=== PATIENT | female | born 1970 | race African-American/Black ===

== ENCOUNTER 2023-09-21 06:19 | Emergency (ER) | payer MEDICAID, SELFPAY ==
--- NOTE | 2023-09-21 | ECG_ITS ---
Test Reason : CHEST TIGHTNESS Blood Pressure : / mmHG Vent. Rate : 089 BPM Atrial Rate : 089 BPM P-R Int : 144 ms QRS Dur : 094 ms QT Int : 394 ms P-R-T Axes : 041 012 034 degrees QTc Int : 479 ms Normal sinus rhythm Normal ECG No previous ECGs available Referred By: Generic ED Physician Electronically Signed By:EDWIN DIAZ
--- NOTE | ~2023-09-21 | XR_ITS ---
EXAMINATION: XR CHEST CLINICAL INFORMATION: Shortness of breath. COMPARISON: None available. TECHNIQUE: Frontal view of the chest was obtained. FINDINGS: The lungs are clear. The cardiomediastinal silhouette is normal in size. There is no pleural effusion or pneumothorax. No acute osseous abnormality. XR/XR chest 1V IMPRESSION: No acute cardiopulmonary findings.
[2023-09-21 06:31] VITALS: BP 127/54; PULSE 94; RESP 20; TEMP 36.7; O2SAT 95; BMI 35.0
[2023-09-21 07:37] LABS: MANUAL DIFF FLAG NO
[2023-09-21 07:44] LABS: Basophils Percent Auto 0.8 % (0-2); Eosinophils Absolute Auto 0.2 X10*3/uL (0.0-0.4); Eosinophils Percent Auto 4.4 % (0-4); Hematocrit 35.2 % (37.0-47.0); Hemoglobin 11.7 g/dl (12.0-16.0); Imm Gran Abs Auto 0.01 X10*3/uL (0.00-0.03); Imm Gran Pct Auto 0.2 % (0.0-0.4); Lymphocytes Absolute Auto 1.3 X10*3/uL (1.2-4.9); Lymphocytes Percent Auto 26.1 % (20-40); Mean Corpuscular HGB Conc 33.2 g/dl (31.0-35.0); Mean Corpuscular Volume 81.3 fL (80.0-98.0); Mean Platelet Volume 10.6 fL (9.4-12.3); Monocytes Absolute Auto 0.5 X10*3/uL (0.1-1.2); Monocytes Percent Auto 9.6 % (2-11); Neutrophils Absolute Auto 2.9 x10*3/uL (2.0-8.3); Neutrophils Percent Auto 58.9 % (45-73); Platelet Count 225 X10*3/uL (160-400); Red Blood Count 4.33 X10*6/uL (4.20-5.50); Red Cell Distribution Width 14.5 % (11.0-16.0)
[2023-09-21 08:14] LABS: Influenza A PCR NEGATIVE (Negative); Influenza B PCR NEGATIVE (Negative); Resp Syncy Virus RNA Qual PCR NEGATIVE (Negative); SARS COV2 PCR INHOUSE NEGATIVE (Negative)
[2023-09-21 08:18] LABS: Alanine Aminotransferase 49 U/L (0-31); Albumin Level 4.2 g/dL (3.5-5.0); Alkaline Phosphatase 82 U/L (39-117); Anion Gap 14 (12-20); Aspartate Amino Transferase 44 U/L (5-31); Bilirubin Total 0.4 mg/dL (0.0-1.0); Blood Urea Nitrogen 9 mg/dL (9-16); Calcium 9.3 mg/dL (8.4-10.2); Carbon Dioxide 24 mmol/L (22-29); Chloride 107 mmol/L (96-108); Creatinine Clr Calc Pharmacy 70.6; Estimated Glomerular Filt Rate 59; Glucose Random 164 mg/dL (60-115); Potassium 4.4 mmol/L (3.3-5.1); Sodium 141 mmol/L (135-145); Total Protein 7.6 g/dL (6.5-8.0)
[2023-09-21 11:51] VITALS: BP 138/75; PULSE 94; RESP 16; TEMP 37.5; O2SAT 98
[2023-09-21 12:13] LABS: IDNOW Serial# 58CA691E; Strep A Nucleic Acid Negative (Negative)
--- NOTE | 2023-09-21 12:42 | ED.ASTHMA ---
HPI - Asthma General Chief Complaint: Asthma Stated Complaint: Asthma Time Seen by Provider: 09/21/23 11:47 Source: patient and group segment consultant Mode of arrival: ambulatory Limitations: language barrier History of Present Illness HPI Narrative: Patient is a 52-year-old [place] Islander-speaking female presenting to the emergency department with complaint of cough and shortness of breath as well as headache and sore throat which has been present for 3 days. Reports was recently sick with similar symptoms. Denies fevers. Denies any abdominal pain, nausea, vomiting, diarrhea. MD complaint: shortness of breath Onset (ago): day(s) Severity: moderate Context: recent URI Associated symptoms: productive cough and chest pain (with episodes of coughing) Related Data Previous Rx's Medication Instructions Recorded albuterol sulfate 90 mcg/actuation 2 puff inhalation Q4-6H PRN 09/21/23 aerosol inhaler shortness of breath or wheezing #6.7 grams azithromycin 250 mg tablet See Rx Instructions PO .COMPLEX #6 09/21/23 tabs benzonatate 100 mg capsule 100 mg PO TID PRN cough #14 caps 09/21/23 prednisone 20 mg tablet 40 mg (2 x 20 mg) PO DAILY #10 tabs 09/21/23 Allergies Allergy/AdvReac Type Severity Reaction Status Date / Time No Known Allergies Allergy Verified 09/21/23 06:30 Review of Systems Review of Systems: As per HPI. Yes all other systems are reviewed and are negative Constitutional: Constitutional: Reports as per HPI [facility] Social History Social History Advance Directives: No Advance Directives Information Provided: No Physical Exam Vital Signs: Vital Signs: Last Vital Signs Temp 99.5 F 09/21/23 11:51 Pulse 94 09/21/23 11:51 Resp 16 09/21/23 11:51 BP 138/75 09/21/23 11:51 Pulse Ox 98 09/21/23 11:51 O2 Del Method Room Air 09/21/23 11:51 BMI result Body Mass Index 35.0 Vital signs have been reviewed and appear to be correct. Blood pressure normal. Heart rate normal. Respiratory rate normal. Temperature normal. Oxygen saturation normal. Const: General: cooperative and no acute distress Orientation/consciousness: oriented to person, oriented to place, oriented to time and patient oriented x3 Limitations: no limitations HEENT: Head: Yes normocephalic and Yes atraumatic Ears: external ears normal and TM abnormal erythematous bilateral General nose exam: Normal external nose present Face and sinus: Yes face symmetric Mouth: oropharynx normal and moist mucous membranes Throat: Yes uvula midline, No uvular edema and Yes cobblestoning Eyes: Pupils: Equal, round and reactive pupils present Neck: Neck: Yes normal visual inspection and Yes supple Lymphatic: no lymphadenopathy noted Resp: Effort & Inspection: normal respiratory effort and able to speak in complete sentences Auscultation: clear to auscultation bilaterally and wheezes scattered wheezes (mild) Cardio: Rate: regular rate Rhythm: regular rhythm Heart sounds: S1 normal heart sound present and S2 normal heart sound present GI: Palpation (GI): Soft to palpation and nontender Auscultation: normoactive bowel sounds : General: Yes no CVA tenderness Back/Spine/Pelvis: Back: no CVA tenderness Skin: General skin exam: elasticity normal and turgor normal Neuro: General: oriented to person, oriented to place, oriented to time, patient oriented x3, moves all extremities, no focal motor deficits and CN's II-XI intact bilaterally Cranial nerves: Yes Equal, round and reactive pupils present Cognition (Neuro): normal cognition Extrem: General: Yes full ROM, Yes no pedal edema and Yes no calf tenderness Psych: Mental Status: mental status grossly normal Affect: normal affect Thought process: Normal thought process present Medical Decision Making Medical Decision Making MDM Narrative: Patient is a 52-year-old [place] Islander-speaking female presenting to the emergency department with complaint of cough and shortness of breath as well as headache and sore throat which has been present for 3 days. On exam patient is awake, A+Ox3, VS WNL, afebrile, normal neurological exam without focal deficits, physical exam findings as above. Given reported symptoms and physical exam findings, initial differential includes viral illness, asthma exacerbation, bronchitis, pneumonia, COVID, flu, strep pharyngitis. Labs notable for no leukocytosis, mild anemia, mildly elevated LFTs. X-ray chest notable for no evidence of pneumonia. My interpretation is in agreement with the radiologist's interpretation. Will treat patient for bronchitis with azithromycin, prednisone, albuterol inhaler and benzonatate. All results discussed with patient and all questions answered. Instructed patient to follow-up with primary care provider. Return precautions discussed at bedside. Patient verbalized understanding of an agreement plan. Differential Diagnosis Differential Diagnoses: The differential diagnosis associated with the presentation includes As per [facility]. Lab Data [facility] Lab Attestation statement: I reviewed the patient's lab results. As per MDM 09/21/23 07:31 09/21/23 07:31 Labs: Lab Results 09/21/23 09/21/23 Range/Units 07:31 11:51 WBC 5.0 (4.8-10.8) X10*3/uL RBC 4.33 (4.20-5.50) X10*6/uL Hgb 11.7 L (12.0-16.0) g/dl Hct 35.2 L (37.0-47.0) % MCV 81.3 (80.0-98.0) fL MCH 27.0 (27.0-33.0) pg MCHC 33.2 (31.0-35.0) g/dl RDW 14.5 (11.0-16.0) % Plt Count 225 (160-400) X10*3/uL MPV 10.6 (9.4-12.3) fL Immature Gran % (Auto) 0.2 (0.0-0.4) % Neut % (Auto) 58.9 (45-73) % Lymph % (Auto) 26.1 (20-40) % [place] % (Auto) 9.6 (2-11) % Eos % (Auto) 4.4 H (0-4) % Baso % (Auto) 0.8 (0-2) % Lymph # (Auto) 1.3 (1.2-4.9) X10*3/uL [place] # (Auto) 0.5 (0.1-1.2) X10*3/uL Eos # (Auto) 0.2 (0.0-0.4) X10*3/uL Baso # (Auto) 0.0 (0.0-0.2) X10*3/uL Abs Immat Gran (auto) 0.01 (0.00-0.03) X10*3/uL Absolute Neuts (auto) 2.9 (2.0-8.3) x10*3/uL Absolute Nucleated RBC 0.000 (0.0-0.012) X10*3/uL Nucleated RBC % (auto) 0.0 (0.0-0.2) /100WBC Sodium 141 (135-145) mmol/L Potassium 4.4 (3.3-5.1) mmol/L Chloride 107 (96-108) mmol/L Carbon Dioxide 24 (22-29) mmol/L Anion Gap 14 (12-20) BUN 9 (9-16) mg/dL Creatinine 0.98 (0.5-1.4) mg/dL Estim Creat Clear Calc 70.6 Estimated GFR 59 Random Glucose 164 H (60-115) mg/dL Calcium 9.3 (8.4-10.2) mg/dL Total Bilirubin 0.4 (0.0-1.0) mg/dL AST 44 H (5-31) U/L ALT 49 H (0-31) U/L Alkaline Phosphatase 82 (39-117) U/L Total Protein 7.6 (6.5-8.0) g/dL Albumin 4.2 (3.5-5.0) g/dL Influenza Type A (PCR) NEGATIVE (Negative) Influenza Type B (PCR) NEGATIVE (Negative) RSV RNA Qual (PCR) NEGATIVE (Negative) SARS-CoV-2 RNA (RT-PCR) NEGATIVE (Negative) S. pyogenes GrpA GENEVA Negative (Negative) Independent Interpretation I performed an independent interpretation of an: EKG (normal sinus rhythm, rate 89bpm, normal pr and qt intervals) and Plain X-Ray Interpretation: No evidence of pneumonia Radiology Impression Discussion of test interpretation with radiology: I have reviewed the radiologist's reading. Radiologist Impression: XR/XR chest 1V IMPRESSION: No acute cardiopulmonary findings. External Record Review External record reviewed: Inpatient record, Office record and Outpatient record Prescription Management I considered prescription management with: Antibiotic and Other Discharge Plan Discharge Clinical Impression: Acute asthmatic bronchitis Patient Disposition: Home, Self-Care Instructions: Asthma (DC) Additional Instructions: Usted fue evaluado hoy en el departamento de emergencias por tos y dificultad para respirar. Juanis muestras de gripe, Covid y estreptococo fueron todas negativas. Est? recibiendo tratamiento para la bronquitis con un antibi?terra; complete el tratamiento completo seg?n lo prescrito. Tambi?n le recetan un tratamiento breve con esteroides para disminuir la inflamaci?n. Le recetan un inhalador que puede usar cada 4 a 6 horas seg?n sea necesario para la dificultad para respirar. Tambi?n le recetar?n medicamentos para la tos. [place] un seguimiento con varghese proveedor de atenci?n primaria esta semana. Regrese al departamento de emergencias si presenta dificultad para respirar que empeora, dolor en el pecho, fiebre que no mejora con Tylenol o ibuprofeno, o cualquier otro s?ntoma preocupante. Prescriptions: New azithromycin 250 mg tablet See Rx Instructions .ROUTE .COMPLEX Qty: 6 0RF Rx Instructions: For 250 mg dose pack: take 500 mg today (day 1), then 250 mg for 4 days (days 2-5) prednisone 20 mg tablet 40 mg PO DAILY Qty: 10 0RF benzonatate 100 mg capsule 100 mg PO TID PRN (Reason: cough) Qty: 14 0RF albuterol sulfate 90 mcg/actuation HFA aerosol inhaler 2 puff inhalation Q4-6H PRN (Reason: shortness of breath or wheezing) Qty: 6.7 0RF Print Language: [place] Islander
== END 2023-09-21 12:58 | disposition home or self-care (01) ==
PROVIDERS: Registered Nurse Emergency; Emergency Provider Emergency Medicine
DX: J45.909 Unspecified asthma, uncomplicated (principal); R06.02 Shortness of breath; Z20.822 Contact with and (suspected) exposure to COVID-19; Z20.828 Contact with and (suspected) exposure to other viral communicable diseases
CPT/HCPCS: 0241U; 71045; 80053; 85025; 87651; 93005; 99283; 99284

== ENCOUNTER → 2023-09-21 07:25 | Outpatient (BNV) | payer MEDICAID, SELFPAY | PROVIDERS: Emergency Provider Emergency Medicine; Visit Provider Internal Medicine | DX: R07.89 Other chest pain (principal) | CPT/HCPCS: 93010 ==

== ENCOUNTER 2024-04-27 15:16 | Outpatient (REF) | payer MEDICAID, SELFPAY ==
--- NOTE | ~2024-04-27 | XR_ITS ---
EXAMINATION: XR LUMBOSACRAL SPINE WITH OBLIQUES CLINICAL INFORMATION: Right-sided low back pain. Right-sided sciatica COMPARISON: None available. TECHNIQUE: AP, both oblique, and lateral views of the lumbar spine. Lateral view of the lumbosacral junction. FINDINGS: Vertebral body heights and disc space heights preserved. No fracture or destructive process. SI joints symmetric. XR/XR lumbar spine 4V min IMPRESSION: Unremarkable exam.
== END 2024-04-27 15:17 | disposition home or self-care (01) ==
LOC: HO.HHCX 15:16
PROVIDERS: Visit Provider Internal Medicine
DX: M54.41 Lumbago with sciatica, right side (principal); G89.29 Other chronic pain
CPT/HCPCS: 72110

== ENCOUNTER 2024-04-28 09:01 | Outpatient (REF) | payer MEDICAID, SELFPAY ==
[2024-04-28 11:08] LABS: MANUAL DIFF FLAG NO
[2024-04-28 11:17] LABS: Basophils Percent Auto 0.9 % (0-2); Eosinophils Absolute Auto 0.1 X10*3/uL (0.0-0.4); Eosinophils Percent Auto 3.3 % (0-4); Hemoglobin 11.9 g/dl (12.0-16.0); Imm Gran Abs Auto 0.01 X10*3/uL (0.00-0.03); Imm Gran Pct Auto 0.2 % (0.0-0.4); Lymphocytes Absolute Auto 2.5 X10*3/uL (1.2-4.9); Lymphocytes Percent Auto 57.9 % (20-40); Mean Corpuscular HGB Conc 33.1 g/dl (31.0-35.0); Mean Corpuscular Hemoglobin 27.3 pg (27.0-33.0); Mean Corpuscular Volume 82.6 fL (80.0-98.0); Monocytes Absolute Auto 0.3 X10*3/uL (0.1-1.2); Monocytes Percent Auto 7.3 % (2-11); Neutrophils Absolute Auto 1.3 x10*3/uL (2.0-8.3); Neutrophils Percent Auto 30.4 % (45-73); Platelet Count 218 X10*3/uL (160-400); Red Blood Count 4.36 X10*6/uL (4.20-5.50); Red Cell Distribution Width 14.5 % (11.0-16.0); White Blood Count 4.3 X10*3/uL (4.8-10.8)
[2024-04-28 11:26] LABS: Estimated Average Glucose 163 mg/dL; Hemoglobin A1c % 7.3 % (<6.0)
[2024-04-28 11:36] LABS: Alanine Aminotransferase 34 U/L (0-31); Albumin Level 4.2 g/dL (3.5-5.0); Alkaline Phosphatase 116 U/L (39-117); Anion Gap 11 (12-20); Aspartate Amino Transferase 28 U/L (5-31); Bilirubin Total 0.2 mg/dL (0.0-1.0); Blood Urea Nitrogen 18 mg/dL (9-16); Calcium 9.3 mg/dL (8.4-10.2); Carbon Dioxide 27 mmol/L (22-29); Chloride 110 mmol/L (96-108); Cholesterol 227 mg/dL (<200); Estimated Glomerular Filt Rate 53; Glucose Random 131 mg/dL (60-115); HDL Cholesterol 43 mg/dL (>40); LDL Cholesterol Calculated 157 mg/dL (<100); Potassium 4.9 mmol/L (3.3-5.1); Sodium 143 mmol/L (135-145); Total Protein 7.4 g/dL (6.5-8.0); Triglycerides 135 mg/dL (<150)
[2024-04-28 11:53] LABS: TSH reflex Free T4 1.67 uIU/mL (0.32-4.0)
== END 2024-04-28 09:02 | disposition home or self-care (01) ==
LOC: HO.HHCL 09:01
PROVIDERS: Visit Provider Internal Medicine
DX: E11.9 Type 2 diabetes mellitus without complications (principal)
CPT/HCPCS: 36415; 80053; 80061; 83036; 84443; 85025

== ENCOUNTER 2024-05-31 14:31 | Outpatient (AMB) | payer MEDICAID, SELFPAY ==
--- NOTE | 2024-05-31 14:32 | MHC.OFFVIS ---
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 Denies any recent trauma, injury or falls. She moved from [place] about a year ago and is in the process of establishing care with multiple providers. Patient is being evaluated by our Orthopedic providers tomorrow for knee pain. She completed 9 sessions of physical therapy in [place] without significant benefit. Back pain is axial and primarily localized to the right side of lower back and right sacral area with radiation into her right buttock and occasionally into her right lower extremity. Pain is most severe with prolonged sitting or standing. She denies any radiation of pain below knee level. Reports occasional tingling and burning in bilateral lower extremities posteriorly and in her feet. Denies previous spine surgery or injections. Pain affects her daily activities and functioning, mobility, sleep and social interactions. She has been managing her symptoms with cyclobenzaprine and meloxicam. Patient reports she tries to avoid muscle relaxants due to significant drowsiness and is open to trial and other muscle relaxants. Most recent lumbar x-ray was unremarkable. Denies any fever or chills, abdominal or flank pain, weakness, footdrop, bladder or bowel dysfunction or saddle anesthesia. Location: Lower back pain, right side Duration: Chronic pain >1 year Characteristics of symptom or complaint: Throbbing, pinching, sore, aching, spreading, stabbing, heavy Aggravating or associated factors: Movements, standing, prolonged sitting, climbing stairs, cold weather Relieving factors: Rest, laying down, Ibuprofen, meloxicam, cyclobenzaprine, heat Treatment: PT in 2022 in [place]- total 9 sessions-no improvement [facility] Medical History (Updated 06/01/24 @ 07:58 by CARMELITA Tejada) Diabetes mellitus Bilateral knee pain Cervical cancer Moderate persistent asthma Pulmonary nodules Low back pain Surgical History (Updated 06/01/24 @ 07:55 by CARMELITA Tejada) History of hysterectomy (~2018) Social History (Updated 06/01/24 @ 08:03 by CARMELITA Tejada) Household Members: Spouse and Children Household Members Other:: grand-daughters Alcohol intake: never Patient Tobacco Use Status: Never used Tobacco Current occupational status: unemployed Review of Systems Const All systems reviewed & are unremarkable except as noted in HPI and below Physical Exam Vital Signs: Last Vital Signs Pulse 83 05/31/24 14:41 BP 124/59 L 05/31/24 14:41 Pulse Ox 97 05/31/24 14:41 Oxygen Delivery Method Room Air 05/31/24 14:41 BMI result Body Mass Index 35.1 General: Appears afebrile. Alert and oriented. Mood and affect appropriate. Follows and participates in conversation appropriately. Respiratory effort is unlabored. No cough. Able to transition from sit to stand unassisted. Ambulates with bilaterally normal heel strike and toe off. General: Yes no CVA tenderness Back/Spine/Pelvis Other: Patient is able to walk and stand on heels and tip toes with no difficulties demonstrating good motor tone. No limping. Can flex forward to 65-70 degrees and extend to 5-10 degrees before experiencing lumbar pain. Demonstrates 5/5 strength of quadriceps bilaterally as well as flexion/dorsiflexion of bilateral feet against resistance. 2+ pedal pulses bilaterally. Seated straight leg rise with dorsiflexion negative bilaterally. +2 patellar and achilles reflexes bilaterally. Facet loading test positive bilaterally. Marina sign, Darryn?s, [place], Pelvic compression and Stinchfield tests are positive on the right. No groin pain with I/E hip rotations. Mild TTP to right GTB. Valsalva maneuver negative. Back: no CVA tenderness Cervical Spine: cervical ROM normal, cervical muscular tenderness and No Cervical spine tenderness Thoracic/Lumbar Spine: thoracic and lumbar spine normal to inspection, No Thoracic/lumbar spine scar(s), Lasegue's sign negative, straight leg raise negative bilaterally, pain with thoraco-lumbar ROM, paraspinal muscle tenderness, thoraco-lumbar ROM limited, No thoracic spinal tenderness and No lumbar spinal tenderness Pelvis: buttock tenderness on the right and no sciatic notch tenderness Sacroiliac joints: on the right tender to palpation and on the left nontender Extrem General: Yes capillary refill normal, Yes no clubbing, cyanosis or edema and Yes no calf tenderness Results Reviewed Results Reviewed: XR LUMBOSACRAL SPINE WITH OBLIQUES 04/27/24 CLINICAL INFORMATION: Right-sided low back pain. Right-sided sciatica FINDINGS: Vertebral body heights and disc space heights preserved. No fracture or destructive process. SI joints symmetric. IMPRESSION: Unremarkable exam. Assessment & Plan Assessment & Plan (1) Low back pain: Code(s): M54.50 - Low back pain, unspecified Category: Medical (2) Chronic right SI joint pain: Code(s): M53.3 - Sacrococcygeal disorders, not elsewhere classified; G89.29 - Other chronic pain Category: Medical (3) Sacroiliitis: Code(s): M46.1 - Sacroiliitis, not elsewhere classified Category: Medical (4) Muscle spasm of back: Code(s): M62.830 - Muscle spasm of back Category: Medical Plan Discussed interventional treatments for right sacroiliac joint area, including diagnostic injection for potential therapeutic injection, peripheral nerve stimulation, RFA, and SI joint fusion procedures. Schedule right diagnostic sacroiliac joint injection with local and fluoroscopy. Expectations, risks and benefits were reviewed. Patient is aware she will be contacted to schedule this procedure. Script provided for tizanidine. Patient will stop cyclobenzaprine due to drowsiness. Medication prescribed and all its risks, side effects, and alternatives thoroughly explained to the patient. Script provided for BP cuff monitor per patient request due to occasional elevations in BP. Continue daily physical activity, home exercise program, adequate hydration, weight loss and good posture. All questions and concerns have been answered and patient agreed with the treatment plan. Follow-up after injection and sooner as needed. Medications: New tizanidine 2 mg PO TID 30 days PRN 90 tabs 0RF muscle spasms M54.50 - Low back pain, unspecified, M62.830 - Muscle spasm of back blood pressure test kit-large As directed for BP monitoring 1 ea 0RF I10 - Essential (primary) hypertension Coding Level of Care Code New Pt Level 4 (16287) Complex EM visit Add On G2211 Diagnoses Low back pain M54.50 Chronic right SI joint pain M53.3; G89.29 Sacroiliitis M46.1 Muscle spasm of back M62.830
[2024-05-31 14:41] VITALS: BP 124/59; PULSE 83; O2SAT 97; BMI 35.1
== END 2024-05-31 15:12 | disposition home or self-care (01) ==
PROVIDERS: PCP Internal Medicine; Visit Provider Nurse Practitioner Family
DX: M54.50 Low back pain, unspecified (principal); M53.3 Sacrococcygeal disorders, not elsewhere classified; G89.29 Other chronic pain; M46.1 Sacroiliitis, not elsewhere classified; M62.830 Muscle spasm of back
CPT/HCPCS: 99204

== ENCOUNTER → 2024-05-31 14:31 | Outpatient (BNVA) | payer MEDICAID, SELFPAY | PROVIDERS: PCP Internal Medicine; Visit Provider Nurse Practitioner Family | DX: M54.50 Low back pain, unspecified (principal); M62.830 Muscle spasm of back; M53.3 Sacrococcygeal disorders, not elsewhere classified; G89.29 Other chronic pain; M46.1 Sacroiliitis, not elsewhere classified | CPT/HCPCS: 99212 ==

== ENCOUNTER 2024-06-01 15:19 | Outpatient (AMB) | payer MEDICAID, SELFPAY ==
--- NOTE | 2024-06-01 15:26 | MHC.OFFVIS ---
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 Patient reports pain with prolonged ambulation, flexion, extension and squatting down. She expresses numbness and tingling that radiates down to her toes. Daily pain on anterior aspect of her knees that comes and goes through out the day. Tylenol and ibuprofen do not give adequate relief. Hx of DM Type 2. 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 The patient reports that she has a dull, achy pain primarily located in the anterior aspect of the knee at baseline, that can progress to a sharp pain with certain movements, such as squatting down or hyperflexion of the knee. The patient states that she does also have a history of low back and hip pain, which can radiate down to the knee. The patient reports that she has been trying to take Tylenol and ibuprofen, with minimal relief. The patient reports that she would like to explore injections if possible, but states that she would like to do this at a later time. No other acute complaints or concerns at this time. [facility] Medical History Diabetes mellitus Bilateral knee pain Cervical cancer Moderate persistent asthma Pulmonary nodules Low back pain Surgical History History of hysterectomy (~2018) Social History Household Members: Spouse and Children Household Members Other:: grand-daughters Alcohol intake: never Patient Tobacco Use Status: Never used Tobacco Current occupational status: unemployed Review of Systems Const All systems reviewed & are unremarkable except as noted in HPI and below Physical Exam Extrem Other: On inspection, there is no visible deformity of bilateral knee Mild edema of bilateral knees noted No erythema, ecchymosis noted No lacerations, abrasions, open areas No evidence of infection Patient reports tenderness to palpation of the medial and lateral joint lines, and the peripatellar and suprapatellar region of bilateral knees Patient reports no tenderness to palpation of the tibial tubercle, quad tendon, or posterior aspects of bilateral knees Patient is able to extend bilateral knees to 0 degrees and flex to approximately 120 degrees without difficulty No ligamentous laxity noted Distal sensation intact Capillary refill brisk Negative Kaylah's bilaterally Results Reviewed Results Reviewed: X-rays obtained in the office today and independently reviewed by me, Roberto Burks PA-C, demonstrate ajiq-od-lfdujugv osteoarthritis of bilateral tibiofemoral joints of knees. No acute fracture or bony abnormality noted. Assessment & Plan Assessment & Plan (1) Degenerative arthritis of knee, bilateral: Code(s): M17.0 - Bilateral primary osteoarthritis of knee Category: Medical Plan 1. Osteoarthritis of bilateral knees, ongoing for approximately 2-3 years Patient is educated about this condition, as well as the treatment options available, including conservative management, injections, and surgery The patient states that she is interested in injections, but states that she would like to have 3-4 weeks to think about these prior to getting the injection, and states she does not feel prepared to have 1 today However the patient states that she would like to explore conservative management with physical therapy today Therefore, PT for strengthening, range of motion, stabilization of bilateral knees is ordered today Patient will follow-up in 4 weeks for repeat assessment and discussion for potential injections, sooner with any acute concerns Orders: Orders XR knee RT 3V Today M17.11 - Unilateral primary osteoarthritis, right knee PT Evaluation and Treatment Today M17.0 - Bilateral primary osteoarthritis of knee XR knee LT 3V Today M25.562 - Pain in left knee Coding Level of Care Code New Pt Level 3 (93400) Diagnoses Degenerative arthritis of knee, bilateral M17.0
== END 2024-06-01 16:31 | disposition home or self-care (01) ==
PROVIDERS: PCP Internal Medicine
DX: M17.0 Bilateral primary osteoarthritis of knee (principal)
CPT/HCPCS: 99203

== ENCOUNTER 2024-06-01 15:23 | Outpatient (REF) | payer MEDICAID, SELFPAY ==
--- NOTE | ~2024-06-01 | XR_ITS ---
EXAMINATION: XR BOTH KNEES AP STANDING XR LEFT KNEE, 2 VIEWS XR RIGHT KNEE, 2 VIEWS CLINICAL INFORMATION: Pain in the left knee. Primary osteoarthritis in the right knee. COMPARISON: None available. TECHNIQUE: Standing AP view of both knees and lateral and sunrise views of each knee. FINDINGS: LEFT KNEE: Mild medial and lateral compartment osteoarthritis with mild joint space narrowing and small marginal osteophytes. Dwbf-ui-xpejzwwv osteoarthritis in the lateral facets and patellofemoral compartment. No joint effusion. No fracture or malalignment. Soft tissues are unremarkable. RIGHT KNEE: Mwsq-du-tbwswjtl medial compartment joint space narrowing with marginal osteophytes. Additional ztno-ws-eihidrab osteoarthritis in the lateral facets of the patellofemoral compartment. Lateral compartment appears relatively well preserved. No joint effusion. No fracture or malalignment. Soft tissues are unremarkable. XR/XR knee RT 3V IMPRESSION: Caob-lp-iiarzydz tricompartmental osteoarthritis in both knees, most notably in the medial and patellofemoral compartments. Electronically signed by: David Bhatti MD 06/14/2024 11:47 PM EDT
--- NOTE | ~2024-06-01 | XR_ITS ---
EXAMINATION: XR BOTH KNEES AP STANDING XR LEFT KNEE, 2 VIEWS XR RIGHT KNEE, 2 VIEWS CLINICAL INFORMATION: Pain in the left knee. Primary osteoarthritis in the right knee. COMPARISON: None available. TECHNIQUE: Standing AP view of both knees and lateral and sunrise views of each knee. FINDINGS: LEFT KNEE: Mild medial and lateral compartment osteoarthritis with mild joint space narrowing and small marginal osteophytes. Irsm-cf-ddrdhukm osteoarthritis in the lateral facets and patellofemoral compartment. No joint effusion. No fracture or malalignment. Soft tissues are unremarkable. RIGHT KNEE: Okxu-js-cdnktcot medial compartment joint space narrowing with marginal osteophytes. Additional oczy-du-kqdklrrl osteoarthritis in the lateral facets of the patellofemoral compartment. Lateral compartment appears relatively well preserved. No joint effusion. No fracture or malalignment. Soft tissues are unremarkable. XR/XR knee LT 3V IMPRESSION: Rgwt-tw-kunpyigv tricompartmental osteoarthritis in both knees, most notably in the medial and patellofemoral compartments. Electronically signed by: David Bhatti MD 06/14/2024 11:47 PM EDT
== END 2024-06-01 15:24 | disposition home or self-care (01) ==
LOC: HO.HOSX 15:23
PROVIDERS: PCP Internal Medicine
DX: M25.562 Pain in left knee (principal); M17.11 Unilateral primary osteoarthritis, right knee; M17.0 Bilateral primary osteoarthritis of knee
CPT/HCPCS: 73562; 99212

== ENCOUNTER 2024-06-02 15:13 | Outpatient (REF) | payer MEDICAID, SELFPAY ==
--- NOTE | ~2024-06-02 | MM_ITS ---
EXAMINATION: MM SCREENING DIGITAL BREAST TOMOSYNTHESIS, BILATERAL CLINICAL INFORMATION: Screening. Asymptomatic. COMPARISON: Mammography: Comparison is made with available priors TECHNIQUE: Digital breast mammography with tomosynthesis is performed in both the craniocaudal and mediolateral oblique views along with computer-aided detection (CAD). FINDINGS: There are scattered areas of fibroglandular density (ACR BI-RADS breast composition Category b). There are no significant masses, abnormal calcifications, or other abnormalities. MM/MM tomosynthesis screening BI IMPRESSION: No mammographic evidence of malignancy. ASSESSMENT: BI-RADS BI-RADS 1 - Negative RECOMMENDATION: Routine annual mammography screening. 1 year F/U This examination should not preclude the clinical evaluation of a suspicious palpable abnormality. This patient's information was entered into a reminder system with a target due date for their next mammogram. Electronically signed by: Darlene Caballero DO 06/21/2024 05:59 PM EDT
== END 2024-06-02 15:14 | disposition home or self-care (01) ==
LOC: HO.MAMMO 15:13
PROVIDERS: PCP Internal Medicine; Visit Provider Internal Medicine
DX: Z12.31 Encounter for screening mammogram for malignant neoplasm of breast (principal)
CPT/HCPCS: 77063; 77067

== ENCOUNTER → 2024-06-02 15:15 | Outpatient (BNV) | payer MEDICAID, SELFPAY | PROVIDERS: PCP Internal Medicine; Visit Provider Internal Medicine | DX: Z12.31 Encounter for screening mammogram for malignant neoplasm of breast (principal) | CPT/HCPCS: 77063; 77067 ==

== ENCOUNTER 2024-06-23 09:00 | Outpatient (REF) | payer MEDICAID, SELFPAY | END 2024-06-23 09:01 | disposition home or self-care (01) | LOC: CF 09:00 | PROVIDERS: Visit Provider Internal Medicine | DX: M53.3 Sacrococcygeal disorders, not elsewhere classified (principal); G89.29 Other chronic pain; M46.1 Sacroiliitis, not elsewhere classified | CPT/HCPCS: 27096; J2003; J2795 ==

== ENCOUNTER 2024-06-23 11:12 | Outpatient (AMB) | payer MEDICAID, SELFPAY ==
[2024-06-23 12:56] VITALS: BP 122/60; PULSE 65; RESP 17; O2SAT 100
--- NOTE | 2024-06-23 13:34 | MHC.OFFVIS ---
Vital Signs 06/23/24 12:56 06/23/24 13:36 BP 122/60 111/63 Blood Pressure Location Lt brachial Lt brachial Position Sitting Sitting Respiration 17 17 Pulse 65 68 Pulse Source Pulse Oximeter Pulse Oximeter Pulse Oximetry (%) 100 100 Oxygen Delivery Method Room Air Room Air Comment Pre-op Post-op Intake Visit Reasons: Right Dx SIJ inj Allergies No Known Allergies Allergy (Verified 06/01/24 16:02) HPI HPI Right Dx SIJ inj: Details: Patient presents for scheduled procedure. Denies any recent cough, cold, infection, fever or other significant changes in medical history since last office visit. [facility] Medical History Diabetes mellitus Bilateral knee pain Cervical cancer Moderate persistent asthma Pulmonary nodules Low back pain Surgical History History of hysterectomy (~2018) Social History Household Members: Spouse and Children Household Members Other:: grand-daughters Alcohol intake: never Patient Tobacco Use Status: Never used Tobacco Current occupational status: unemployed Office Procedures Joint Injection/Aspiration Joint Injection/Aspiration Details: Diagnostic Sacroiliac Joint Injection, Right The procedure, its benefits, and its risks were explained and written informed consent was obtained from the patient. Immediately prior to starting the procedure, a time-out safety check was conducted. The patient's identification, procedure name, procedure site, and procedure laterality were confirmed with the patient. ? Patient was placed prone on the fluoroscopy table and the lumbosacral area was prepped using ChloraPrep and draped with sterile drapein standard fashion. The C-arm was rotated in a contralateral oblique fashion until the medial border of the iliac crest no longer foreshadowed the posterior sacroiliac joint line. The skin and subcutaneous tissue was anesthetized using 1 mL of 0.75% plain lidocaine with 1.5-inch 25-gauge needle in the middle region of the joint line.? A 3.5-inch 22-gauge spinal needle with small bend on the tip was slowly advanced towards the joint line, coaxial to the x-ray beam. Once bony content was obtained, the needle was easily slid into the intra-articular space.? Intra-articular needle position was confirmed using lateral fluoroscopy.? A total volume of 2.5mL of ropivacaine 0.5% was injected intra-articularly. The stylet was reinserted and needle was removed. The patient tolerated the procedure well. Patient denied any lower extremity weakness or numbness. Patient was observed for 30 min and was discharged after fulfilling the standard discharge criteria. Coding 48265 - Sacroiliac Procedure code (CPT) selection complete Assessment & Plan Assessment & Plan (1) Sacroiliitis: Code(s): M46.1 - Sacroiliitis, not elsewhere classified Category: Medical (2) Chronic right SI joint pain: Code(s): M53.3 - Sacrococcygeal disorders, not elsewhere classified; G89.29 - Other chronic pain Category: Medical Plan Patient is status post right diagnostic sacroiliac joint injection. Patient tolerated procedure well and was discharged home in stable condition with discharge instructions. All questions were answered. We will follow-up via telephone or in clinic to assess response to therapy. A follow-up appointment was made during today's visit. Orders: Orders FL guidance in treatment room Today G89.29 - Other chronic pain, M53.3 - Sacrococcygeal disorders, not elsewhere classified Coding Level of Care Code Procedure Only Diagnoses Sacroiliitis M46.1 Chronic right SI joint pain M53.3; G89.29 CPT Codes Coding - Joint 9: 77018 - Sacroiliac ([id number])
[2024-06-23 13:36] VITALS: BP 111/63; PULSE 68; RESP 17; O2SAT 100
== END 2024-06-23 13:35 | disposition home or self-care (01) ==
LOC: HO.PMCPRC 11:12
PROVIDERS: PCP Internal Medicine; Visit Provider Internal Medicine
DX: M46.1 Sacroiliitis, not elsewhere classified (principal); M53.3 Sacrococcygeal disorders, not elsewhere classified; G89.29 Other chronic pain
CPT/HCPCS: 27096

== ENCOUNTER 2024-06-27 14:24 | Outpatient (AMB) | payer MEDICAID, SELFPAY ==
--- NOTE | 2024-06-27 14:32 | A.OFFVIS_ITS ---
Vital Signs 06/27/24 14:36 Height 5 ft 3 in Weight 192 lb BMI 34.0 BP 119/66 Blood Pressure Location Rt brachial Position Sitting Pulse 82 Pulse Source Pulse Oximeter Pulse Oximetry (%) 98 Oxygen Delivery Method Room Air Intake Visit Reasons: s/p right Dx SIJ inj Intake Note: Pain today 03/30 Baking Assistant Required: Yes Baking Assistant Language: Trial Judge Name: Madelyn # [id number] Accompanied by: Self / Same As Patient Allergies No Known Allergies Allergy (Verified 06/27/24 14:37) HPI Comments Details: Patient presents to the office for status post sacroiliac joint injection on 06/23/[address] King. agency service representative was utilized during this encounter. She reports no significant relief was noted from the diagnostic injection. Patient reports pain back going down into her right calf and buttocks with associated numbness and tingling and intermittent heaviness. Pain is present with any activity, especially with walking or prolonged standing, bending or prolonged sitting. Denies any fever, chills, bladder or bowel dysfunction or saddle anesthesia. Past Procedure: 06/23/24: Right diagnostic sacroiliac joint injection: no significant relief PRIOR: Patient is a 53-year-old Macanese-speaking female with history of chronic low back pain, arthritis, knee pain, diabetes (A1C=7.3), cervical CA s/p hysterectomy (2018), pulmonary nodules, presenting today for initial evaluation for right-sided low back. Denies any recent trauma, injury or falls. She moved from [place] about a year ago and is in the process of establishing care with multiple providers. Patient is being evaluated by our Orthopedic providers tomorrow for knee pain. She completed 9 sessions of physical therapy in [place] without significant benefit. Back pain is axial and primarily localized to the right side of lower back and right sacral area with radiation into her right buttock and occasionally into her right lower extremity. Pain is most severe with prolonged sitting or standing. She denies any radiation of pain below knee level. Reports occasional tingling and burning in bilateral lower extremities posteriorly and in her feet. Denies previous spine surgery or injections. Pain affects her daily activities and functioning, mobility, sleep and social interactions. She has been managing her symptoms with cyclobenzaprine and meloxicam. Patient reports she tries to avoid muscle relaxants due to significant drowsiness and is open to trial and other muscle relaxants. Most recent lumbar x-ray was unremarkable. Denies any fever or chills, abdominal or flank pain, weakness, footdrop, bladder or bowel dysfunction or saddle anesthesia. Location: Lower back pain, right side Duration: Chronic pain >1 year Characteristics of symptom or complaint: Throbbing, pinching, sore, aching, spreading, stabbing, heavy Aggravating or associated factors: Movements, standing, prolonged sitting, climbing stairs, cold weather Relieving factors: Rest, laying down, Ibuprofen, meloxicam, cyclobenzaprine, heat Treatment: PT in 2022 in [place]- total 9 sessions-no improvement [facility] Medical History Diabetes mellitus Bilateral knee pain Cervical cancer Moderate persistent asthma Pulmonary nodules Low back pain Surgical History History of hysterectomy (~2018) Social History Household Members: Spouse and Children Household Members Other:: grand-daughters Alcohol intake: never Patient Tobacco Use Status: Never used Tobacco Current occupational status: unemployed Review of Systems Const All systems reviewed & are unremarkable except as noted in HPI and below Physical Exam Vital Signs: Last Vital Signs Pulse 82 06/27/24 14:36 BP 119/66 06/27/24 14:36 Pulse Ox 98 06/27/24 14:36 Oxygen Delivery Method Room Air 06/27/24 14:36 BMI result Body Mass Index 34.0 General: Appears afebrile. Alert and oriented. Mood and affect appropriate. Follows and participates in conversation appropriately. Respiratory effort is unlabored. No cough. Able to transition from sit to stand unassisted. Ambulates with bilaterally normal heel strike and toe off, reports pain increase on the right with toe and heel standing. General: Yes no CVA tenderness Back/Spine/Pelvis Other: Limited lumbar ROM due to pain. Mildly antalgic gait. No limping. Lumbar flexion forward in bending reproduces moderate symptoms, lumbar extension reproduces mild pain. Demonstrates 5/5 left and 4/5 right strength of quadriceps bilaterally as well as flexion/dorsiflexion of bilateral feet against resistance. 2+ pedal pulses bilaterally. Seated straight leg rise with dorsiflexion positive on the right. +2 patellar and +1 achilles reflexes bilaterally. Facet loading test positive bilaterally. Marina sign, Darryn?s, Pelvic compression and Stinchfield tests are positive on the right. No groin pain with I/E hip rotations. Mild TTP to right GTB. Back: no CVA tenderness Cervical Spine: cervical ROM normal, cervical muscular tenderness and No Cervical spine tenderness Thoracic/Lumbar Spine: thoracic and lumbar spine normal to inspection, No Thoracic/lumbar spine scar(s), Lasegue's sign positive on the right and diffuse, pain with thoraco-lumbar ROM, paraspinal muscle tenderness, thoraco-lumbar ROM limited, No thoracic spinal tenderness, No lumbar spinal tenderness and straight leg raise positive right at 50 degrees Pelvis: buttock tenderness on the right and sciatic notch tenderness on the right Sacroiliac joints: on the right tender to palpation and on the left nontender Results Reviewed Results Reviewed: XR LUMBOSACRAL SPINE WITH OBLIQUES 04/27/24 CLINICAL INFORMATION: Right-sided low back pain. Right-sided sciatica FINDINGS: Vertebral body heights and disc space heights preserved. No fracture or destructive process. SI joints symmetric. IMPRESSION: Unremarkable exam. Assessment & Plan Assessment & Plan (1) Chronic right SI joint pain: Code(s): M53.3 - Sacrococcygeal disorders, not elsewhere classified; G89.29 - Other chronic pain Category: Medical (2) Sacroiliitis: Code(s): M46.1 - Sacroiliitis, not elsewhere classified Category: Medical (3) Lumbar radiculopathy: Code(s): M54.16 - Radiculopathy, lumbar region Category: Medical (4) Low back pain: Code(s): M54.50 - Low back pain, unspecified Category: Medical Plan Patient is status post right diagnostic sacroiliac injection with no significant pain relief. She endorses right-sided radiculopathy in L5-S1 distribution. We will proceed with lumbar spine MRI as next steps to assess for neural integrity and compression. Scripts provided for meloxicam and tizanidine. Side effects and precautions discussed with patient. All questions and concerns have been answered and patient agreed with the treatment plan. Patient will return to the clinic to discuss results of the MRI findings when it is done and consider interventional therapy as indicated. Orders: Orders MR lumbar spine wo con Today G89.29 - Other chronic pain, M46.1 - Sacroiliitis, not elsewhere classified, M53.3 - Sacrococcygeal disorders, not elsewhere classified, M54.16 - Radiculopathy, lumbar region Medications: New meloxicam 15 mg PO DAILY 30 tabs 0RF pain G89.29 - Other chronic pain, M46.1 - Sacroiliitis, not elsewhere classified, M53.3 - Sacrococcygeal disorders, not elsewhere classified, M54.16 - Radiculopathy, lumbar region Refilled tizanidine 2 mg PO TID PRN 90 tabs 0RF muscle spasms 30 days M54.50 - Low back pain, unspecified, M62.830 - Muscle spasm of back Coding Level of Care Code Est Pt Level 4 (31181) Complex EM visit Add On G2211 Diagnoses Chronic right SI joint pain M53.3; G89.29 Sacroiliitis M46.1 Lumbar radiculopathy M54.16 Low back pain M54.50
[2024-06-27 14:36] VITALS: BP 119/66; PULSE 82; O2SAT 98; BMI 34.0
== END 2024-06-27 14:52 | disposition home or self-care (01) ==
PROVIDERS: PCP Internal Medicine; Visit Provider Nurse Practitioner Family
DX: M53.3 Sacrococcygeal disorders, not elsewhere classified (principal); G89.29 Other chronic pain; M46.1 Sacroiliitis, not elsewhere classified; M54.16 Radiculopathy, lumbar region; M54.50 Low back pain, unspecified
CPT/HCPCS: 99214

== ENCOUNTER → 2024-06-27 14:24 | Outpatient (BNVA) | payer MEDICAID, SELFPAY | PROVIDERS: PCP Internal Medicine; Visit Provider Nurse Practitioner Family | DX: M46.1 Sacroiliitis, not elsewhere classified (principal); M53.3 Sacrococcygeal disorders, not elsewhere classified; G89.29 Other chronic pain; M54.16 Radiculopathy, lumbar region; M54.50 Low back pain, unspecified | CPT/HCPCS: 99212 ==

== ENCOUNTER 2024-07-01 15:34 | Outpatient (REF) | payer MEDICAID, SELFPAY ==
[2024-07-01 16:31] LABS: MANUAL DIFF FLAG NO
[2024-07-01 17:11] LABS: Basophils Absolute Auto 0.1 X10*3/uL (0.0-0.2); Basophils Percent Auto 0.8 % (0-2); Eosinophils Absolute Auto 0.2 X10*3/uL (0.0-0.4); Hematocrit 37.5 % (37.0-47.0); Hemoglobin 12.2 g/dl (12.0-16.0); Imm Gran Abs Auto 0.01 X10*3/uL (0.00-0.03); Imm Gran Pct Auto 0.2 % (0.0-0.4); Lymphocytes Absolute Auto 2.8 X10*3/uL (1.2-4.9); Lymphocytes Percent Auto 46.4 % (20-40); Mean Corpuscular HGB Conc 32.5 g/dl (31.0-35.0); Mean Corpuscular Hemoglobin 26.9 pg (27.0-33.0); Mean Corpuscular Volume 82.8 fL (80.0-98.0); Mean Platelet Volume 11.5 fL (9.4-12.3); Monocytes Absolute Auto 0.4 X10*3/uL (0.1-1.2); Monocytes Percent Auto 6.3 % (2-11); Neutrophils Absolute Auto 2.6 x10*3/uL (2.0-8.3); Neutrophils Percent Auto 43.3 % (45-73); Platelet Count 234 X10*3/uL (160-400); Red Blood Count 4.53 X10*6/uL (4.20-5.50)
[2024-07-06 21:44] LABS: Class Alternaria alternata 0; Class Aspergillus fumigatus 0; Class Bermuda Grass 0; Class Birch 0; Class Cat Dander 0; Class Cladosporium herbarum 0; Class Cockroach 0; Class Common Ragweed 0; Class Cottonwood 0; Class Derm. pterony 0; Class Dermatophagoides farinae 0; Class Dog Dander 0; Class Elm 0; Class Maple Box Elder 0; Class Mountain Cedar 0; Class Mouse Urine Protein 0; Class Mugwort 0; Class Oak 0; Class Penicillium crysogenum 0; Class Rough Pigweed 0; Class Sheep Sorrel 0; Class Sycamore 0; Class Timothy Grass 0; Class Walnut Tree 0; Class White Ash 0; Class White Mulberry 0; D001 IgE D pteronyssinus <0.10 kU/L; D002 - IgE D farinae <0.10 kU/L; E001 - IgE Cat Dander <0.10 kU/L; E005 - IgE Dog Dander <0.10 kU/L; E072-IgE Mouse Urine <0.10 kU/L; G002 IgE Bermuda Grass <0.10 kU/L; G006 - IgE Timothy Grass <0.10 kU/L; I006-IgE Cockroach, German <0.10 kU/L; Immunoglobulin E 12 kU/L (<OR=114); M001 IgE Penicillium chrysogen <0.10 kU/L; M002 - IgE Cladosporium herbar <0.10 kU/L; M003 - IgE Aspergillus fumigat <0.10 kU/L; M006 - IgE Alternaria alternat <0.10 kU/L; T001 IgE Maple/Box Elder <0.10 kU/L; T003 IgE Common Silver Birch <0.10 kU/L; T006 - IgE Cedar, Mountain <0.10 kU/L; T007 - IgE Oak, White <0.10 kU/L; T008 IgE Elm, American <0.10 kU/L; T010 - IgE Walnut <0.10 kU/L; T011 - IgE Maple Leaf Sycamore <0.10 kU/L; T014 - IgE Cottonwood <0.10 kU/L; T015 - IgE Ash, White <0.10 kU/L; T070 - IgE White Mulberry <0.10 kU/L; W001 - IgE Ragweed, Short <0.10 kU/L; W006 - IgE Mugwort <0.10 kU/L; W014 IgE Pigweed, Common <0.10 kU/L; W018 IgE Sheep Sorrel <0.10 kU/L
== END 2024-07-01 15:35 | disposition home or self-care (01) ==
LOC: HO.LAB 15:34
PROVIDERS: PCP Internal Medicine; Visit Provider Internal Medicine Pulmonary Disease
DX: J45.40 Moderate persistent asthma, uncomplicated (principal); R91.8 Other nonspecific abnormal finding of lung field; G47.33 Obstructive sleep apnea (adult) (pediatric); R06.09 Other forms of dyspnea; Z91.09 Other allergy status, other than to drugs and biological substances
CPT/HCPCS: 36415; 82785; 85025; 86003; 99202

== ENCOUNTER 2024-07-01 15:34 | Outpatient (AMB) | payer MEDICAID, SELFPAY ==
[2024-07-01 15:40] VITALS: BP 94/60; PULSE 77; O2SAT 98
--- NOTE | 2024-07-01 15:40 | A.OFFVIS_ITS ---
Vital Signs 07/01/24 15:40 Weight 192 lb 14.472 oz BP 94/60 Blood Pressure Location Lt brachial Position Sitting Pulse 77 Pulse Source Pulse Oximeter Pulse Oximetry (%) 98 Oxygen Delivery Method Room Air Intake Visit Reasons: moderate asthma Allergies No Known Allergies Allergy (Verified 07/01/24 15:42) Medication List - Last Reconciled 07/01/24 by Gifty Herrera LPN albuterol sulfate 90 mcg/actuation 2 puffs inhalation Q4-6H PRN blood pressure test kit-large As directed for BP monitoring famotidine 40 mg PO DAILY fluticasone propion-salmeterol 250-50 mcg/dose (Advair Diskus) 1 ea inhalation BID lisinopril 10 mg PO DAILY meloxicam 15 mg PO DAILY metformin 850 mg PO tizanidine 2 mg PO TID PRN 30 days HPI HPI moderate asthma: Details: 53-year-old lady, nonsmoker, with underlying history of asthma since childhood, environmental allergies, and pulmonary nodules, previously seen by pulmonology in [place] presents here after moving to [facility] care. Patient states that she has been using Advair and albuterol MDI with suboptimal control of her asthma symptoms. Patient also complains of significant environmental allergies. Patient states that she used to use Singulair with some improvement in her symptom control. Patient also complains of orthopnea and dyspnea on exertion, unrestful for sleep, and daytime sleepiness. Patient states that there is family history of lung disease, though she is not sure of what kind. [facility] Medical History Diabetes mellitus Bilateral knee pain Cervical cancer Moderate persistent asthma Pulmonary nodules Low back pain Surgical History History of hysterectomy (~2018) Social History Household Members: Spouse and Children Household Members Other:: grand-daughters Alcohol intake: never Patient Tobacco Use Status: Never used Tobacco Current occupational status: unemployed Review of Systems Const Denies daytime sleepiness, Denies excessive sweating, Reports fatigue, Denies fever(s), Reports lethargy, Denies malaise, Denies night sweats, Reports snoring and Denies weight loss Eyes Denies blurry vision and Denies itchy eyes ENT Reports nasal congestion, Reports post nasal drip, Denies sinus pain, Denies sinus pressure and Denies other ( Thrush) Card Denies chest pain, Reports pedal edema, Denies dyspnea, Reports orthopnea and Denies paroxysmal nocturnal dyspnea Resp Denies cough, Denies hemoptysis, Denies excessive phlegm production, Denies dyspnea, Reports snoring and Reports wheezing GI Denies abdominal pain and Denies heartburn Musc Denies myalgias, Denies arthralgias and Denies joint swelling Skin/Breast Denies rash Neuro Denies memory loss and Denies seizure-like activity Psych Denies abnormal sleep pattern, Denies anxiety and Denies memory loss Endo Denies excessive sweating, Reports fatigue and Denies heat intolerance Ronal/Lymph Denies easy bruising Aller/Immun Denies itchy eyes, Denies seasonal rhinorrhea and Reports wheezing Physical Exam Vital Signs: Last Vital Signs Pulse 77 07/01/24 15:40 BP 94/60 07/01/24 15:40 Pulse Ox 98 07/01/24 15:40 Oxygen Delivery Method Room Air 07/01/24 15:40 Const General: no acute distress and alert Nutritional Appearance: obese Orientation/consciousness: Other orientation findings ( oriented) HEENT Head: Yes atraumatic Eyes General: appearance normal, both eyes and all related structures Sclerae: sclerae normal EOM: EOMs intact bilaterally Neck Neck: Yes supple Lymphatic: no lymphadenopathy noted Resp Effort & Inspection: normal respiratory effort and no use of accessory muscles Auscultation: clear to auscultation bilaterally Cardio Rate: regular rate Rhythm: regular rhythm Heart sounds: no gallops, no murmurs and no rubs Skin General skin exam: other ( warm) Extrem General: No clubbing, No cyanosis and Yes edema (1+ bilateral) Assessment & Plan Assessment & Plan (1) Moderate persistent asthma: Code(s): J45.40 - Moderate persistent asthma, uncomplicated Category: Medical Plan: At least moderate persistent. Suboptimally controlled on Advair and albuterol MDI. Will restart on Singulair and obtain full PFT. (2) Pulmonary nodules: Code(s): R91.8 - Other nonspecific abnormal finding of lung field Category: Medical Plan: Patient with prior history of pulmonary nodules. Will obtain CT chest for further evaluation. (3) DUSTIN (obstructive sleep apnea): Code(s): G47.33 - Obstructive sleep apnea (adult) (pediatric) Category: Medical Plan: Unrestful sleep, daytime sleepiness, snoring, [place] Sleepiness Scale score of 15. Will obtain home sleep study. (4) Dyspnea on exertion: Code(s): R06.09 - Other forms of dyspnea Category: Medical Plan: Orthopnea, dyspnea on exertion, and lower extremity edema, will obtain 2D echocardiogram. (5) Environmental allergies: Code(s): Z91.09 - Other allergy status, other than to drugs and biological substances Category: Medical Plan: Will start on nasal ipratropium and obtain RAST, CBC with differential, and IgE level for further evaluation. Orders: Orders Resp Allergy Profile Region I Today J45.40 - Moderate persistent asthma, uncomplicated RT home sleep study Today G47.33 - Obstructive sleep apnea (adult) (pediatric) CT chest wo IV con Today R91.8 - Other nonspecific abnormal finding of lung field PFT pulmonary function test Today J45.40 - Moderate persistent asthma, uncomplicated Complete Blood Count Auto Diff Today J45.40 - Moderate persistent asthma, uncomplicated CA echo transthorac w con Today R06.09 - Other forms of dyspnea Medications: New montelukast (Singulair) 10 mg PO QPM 30 tabs 6RF ipratropium bromide administer into each nostril 2 sprays intranasal TID-QID PRN 15 mL 3RF allergy symptoms Coding Level of Care Code New Pt Level 5 (21357) Diagnoses Moderate persistent asthma J45.40 Pulmonary nodules R91.8 DUSTIN (obstructive sleep apnea) G47.33 Dyspnea on exertion R06.09 Environmental allergies Z91.09
== END 2024-07-01 15:59 | disposition home or self-care (01) ==
PROVIDERS: PCP Internal Medicine; Visit Provider Internal Medicine Pulmonary Disease
DX: J45.40 Moderate persistent asthma, uncomplicated (principal); R91.8 Other nonspecific abnormal finding of lung field; G47.33 Obstructive sleep apnea (adult) (pediatric)
CPT/HCPCS: 99204

== ENCOUNTER 2024-07-08 15:10 | Outpatient (AMB) | payer MEDICAID, SELFPAY ==
--- NOTE | 2024-07-08 15:11 | MHC.OFFVIS ---
Intake Visit Reasons: OV-discuss right knee inj Intake Note: [place] is a 53 year old female who presents in the office today for a follow up of her bilateral knee degenerative arthritis. Patient is interested in receiving an injection today and or other treatment options. Network Support Technician Required: Yes Network Support Technician Language: Waiter/Waitress Cocktail Lounge Name: Demetri [id number] Allergies No Known Allergies Allergy (Verified 07/08/24 15:12) HPI HPI OV-discuss right knee inj: Details: Patient is a 53-year-old female presents for follow-up evaluation of right knee pain with associated osteoarthritis. The patient was referred to physical therapy at last visit, and she states that this helped her tremendously, and she does not feel she requires any other intervention at this time. No other acute complaints or concerns at this time. [facility] Medical History Diabetes mellitus Bilateral knee pain Cervical cancer Moderate persistent asthma Pulmonary nodules Low back pain Surgical History History of hysterectomy (~2018) Social History Household Members: Spouse and Children Household Members Other:: grand-daughters Alcohol intake: never Patient Tobacco Use Status: Never used Tobacco Current occupational status: unemployed Review of Systems Const All systems reviewed & are unremarkable except as noted in HPI and below Physical Exam Extrem Other: On inspection, there is no visible deformity of bilateral knee Mild edema of bilateral knees noted No erythema, ecchymosis noted No lacerations, abrasions, open areas No evidence of infection Patient reports improved tenderness to palpation of the medial and lateral joint lines, and the peripatellar and suprapatellar region of bilateral knees Patient reports no tenderness to palpation of the tibial tubercle, quad tendon, or posterior aspects of bilateral knees Patient is able to extend bilateral knees to 0 degrees and flex to approximately 120 degrees without difficulty No ligamentous laxity noted Distal sensation intact Capillary refill brisk Negative Kaylah's bilaterally Assessment & Plan Assessment & Plan (1) Degenerative arthritis of knee, bilateral: Code(s): M17.0 - Bilateral primary osteoarthritis of knee Category: Medical Plan 1. Bilateral knee osteoarthritis Patient reports that physical therapy was very helpful for her, and has reduced her pain and improve her functional capacity significantly Patient states she would not any further intervention at this time Patient is advised that she should continue with her physical therapy exercises even after discharge, as they have improved her functional capacity he significantly and may continue to do so Patient is advised that if she begins to experience discomfort or pain again, she can call our office for repeat evaluation and discussion of further treatment options at that time Patient understands this and is amenable to this plan Patient will follow-up as needed with any acute concerns Coding Level of Care Code Est Pt Level 3 (87427) Diagnoses Degenerative arthritis of knee, bilateral M17.0
== END 2024-07-08 15:23 | disposition home or self-care (01) ==
PROVIDERS: PCP Internal Medicine
DX: M17.0 Bilateral primary osteoarthritis of knee (principal)
CPT/HCPCS: 99213

== ENCOUNTER → 2024-07-08 15:10 | Outpatient (BNVA) | payer MEDICAID, SELFPAY | PROVIDERS: PCP Internal Medicine | DX: M17.0 Bilateral primary osteoarthritis of knee (principal) | CPT/HCPCS: 99212 ==

== ENCOUNTER 2024-07-16 14:00 | Outpatient (REF) | payer MEDICAID, SELFPAY ==
--- NOTE | 2024-07-16 13:30 | PFT_ITS ---
Flows: FEV1: 85 % of predicted at 2.17 L FVC: 86 % of predicted at 2.75 L FEV1/FVC: 79 % Bronchodilator response: Absent Volumes: Total lung capacity: 75 % of predicted at 3.76 L Residual volume: 65 % of predicted at 1.01 L Slow vital capacity: 79 % of predicted at 2.75 L Expiratory reserve volume: 59 % of predicted at 0.53 L Diffusion capacity: Normal Impression: Mild restrictive ventilatory defect with no bronchodilator response. MTDD
== END 2024-07-16 14:01 | disposition home or self-care (01) ==
LOC: HO.RESP 14:00
PROVIDERS: PCP Internal Medicine; Visit Provider Internal Medicine Pulmonary Disease
DX: J45.40 Moderate persistent asthma, uncomplicated (principal)

== ENCOUNTER 2024-08-01 17:00 | Outpatient (RCR) | payer MEDICAID, SELFPAY ==
--- NOTE | 2024-06-28 13:00 | MHC.PT.EP ---
[facility] [place] [facility] [place] [facility] [place] Office [address] [place] [address] [address] [phone] F: [phone] F: [phone] F: [phone] F: [phone] Physical Therapy Plan of Care Date of Evaluation: 06/28/24 Date of Surgery: NA Diagnosis: B KNEE OA Assessment: Pt IS 53 YO F REFERRED TO PT FROM [facility] ([facility]) WITH B KNEE PAIN. Pt PRESENTS WITH C/O CHRONIC KNEE PAIN (INSIDIOUS ONSET) AND R HIP/LBP (RECENTLY SEEN BY PAIN MANAGEMENT WITH SI INJECTION WITHOUT RELIEF). PRESENTS WITH LE WEAKNESS BUT WITH GOOD KNEE ROM. HAS HAD PT IN PAST (EXPLAINS MOSTLY EXERCISES) WITHOUT RELIEF, SO UNSURE IF SHE WILL FIND RELIEF THIS TIME, BUT WILL ADD IN SOME ST WORK/KT ALONT WITH LE STRETCH/STRENGTHEN AND CORE WORK Frequency and Duration: The patient will be seen 2X/WK X 6 WKS Short Term Goals: 1. INCREASED AWARENESS KNEE CARE 2. I KT IF INDICATED FOR PAIN RELIEF/KNEE SUPPORT Custodial Goals: 1. I HEP WITH DC EX PLAN 2. DECREASED KNEE PAIN AT LEAST 50% WITH ADLS Treatment Plan: Modalities to reduce pain, spasms and effusion. Manual therapy to restore motion and function. Therapeutic exercise to improve strength and flexibility. Neuromuscular re-education for posture and balance. Therapeutic activities to return to functional activities of daily living. Electronically signed by: CURT LEIGH PT Please sign and return to therapist. Thank you for your referral.
--- NOTE | 2024-09-13 11:17 | MHC.PT.DC ---
[facility] [place] Office [place] Office [place] Office [address] [phone] F: [phone] F: [phone] F: [phone] F: [phone] Physical Therapy Discharge Report Diagnosis: B KNEE OA Date of Surgery: NA Date of Evaluation: 06/28/24 Date of Discharge: 09/13/24 Treatments to Date: 4 Cancellations to Date: No Shows to Date: Discharge Status: Patient Elected to Stop Discharge Summary: PER ASSESSMENT FROM LAST SESSION BY NAHUM CYR PT,DPT pt severely limited by R hip pain. Focused on more hip stretches w/ which pt reported strong stretch sensations. Updated HEP to include new ex's. Reassess hip pain next visit. NO FURTHER APPTS SCHEDULED (?) Electronically signed by: CURT LEIGH PT Please sign and return to therapist. Thank you for your referral.
== END 2024-09-13 11:18 | disposition home or self-care (01) ==
LOC: HO.PT 17:00
PROVIDERS: PCP Internal Medicine
DX: M17.0 Bilateral primary osteoarthritis of knee (principal)
CPT/HCPCS: 97110; 97140; 97161

== ENCOUNTER 2024-08-05 15:15 | Outpatient (REF) | payer MEDICAID, SELFPAY | END 2024-08-05 15:16 | disposition home or self-care (01) | LOC: HO.CT 15:15 | PROVIDERS: PCP Internal Medicine; Visit Provider Internal Medicine Pulmonary Disease | DX: R91.8 Other nonspecific abnormal finding of lung field (principal) | CPT/HCPCS: 71250 ==

== ENCOUNTER → 2024-08-05 15:16 | Outpatient (BNV) | payer MEDICAID, SELFPAY | PROVIDERS: PCP Internal Medicine; Visit Provider Radiology Diagnostic Radiology | DX: R91.1 Solitary pulmonary nodule (principal); K76.0 Fatty (change of) liver, not elsewhere classified | CPT/HCPCS: 71250 ==

== ENCOUNTER → 2024-08-11 15:44 | Outpatient (REF) | payer MEDICAID, SELFPAY | LOC: HO.SL 15:44 | PROVIDERS: PCP Internal Medicine; Visit Provider Internal Medicine Pulmonary Disease | DX: G47.33 Obstructive sleep apnea (adult) (pediatric) (principal) | CPT/HCPCS: 95806 ==

== ENCOUNTER → 2024-08-11 15:59 | Outpatient (BNV) | payer MEDICAID, SELFPAY | PROVIDERS: PCP Internal Medicine; Visit Provider Internal Medicine | DX: R06.83 Snoring (principal); G47.10 Hypersomnia, unspecified | CPT/HCPCS: 95806 ==

== ENCOUNTER 2024-09-01 15:09 | Outpatient (AMB) | payer MEDICAID, SELFPAY ==
--- NOTE | 2024-09-01 15:18 | A.OFFVIS_ITS ---
Vital Signs 09/01/24 15:26 Height 5 ft 3 in Weight 198 lb BMI 35.1 BP 129/58 L Blood Pressure Location Lt brachial Position Sitting Pulse 82 Pulse Source Pulse Oximeter Pulse Oximetry (%) 97 Oxygen Delivery Method Room Air Intake Visit Reasons: MRI FOLLOW UP Intake Note: Pain today 04/30 Contract Serviceman Required: Yes Contract Serviceman Language: Itinerant Teacher Assistant Services: Contract Serviceman Present Contract Serviceman Name: [place] #[id number] Accompanied by: Self / Same As Patient Allergies No Known Allergies Allergy (Verified 09/01/24 15:27) HPI Comments Details: Patient presents today to discuss lumbar spine MRI results. patient access was utilized during this encounter. Patient continues to endorse low back going down into lateral hip and lateral lower leg with associated numbness and tingling and intermittent heaviness in thigh and lower leg. Pain is present with any activity, especially with walking or prolonged standing, bending or prolonged sitting. Denies any fever or chills, weakness, bladder or bowel dysfunction or saddle anesthesia. Past Procedure: 06/23/24: Right diagnostic sacroiliac joint injection: no significant relief PRIOR: Patient is a 53-year-old Nigerian-speaking female with history of chronic low back pain, arthritis, knee pain, diabetes (A1C=7.3), cervical CA s/p hysterectomy (2018), pulmonary nodules, presenting today for initial evaluation for right-sided low back. Denies any recent trauma, injury or falls. She moved from [place] about a year ago and is in the process of establishing care with multiple providers. Patient is being evaluated by our Orthopedic providers tomorrow for knee pain. She completed 9 sessions of physical therapy in [place] without significant benefit. Back pain is axial and primarily localized to the right side of lower back and right sacral area with radiation into her right buttock and occasionally into her right lower extremity. Pain is most severe with prolonged sitting or st anding. She denies any radiation of pain below knee level. Reports occasional tingling and burning in bilateral lower extremities posteriorly and in her feet. Denies previous spine surgery or injections. Pain affects her daily activities and functioning, mobility, sleep and social interactions. She has been managing her symptoms with cyclobenzaprine and meloxicam. Patient reports she tries to avoid muscle relaxants due to significant drowsiness and is open to trial and other muscle relaxants. Most recent lumbar x-ray was unremarkable. Denies any fever or chills, abdominal or flank pain, weakness, footdrop, bladder or bowel dysfunction or saddle anesthesia. Location: Lower back pain, right side Duration: Chronic pain >1 year Characteristics of symptom or complaint: Throbbing, pinching, sore, aching, spreading, stabbing, heavy Aggravating or associated factors: Movements, standing, prolonged sitting, climbing stairs, cold weather Relieving factors: Rest, laying down, Ibuprofen, meloxicam, cyclobenzaprine, heat Treatment: PT in 2022 in [place]- total 9 sessions-no improvement [facility] Medical History Diabetes mellitus Bilateral knee pain Cervical cancer Moderate persistent asthma Pulmonary nodules Low back pain Surgical History History of hysterectomy (~2017) Social History Household Members: Spouse and Children Household Members Other:: grand-daughters Alcohol intake: never Patient Tobacco Use Status: Never used Tobacco Current occupational status: unemployed Review of Systems Const All systems reviewed & are unremarkable except as noted in HPI and below Physical Exam General: Appears afebrile. Alert and oriented. Mood and affect appropriate. Follows and participates in conversation appropriately. Respiratory effort is unlabored. No cough. Able to transition from sit to stand unassisted. Ambulates with bilaterally normal heel strike and toe off, reports pain increase on the right with toe and heel standing. General: Yes no CVA tenderness Back/Spine/Pelvis Other: Limited lumbar ROM due to pain. Moderately antalgic gait with mild limping due to pain. Lumbar flexion forward in bending reproduces moderate symptoms, lumbar extension reproduces mild to moderate pain. Demonstrates 5/5 left and 4/5 right strength of quadriceps bilaterally as well as flexion/dorsiflexion of bilateral feet against resistance. 2+ pedal pulses bilaterally. Straight leg rise with dorsiflexion positive on the right. +1 patellar and +1 achilles reflexes bilaterally. Facet loading test positive bilaterally. Marina sign, Darryn?s, Pelvic compression and Stinchfield tests are positive on the right. No groin pain with I/E hip rotations. Mild TTP to right GTB. Back: no CVA tenderness Cervical Spine: cervical ROM normal, cervical muscular tenderness and No Cervical spine tenderness Thoracic/Lumbar Spine: thoracic and lumbar spine normal to inspection, No Thoracic/lumbar spine scar(s), Lasegue's sign positive on the right and localized, pain with thoraco-lumbar ROM, paraspinal muscle tenderness, thoraco- lumbar ROM limited, No thoracic spinal tenderness, No lumbar spinal tenderness and straight leg raise positive right at 50 degrees Pelvis: buttock tenderness on the right and no sciatic notch tenderness Sacroiliac joints: on the right tender to palpation and on the left nontender Results Reviewed Results Reviewed: MR SPINE LUMBAR without CONTRAST 07/02/24 INDICATION: Lower back and hips pain for over 1 years. TECHNIQUE: Unenhanced multiplanar, multisequence MR imaging of the lumbar spine. COMPARISON: None Available. FINDINGS: Normal lumbar alignment is demonstrated. Vertebral heights are maintained. Bone marrow signal is within normal limits, and no suspicious osseous lesion is identified. No intrathecal lesions are seen. The conus is at L1-2. The intervertebral disc space heights and signal are maintained. Paraspinal soft tissues are unremarkable. At L1-2 through L3-4 there is no significant disc herniation or protrusion. No central canal or neural foraminal stenosis is demonstrated. The facets are normal. At L4-5 there is moderate hypertrophy the facets and ligamentum flavum. Minimal symmetric annular bulging is seen. These changes are creating spinal stenosis at this level. The inferior aspects the neural foramina are encroached upon. At L5-S1 there is no significant disc herniation or protrusion. No central canal or neural foraminal stenosis is demonstrated. Mild hypertrophy the facets are seen. IMPRESSION: Spinal stenosis at L4-5. Osteoarthritis at L4-5 and L5-S1. Assessment & Plan Assessment & Plan (1) Low back pain: Code(s): M54.50 - Low back pain, unspecified Category: Medical (2) Chronic right SI joint pain: Code(s): M53.3 - Sacrococcygeal disorders, not elsewhere classified; G89.29 - Other chronic pain Category: Medical (3) Muscle spasm of back: Code(s): M62.830 - Muscle spasm of back Category: Medical (4) Lumbar spinal stenosis: Code(s): M48.061 - Spinal stenosis, lumbar region without neurogenic claudication Category: Medical (5) Lumbar radiculopathy: Code(s): M54.16 - Radiculopathy, lumbar region Category: Medical Plan Discussed lumbar spine MRI results and interventional treatments for radicular and axial low back pain. Schedule right L4-L5 TFESI with local and fluoroscopy. Expectations, risks and benefits were reviewed. Patient is aware she will be contacted to schedule this procedure. Patient is aware of hyperglycemic effects of steroids. Recent A1C=7.3. Continue daily physical activity, home exercise program, adequate hydration, weight loss and good posture. All questions and concerns have been answered and patient agreed with the treatment plan. Follow-up after injection and sooner as needed. Coding Level of Care Code Est Pt Level 4 (43836) Complex EM visit Add On G2211 Diagnoses Low back pain M54.50 Chronic right SI joint pain M53.3; G89.29 Muscle spasm of back M62.830 Lumbar spinal stenosis M48.061 Lumbar radiculopathy M54.16
[2024-09-01 15:26] VITALS: BP 129/58; PULSE 82; O2SAT 97; BMI 35.1
== END 2024-09-01 15:41 | disposition home or self-care (01) ==
PROVIDERS: PCP Internal Medicine; Visit Provider Nurse Practitioner Family
DX: M54.50 Low back pain, unspecified (principal); M53.3 Sacrococcygeal disorders, not elsewhere classified; G89.29 Other chronic pain; M62.830 Muscle spasm of back; M48.061 Spinal stenosis, lumbar region without neurogenic claudication; M54.16 Radiculopathy, lumbar region
CPT/HCPCS: 99214

== ENCOUNTER → 2024-09-01 15:09 | Outpatient (BNVA) | payer MEDICAID, SELFPAY | PROVIDERS: PCP Internal Medicine; Visit Provider Nurse Practitioner Family | DX: M54.50 Low back pain, unspecified (principal); M53.3 Sacrococcygeal disorders, not elsewhere classified; M62.830 Muscle spasm of back; M48.061 Spinal stenosis, lumbar region without neurogenic claudication; M54.16 Radiculopathy, lumbar region; G89.29 Other chronic pain | CPT/HCPCS: 99212 ==

== ENCOUNTER 2024-09-09 15:09 | Outpatient (AMB) | payer MEDICAID, SELFPAY ==
[2024-09-09 15:13] VITALS: BP 119/64; PULSE 87; O2SAT 97; BMI 35.1
--- NOTE | 2024-09-09 15:13 | A.OFFVIS_ITS ---
Vital Signs 09/09/24 15:13 Height 5 ft 3 in Weight 198 lb BMI 35.1 BP 119/64 Blood Pressure Location Rt brachial Position Sitting Pulse 87 Pulse Source Doppler Pulse Oximetry (%) 97 Oxygen Delivery Method Room Air Intake Visit Reasons: Asthma/PFT,Echo,Sleep Study Follow Up Apartment Maintenance Supervisor Required: Yes Apartment Maintenance Supervisor Name: Monae Richard Lesa Allergies No Known Allergies Allergy (Verified 09/01/24 15:27) HPI HPI Asthma/PFT,Echo,Sleep Study Follow Up: Details: 53-year-old lady, nonsmoker, with underlying history of asthma since childhood, environmental allergies, and pulmonary nodules, previously seen by pulmonology in [place] presents here after moving to [facility]. Patient states that she has been using Advair and albuterol MDI with suboptimal control of her asthma symptoms. Patient also complains of significant environmental allergies. Patient states that she used to use Singulair with some improvement in her symptom control. Patient also complains of orthopnea and dyspnea on exertion, unrestful for sleep, and daytime sleepiness. Patient states that there is family history of lung disease, though she is not sure of what kind. After the last office visit patient has completed her pulmonary function tests, CT chest, sleep study, immunologic workup, however her 2D echocardiogram is still pending. She denies any recent exacerbations. [facility] Medical History Diabetes mellitus Bilateral knee pain Cervical cancer Moderate persistent asthma Pulmonary nodules Low back pain Surgical History History of hysterectomy (~2018) Social History Household Members: Spouse and Children Household Members Other:: grand-daughters Alcohol intake: never Patient Tobacco Use Status: Never used Tobacco Current occupational status: unemployed Review of Systems Const Denies daytime sleepiness, Denies excessive sweating, Denies fatigue, Denies fever(s), Denies lethargy, Denies malaise, Denies night sweats, Denies snoring and Denies weight loss Eyes Denies blurry vision and Denies itchy eyes ENT Denies nasal congestion, Denies post nasal drip, Denies sinus pain, Denies sinus pressure and Denies other ( Thrush) Card Denies chest pain, Denies pedal edema, Denies dyspnea, Denies orthopnea and Denies paroxysmal nocturnal dyspnea Resp Denies cough, Denies hemoptysis, Denies excessive phlegm production, Denies dyspnea, Denies snoring and Denies wheezing GI Denies abdominal pain and Denies heartburn Musc Denies myalgias, Denies arthralgias and Denies joint swelling Skin/Breast Denies rash Neuro Denies memory loss and Denies seizure-like activity Psych Denies abnormal sleep pattern, Denies anxiety and Denies memory loss Endo Denies excessive sweating, Denies fatigue and Denies heat intolerance Ronal/Lymph Denies easy bruising Aller/Immun Denies itchy eyes, Denies seasonal rhinorrhea and Denies wheezing Physical Exam Vital Signs: Last Vital Signs Pulse 87 09/09/24 15:13 BP 119/64 09/09/24 15:13 Pulse Ox 97 09/09/24 15:13 Oxygen Delivery Method Room Air 09/09/24 15:13 BMI result Body Mass Index 35.1 Const General: no acute distress and alert Nutritional Appearance: obese Orientation/consciousness: Other orientation findings ( oriented) HEENT Head: Yes atraumatic Eyes General: appearance normal, both eyes and all related structures Sclerae: sclerae normal EOM: EOMs intact bilaterally Neck Neck: Yes supple Lymphatic: no lymphadenopathy noted Resp Effort & Inspection: normal respiratory effort and no use of accessory muscles Auscultation: clear to auscultation bilaterally Cardio Rate: regular rate Rhythm: regular rhythm Heart sounds: no gallops, no murmurs and no rubs Skin General skin exam: other ( warm) Extrem General: No clubbing, No cyanosis and No edema Assessment & Plan Assessment & Plan (1) Moderate persistent asthma: Code(s): J45.40 - Moderate persistent asthma, uncomplicated Category: Medical Plan: Results of pulmonary function test reviewed. Now well controlled on Advair and albuterol MDI. Continue current regimen. (2) Pulmonary nodules: Code(s): R91.8 - Other nonspecific abnormal finding of lung field Category: Medical Plan: Results of CT chest not available for this visit, on my review 5 mm right lower lobe posterior nodule, will repeat CT chest in 6 months. (3) Dyspnea on exertion: Code(s): R06.09 - Other forms of dyspnea Category: Medical Plan: 2D echocardiogram is pending. Orders: Orders CT chest wo IV con 02/07/25 R91.8 - Other nonspecific abnormal finding of lung field Medications: New fluticasone propion-salmeterol 250-50 mcg/dose (Advair Diskus) 1 ea inhalation BID 60 ea 6RF R91.8 - Other nonspecific abnormal finding of lung field Refilled albuterol sulfate 90 mcg/actuation 2 puffs inhalation Q4-6H PRN 6.7 grams 6RF shortness of breath or wheezing R91.8 - Other nonspecific abnormal finding of lung field Coding Level of Care Code Est Pt Level 4 (23860) Complex EM visit Add On G2211 Diagnoses Moderate persistent asthma J45.40 Pulmonary nodules R91.8 Dyspnea on exertion R06.09
== END 2024-09-09 15:29 | disposition home or self-care (01) ==
PROVIDERS: PCP Internal Medicine; Visit Provider Internal Medicine Pulmonary Disease
DX: J45.40 Moderate persistent asthma, uncomplicated (principal); R91.8 Other nonspecific abnormal finding of lung field; R06.09 Other forms of dyspnea
CPT/HCPCS: 99214

== ENCOUNTER → 2024-09-09 15:09 | Outpatient (BNVA) | payer MEDICAID, SELFPAY | PROVIDERS: PCP Internal Medicine; Visit Provider Internal Medicine Pulmonary Disease | DX: J45.40 Moderate persistent asthma, uncomplicated (principal); R91.8 Other nonspecific abnormal finding of lung field; R06.09 Other forms of dyspnea | CPT/HCPCS: 99212 ==

== ENCOUNTER 2024-10-06 09:04 | Outpatient (REF) | payer MEDICAID, SELFPAY ==
--- NOTE | ~2024-10-06 | FL_ITS ---
EXAMINATION: FL GUIDANCE ONLY HISTORY: M54.16 - Radiculopathy, lumbar region COMPARISON: None available. TECHNIQUE: Fluoroscopy time: 0.2 minutes. Cumulative Dose: 7.79 mGy. DAP: 0.0669 uGy-m2 (microgray-meter squared). Images: 4. FINDINGS: Images demonstrate a probe directed toward a lower lumbar vertebral body from a posterior approach. FL/FL guidance in treatment room IMPRESSION: Fluoroscopy during procedure. Please see procedure report for additional information. Electronically signed by: Chirag Basurto MD 10/10/2024 03:08 PM [facility]
== END 2024-10-06 09:05 | disposition home or self-care (01) ==
LOC: CF 09:04
PROVIDERS: PCP Internal Medicine; Visit Provider Internal Medicine
DX: M54.16 Radiculopathy, lumbar region (principal)
CPT/HCPCS: 64483; J1100; J2003; Q9967

== ENCOUNTER 2024-10-06 12:59 | Outpatient (AMB) | payer MEDICAID, SELFPAY ==
[2024-10-06 13:22] VITALS: BP 121/71; PULSE 72; O2SAT 99
--- NOTE | 2024-10-06 13:22 | MHC.OFFVIS ---
Vital Signs 10/06/24 13:22 10/06/24 13:48 BP 121/71 148/72 H Blood Pressure Location Lt brachial Lt brachial Position Sitting Sitting Pulse 72 76 Pulse Source Pulse Oximeter Pulse Oximeter Pulse Oximetry (%) 99 100 Oxygen Delivery Method Room Air Room Air Intake Visit Reasons: Right L4-L5 TFESI/ ativan Allergies No Known Allergies Allergy (Verified 09/01/24 15:27) HPI HPI Right L4-L5 TFESI/ ativan: Details: Patient presents for scheduled procedure. Denies any recent cough, cold, infection, fever or other significant changes in medical history since last office visit. [facility] Medical History (Updated 09/09/24 @ 15:26 by Rm Rosa MD) Diabetes mellitus Bilateral knee pain Cervical cancer Moderate persistent asthma Pulmonary nodules Low back pain Surgical History History of hysterectomy (~2017) Social History Household Members: Spouse and Children Household Members Other:: grand-daughters Alcohol intake: never Patient Tobacco Use Status: Never used Tobacco Current occupational status: unemployed Physical Exam Vital Signs: Last Vital Signs Pulse 76 10/06/24 13:48 BP 148/72 H 10/06/24 13:48 Pulse Ox 100 10/06/24 13:48 Oxygen Delivery Method Room Air 10/06/24 13:48 Office Procedures Details: Transforaminal epidural steroid injection, Right L4/5 After obtaining written consent, pre-procedure blood pressure and heart rate were stable and recorded in the nursing record. The patient was placed in the prone position on the fluoroscopy table. The lumbosacral area was prepped with chloraprep, allowed to dry and draped in sterile fashion. Using fluoroscopy, the skin overlying our target was anesthetized with 0.5% lidocaine. A 22 gauge 3.5 inch spinal needle was advanced to the safe triangle in the upper pole of the right L4/5 foramen. No paresthesias were elicited with needle placement and aspiration was negative for blood and CSF. Correct needle position was confirmed with approximately 1 ml contrast dye (Omnipaque 180 mg/ml) injected under real-time fluoroscopy. No evidence of vascular or intrathecal uptake was seen and there was both epidural and peripheral spread of the contrast agent. 10 mg dexamethasone plus 1 ml containing 0.5% lidocaine was slowly injected. The needle was flushed and removed. The skin was cleansed and a sterile bandages were applied. The patient tolerated the procedure well and no complications were encountered. Following the procedure the patient's vital signs were stable. The patient was discharged home in good condition with post-procedural instructions. Time Out: Immediately prior to the procedure, the following was verbally confirmed that there is a signed consent form and that the correct patient, planned procedure, site and side are consistent with documentation and that necessary equipment and/or blood products are available prior to the start of the case. Complications: none EBL: <5 cc 10500 - Lumbar/Sacral Procedure code (CPT) selection complete Assessment & Plan Assessment & Plan (1) Lumbar radiculopathy: Code(s): M54.16 - Radiculopathy, lumbar region Category: Medical Plan Patient is status post right L4/5 TFESI. Patient tolerated procedure well and was discharged home in stable condition with discharge instructions. All questions were answered. We will follow-up via telephone or in clinic to assess response to therapy. A follow-up appointment was made during today's visit. Orders: Orders FL guidance in treatment room 10/06/24 M54.16 - Radiculopathy, lumbar region Medications: New lorazepam (Ativan) Take 30 minutes prior to arrival to procedure 1 mg PO ONCE 1 tab 0RF anxiety Coding Level of Care Code Procedure Only Diagnoses Lumbar radiculopathy M54.16 CPT Codes Transforaminal Epidural Steroid Inj - TESI 3: 77733 - Lumbar/Sacral ([id number])
[2024-10-06 13:48] VITALS: BP 148/72; PULSE 76; O2SAT 100
== END 2024-10-06 13:48 | disposition home or self-care (01) ==
LOC: HO.PMCPRC 12:59
PROVIDERS: PCP Internal Medicine; Visit Provider Internal Medicine
DX: M54.16 Radiculopathy, lumbar region (principal)
CPT/HCPCS: 64483

== ENCOUNTER 2024-12-21 08:49 | Outpatient (AMB) | payer MEDICAID, SELFPAY ==
[2024-12-21 08:57] VITALS: BP 128/77; PULSE 75; BMI 35.1
--- NOTE | 2024-12-21 08:57 | A.OFFVIS_ITS ---
Vital Signs 12/21/24 08:57 Height 5 ft 3 in Weight 198 lb 6.656 oz BMI 35.1 BP 128/77 Blood Pressure Location Lt brachial Position Sitting Pulse 75 Intake Visit Reasons: Consult reflux Intake Note: Patient in office today as a new patient for acid reflux. CC: Patient c/o heartburn, acid reflux, stomach pain, abdominal bloating, and feeling full all the time. She also c/o nausea every day, constipation, having about 2 BMs per week, and seeing blood in stool sometimes. Per patient she had an EGD and colonoscopy done about 3 years ago in [place], and was found to have gastritis, and ulcers. Per patient she also has difficulty swallowing and she states that she feels sometimes when she swallows like there is something rotten in her throat. Rental Counter Clerk Required: Yes Rental Counter Clerk Language: Martiniquais Accompanied by: Spouse Allergies No Known Allergies Allergy (Verified 12/21/24 09:04) HPI HPI Consult reflux: Details: 54-year-old female here for initial evaluation of GERD although there is some question as to whether she is actually here for screening colonoscopy.. She is referred by [facility]. PMX Asthma Chronic low back pain Hypertension High cholesterol GERD Diabetes History of tubular adenoma History of cervical cancer * SURGICAL HISTORY Hysterectomy EGD/Colonoscopy-in [place]? Date C section * ALLERGIES: NKDA * [facility] LABS: None since 06/2024 TODAY'S VISIT Martiniqu[place] [facility] She is here for both colonoscopy screening and for evaluation of GERD. She says that everything gives he stomach aches and HB. It will come all the way up to her mouth with burning. She has to sleep sitting up and on the left side. This has been a problem for 3 years. SHe is on both pantoprazole qam and famotidine qhs and an OTC digestive enzyme. There is no particular time of day that she has breakthrough. She has constant bloating and early satiety. She can not ID any preceeding event to the onset of sx. She does not know her FHX. She also suffers CIC with very hard stools and straining. She is taking Miralax now w/o good effect. She has also failed senna, fiber, colace and has at times had to take up to 5 bisacodyl a day to get a BM. This has been a lifelong challenge. She has had a prior EGD/colonoscopy 3 years ago and she was told that she had reflux, gastritis and ulcers. She says she had polyps and she was told she needed a 1 year repeat but she does not know for sure why. She has the report at home. Her mother of CRC at age 86. she also has associated dysphagia in the area of the voicebox of both solids and liquids but nore often with solids and a globus sensation. She has never had a barium swallow. Start Linzess 145mcg, change to lansoprazole 30mg bid if insurance, EGD/colonoscopy, barium swallow, GES. Her asthma is well controlled. No ID problems. NO anes or sed problems. ROV next available [facility] Medical History Low back pain Muscle spasm of back Bilateral knee pain Diabetes mellitus Cervical cancer Moderate persistent asthma Pulmonary nodules Surgical History History of esophagogastroduodenoscopy (EGD) H/O colonoscopy History of hysterectomy (~2018) Family History Brother Colon polyp Maternal Grandmother Colon cancer Mother Ovarian cancer Social History Household Members: Spouse and Children Household Members Other:: grand-daughters Alcohol intake: never Patient Tobacco Use Status: Never used Tobacco Use of substances other than those prescribed or required for medical reasons: No Current occupational status: unemployed Review of Systems Const Denies fatigue, Denies fever(s), Denies night sweats, Denies poor appetite, Reports weight gain and Denies weight loss ENT Reports Normal hearing present, Denies dental pain, Reports dysphagia, Denies hearing loss, Denies mouth pain, Denies odynophagia, Denies throat swelling, Denies tongue swelling and Reports other (Dentition adequate) Card Reports no additional complaints Resp Reports no additional complaints GI Details: Denies abdominal pain, Denies melena, Reports bloating, Denies hematochezia, Reports constipation, Denies GI cramping, Reports dysphagia, Denies excessive flatus, Denies early satiety, Reports heartburn, Denies diarrhea, Denies nausea, Denies odynophagia, Denies vomiting and Denies hematemesis Skin/Breast Denies pruritus, Denies lesions, Denies rash and Denies jaundice Neuro Reports Normal hearing present and Denies Abnormal speech present Endo Denies fatigue Aller/Immun Denies throat swelling and Denies tongue swelling Physical Exam Vital Signs: Last Vital Signs Pulse 75 12/21/24 08:57 BP 128/77 12/21/24 08:57 BMI result Body Mass Index 35.1 Const General: cooperative, no acute distress, well developed and well groomed Nutritional Appearance: well nourished and obese centrally obese Orientation/consciousness: oriented to person, oriented to place and oriented to time Limitations: language barrier HEENT Head: Yes normocephalic and Yes atraumatic Eyes General: appearance normal, both eyes and all related structures Pupils: Equal, round and reactive pupils present Neck Neck: Yes normal visual inspection and Yes no lymphadenopathy Thyroid: Thyroid normal Resp Effort & Inspection: normal respiratory effort and able to speak in complete sentences Auscultation: clear to auscultation bilaterally Cardio Rate: regular rate Rhythm: regular rhythm Heart sounds: Normal, physiologic split S2 sound present Peripheral pulses: radial pulses present and posterior tibial pulses present GI Inspection: No distended, Yes Abdominal panniculus present and Yes obesity Palpation (GI): Soft to palpation, nontender, no guarding, not rigid and No hepatosplenomegaly present Percussion: Yes normal to percussion Auscultation: normal bowel sounds Rectal Exam - Female: deferred Skin General skin exam: no rashes or lesions noted, turgor normal, skin not dry, no jaundice, No spider nevi and no striae Rashes: no rashes Nails: normal Neuro General: oriented to person, oriented to place and oriented to time Cranial nerves: Yes Equal, round and reactive pupils present and Yes Normal hearing present Speech: No Abnormal speech present Extrem General: Yes normal to inspection, No clubbing, No cyanosis and No edema Psych Appearance: grossly normal and well kempt Mental Status: mental status grossly normal Speech and movement: Normal speech and movement present Affect: normal affect Attitude: cooperative Thought process: Normal thought process present and not confabulating Thought content: Normal thought content present Insight: Fair insight present (Psych) Judgement: Fair judgement present (Psych) Assessment & Plan Assessment & Plan (1) Diabetes mellitus: Code(s): E11.9 - Type 2 diabetes mellitus without complications Category: Medical (2) Tubular adenoma of colon: Code(s): D12.6 - Benign neoplasm of colon, unspecified Category: Medical (3) GERD (gastroesophageal reflux disease): Code(s): K21.9 - Gastro-esophageal reflux disease without esophagitis Category: Medical (4) Family history of colon cancer in mother: Comment: mother age 87 Code(s): Z80.0 - Family history of malignant neoplasm of digestive organs Category: Medical (5) Early satiety: Code(s): R68.81 - Early satiety Category: Medical (6) Erosive esophagitis: Code(s): K22.10 - Ulcer of esophagus without bleeding Category: Medical (7) Dysphagia: Code(s): R13.10 - Dysphagia, unspecified Category: Medical Plan [place] [facility] [employer] She is here for both colonoscopy screening and for evaluation of GERD. She says that everything gives he stomach aches and HB. It will come all the way up to her mouth with burning. She has to sleep sitting up and on the left side. This has been a problem for 3 years. SHe is on both pantoprazole qam and famotidine qhs and an OTC digestive enzyme. There is no particular time of day that she has breakthrough. She has constant bloating and early satiety. She can not ID any preceeding event to the onset of sx. She does not know her FHX. She also suffers CIC with very hard stools and straining. She is taking Miralax now w/o good effect. She has also failed senna, fiber, colace and has at times had to take up to 5 bisacodyl a day to get a BM. This has been a lifelong challenge. She has had a prior EGD/colonoscopy 3 years ago and she was told that she had reflux, gastritis and ulcers. She says she had polyps and she was told she needed a 1 year repeat but she does not know for sure why. She has the report at home. Her mother of CRC at age 86. she also has associated dysphagia in the area of the voicebox of both solids and liquids but nore often with solids and a globus sensation. She has never had a barium swallow. Start Linzess 145mcg, change to lansoprazole 30mg bid if insurance, EGD/colonoscopy, barium swallow, GES. Her asthma is well controlled. No ID problems. NO anes or sed problems. ROV next available Orders: Orders Comprehensive Met. Panel Today D12.6 - Benign neoplasm of colon, unspecified, E11.9 - Type 2 diabetes mellitus without complications, K21.9 - Gastro- esophageal reflux disease without esophagitis, R68.81 - Early satiety, Z80.0 - Family history of malignant neoplasm of digestive organs Complete Blood Count Auto Diff Today D12.6 - Benign neoplasm of colon, unspecified, E11.9 - Type 2 diabetes mellitus without complications, K21.9 - G marc-esophageal reflux disease without esophagitis, R68.81 - Early satiety, Z80.0 - Family history of malignant neoplasm of digestive organs EGD/[place] Combo - GI Use Only Today D12.6 - Benign neoplasm of colon, unspecified, E11.9 - Type 2 diabetes mellitus without complications, K21.9 - Gastro-esophageal reflux disease without esophagitis, R68.81 - Early satiety, Z80.0 - Family history of malignant neoplasm of digestive organs NM gastric emptying study Today D12.6 - Benign neoplasm of colon, unspecified, E11.9 - Type 2 diabetes mellitus without complications, K21.9 - Gastro- esophageal reflux disease without esophagitis, R68.81 - Early satiety, Z80.0 - Family history of malignant neoplasm of digestive organs [place] barium swallow Today D12.6 - Benign neoplasm of colon, unspecified, E11.9 - Type 2 diabetes mellitus without complications, K21.9 - Gastro-esophageal reflux disease without esophagitis, R68.81 - Early satiety, Z80.0 - Family history of malignant neoplasm of digestive organs Medications: New lansoprazole 30 mg PO BID 60 caps 6RF K22.10 - Ulcer of esophagus without bleeding, R13.10 - Dysphagia, unspecified peg 3350-electrolytes 236-22.74-6.74 -5.86 gram (Golytely) until fecal effluent is clear; do not exceed a total volume of 2,000 mL 240 mL PO Q10M 1 day 4,000 mL 0RF Z12.11 - Encounter for screening for malignant neoplasm of colon bisacodyl (Dulcolax (bisacodyl)) 10 mg (2 x 5 mg) PO BEDTIME 2 days 4 tabs 0RF linaclotide (Linzess) Take first thing in the morning with a full glass of water. 145 mcg PO QAM 30 caps 3RF K58.1 - Irritable bowel syndrome with constipation Coding Level of Care Code New Pt Level 3 (31793) Diagnoses Diabetes mellitus E11.9 Tubular adenoma of colon D12.6 GERD (gastroesophageal reflux disease) K21.9 Family history of colon cancer in mother Z80.0 Early satiety R68.81 Erosive esophagitis K22.10 Dysphagia R13.10
--- OUTSIDE RECORDS SUMMARY | 2024-12-21 09:28 | XMS_ITS | Clinical Summary ---
Author Organization [employer] Address [address] [facility] [address] [place] [address] Care Team Providers Care Wildlife Manager Name Role Phone Saima Villanueva MD Primary Care Provide r Allergies No known active allergies Medications * This document contains information received from the source organization and may not represent a complete record from that organization. albuterol (2.5 MG/3ML) 0.083% nebulizer solution Take 3 mL (2.5 mg) by nebulization every 6 (six) hours if needed for wheezing. 75 mL 1 11/12/19 24 Active Advair Diskus 250-50 MCG/ACT aerosol powder INHALE 1 INHALATION AT NOON AND 1 INHALATION IN THE EVENING. 60 each 2 11/13/19 24 Active meloxicam (Mobic) 15 MG tablet Take 1 tablet (15 mg) by mouth Once per day. 30 tablet 11 04/26/20 24 025 Active cyclobenzaprine (Flexeril) 10 MG tabletIndication s:Chronic bilateral low back pain with bilateral sciatica Take 1 tablet (10 mg) by mouth 3 times daily for 10 days. 30 tablet 05/12/20 24 Active pantoprazole (Protonix) 40 MG EC tabletIndication s:Gastroesophage al reflux disease, unspecified whether esophagitis present Take 1 tablet (40 mg) by mouth before breakfast. Do not crush, chew, or split. 30 tablet 11 09/22/19 25 026 Active empagliflozin (Jardiance) 10 MGIndications:Ty pe 2 diabetes mellitus without complication, without long-term current use of insulin ([facility]) Take 1 tablet (10 mg) by mouth Once per day. 30 tablet 11 09/22/19 25 026 Active FREESTYLE LITE test stripIndications :Type 2 diabetes mellitus without complication, without long-term current use of insulin ([facility]) Use to test blood sugar 1 times daily 100 each 09/22/19 25 Active Lancets miscIndications: Type 2 diabetes mellitus without complication, without long-term current use of insulin ([facility]) Use to test blood sugar 1 times daily 100 each 09/22/19 Active Alcohol Swabs 70 % padsIndications: Type 2 diabetes mellitus without complication, without long-term current use of insulin ([facility]) Use to test blood sugar 1 times daily 100 each 09/22/19 25 Active Blood Glucose Monitoring Suppl (FreeStyle [place] Lite) w/Device kitIndications:T ype 2 diabetes mellitus without complication, without long-term current use of insulin ([facility]) Use to test blood sugar 1 times daily 1 kit 09/22/19 Active albuterol 108 (90 Base) MCG/ACT inhalerIndicatio ns:Moderate persistent asthma, unspecified whether complicated Inhale 2 puffs every 6 (six) hours if needed for wheezing. 18 g 2 09/22/19 25 Active atorvastatin (Lipitor) 40 MG tabletIndication s:Primary hypertension Take 1 tablet (40 mg) by mouth Once per day. 90 tablet 09/22/19 25 Active lisinopril 10 MG tabletIndication s:Primary hypertension Take 1 tablet (10 mg) by mouth Once per day. 90 tablet 09/22/19 25 Active metFORMIN (Glucophage) 850 MG tabletIndication s:Type 2 diabetes mellitus without complication, without long-term current use of insulin ([facility]) Take 1 tablet (850 mg) by mouth with breakfast and with evening meal. 180 tablet 09/22/19 25 Active Shingrix 50 MCG/0.5ML vaccineIndicatio ns:Health care maintenance INJECT 0.5 ML INTRAMUSCULARLY ONCE AND REPEAT 2 TO 6 MONTHS AFTER 0.5 mL 10/03/19 Active Active Problems Problem Noted Date Diagnosed Date Diminished vision 09/22/2024 Anxiety with depression 09/22/2024 Assessment & Plan (09/22/2024 4:39 PM EST): BHN referral done today Class 2 severe obesity due t o excess calories with serious comorbidity in adult 09/22/2024 Assessment & Plan (09/22/2024 4:38 PM EST): Today extensive discussion was done about life style modifications I advise healthy diet (low calorie) and cardiovascular exercise Patient Registration Representative referral today Type 2 diabetes mellitus wit h hyperglycemia, without long-term current use of insulin 09/22/2024 Assessment & Plan (09/22/2024 4:41 PM EST): Diabetes is: not controlled - Lab Results Component Value Date HGBA1C 7.6 (A) 09/22/2024 HGBA1C 7.3 (H) 04/28/2024 - Lab Results Component Value Date CREATININE 1.07 04/28/2024 -Changes: I added jardiance to her medications - Diabetic eye exam:referral done - Diabetic foot exam:pending - Continue lifestyle modifications - Continue current medications - Follow up: 3 months Hx of cervical cancer 05/12/2024 Adenomatous polyp of colon 05/12/2024 Health care maintenance 05/12/2024 Breast cancer screening by mammogram 05/12/2024 Encounter for screening mammogram for breast can cer 05/12/2024 Moderate persistent asthma 05/12/2024 Assessment & Plan (09/22/2024 4:37 PM EST): Patient educated to avoid triggers Pulmonary nodules 05/12/2024 Chronic bilateral low back pain with bilateral s ciatica 05/12/2024 Chronic pain of both knees 05/12/2024 Primary hypertension 05/12/2024 Assessment & Plan (09/22/2024 4:37 PM EST): I advised: - Aerobic exercise to reduce BP. Initial goal of 30 min walk 3-5x/week. Increase as tolerated. - low-sodium diet (goal: <2g/day) and heart healthy diet such as DASH to reduce BP and prevent ASCVD. - Home BP monitoring 1-2 x day with goal of <140/90. - Seek immediate medical attention for chest pain, palpitations, SOB, syncope, or sudden changes in mental status. - Do not change or discontinue current prescriptions without first consulting health care provider GERD (gastroesophageal reflux disease) Assessment & Plan (09/22/2024 4:37 PM EST): I advise patient to avoid NSAIDs, spicy and acid food, I advise to eat at the same time every day, I advise to elevate the head of the bed and take medications as prescribe Acute upper respiratory infection 11/14/2023 Assessment & Plan (11/14/2023 8:44 PM EST): Symptoms appears viral in nature Here COVID ,Flu and strep test are neg No alarming features from symptoms nor examination -tylenol prn,ocean nasal spray ,dextromethorphan -hydration -continue inhalers -resume all her meds for now -alarm signs and symptoms discussed -pt request all meds refills -sent today x 3 months until starts care w new PCP Encounters * This document contains information received from the source organization and may not represent a complete record from that organization. Date Type Department Care Team Description 12/02/2024 Population Health Risk Score [facility] (C3) Department [address] [id number] Provider, Population Health Generic 11/22/2024 Telephone [facility] MEDICINE [address] [place] [address] Saima Villanueva MD nutrition aoppt request 10/31/2024 1:00 PM EST Clinical Support [facility] DIABETES/NUTRITION [address] [place] [address] Type 2 diabetes mellitus without complication, without long-term current use of insulin ([facility]) (Primary Dx); Class 2 severe obesity due to excess calories with serious comorbidity and body mass index (BMI) of 35.0 to 35.9 in adult (CMS/HCC) 10/31/2024 Travel 10/28/2024 11:00 AM EST Nutrition [facility] DIABETES/NUTRITION [address] [place] [address] Type 2 diabetes mellitus without complication, without long-term current use of insulin ([facility]); Class 2 severe obesity due to excess calories with serious comorbidity and body mass index (BMI) of 35.0 to 35.9 in adult ([facility]) 10/28/2024 Travel 10/27/2024 Travel 10/17/2024 Orders Only [facility] [address] [place] [address] ProviderMarian MD 10/11/2024 Travel 10/06/2024 Orders Only [facility] External Provider, [facility] 09/30/2024 Refill [facility] [address] [place] [address] Saima Villanueva MD Health care maintenance 09/27/2024 11:00 AM EST Office Visit [facility] ADULT DENTAL [address] [place] [address] Lokesh Cobb DDS 09/27/2024 Telephone [facility] [address] [place] [address] NUTRITION APPT REQUEST 09/26/2024 Telephone [facility] [address] [place] [address] Saima Villanueva MD 09/22/2024 3:30 PM EST Office Visit [facility] [address] [place] [address] Saima Villanueva MD Gastroesophageal reflux disease, unspecified whether esophagitis present (Primary Dx); Type 2 diabetes mellitus without complication, without long-term current use of insulin ([facility]); Diminished vision; Anxiety with depression; Class 2 severe obesity due to excess calories with serious comorbidity and body mass index (BMI) of 35.0 to 35.9 in adult ([facility]); Primary hypertension; Moderate persistent asthma, unspecified whether complicated; Type 2 diabetes mellitus with hyperglycemia, without long-term current use of insulin ([facility]) 09/22/2024 Travel from Last 3 Months Immunizations Name Administration Dates Next Due Pneumococcal Conjugate PCV 20 05/12/2024 Zoster, Recombinant 05/30/2024 Social History Tobacco Use Types Packs/Day Years Used Date Smoking Tobacco: Never Passive Smoke Exposure: Never Smokeless Tobacco: Never Tobacco Cessation:Counseling Given: Not Answered Alcohol Use Standard Drinks/Week Comments Never 0 (1 standard drink = 0.6 oz pur e alcohol) Depression Answer Date Recorded Patient Health Questionnaire-9 Score 10 10/12/2024 Patient Health Questionnaire-9 Score 10 10/12/2024 Last PHQ-9: Questionnaire Data Not on file 0 10/12/2024 Housing Stability Answer Date Recorded What is your housing situation today? I have faye wise 04/26/[address] you li ve. Do you have problems with any of the following? None of the above 04/26/2024 Food Insecurity Answer Date Recorded Within the past 12 months, y ou worried that your food would run out before you got money to buy more: Never True 04/26/2024 Within the past 12 months,th e food you bought just didn't last and you didn't have enough money to get more: Never True 02/2024 Transportation Answer Date Recorded In the past 12 months, has l ack of transportation kept you from medical appts, meetings, work or from getting things needed for daily living? No 04/26/2024 Utilities Answer Date Recorded In the past 12 months, has t he electric, gas, oil or water company threatened to shut off services in your home? No 05/12/2024 Depression Answer Date Recorded Patient Health Questionnaire-2 Score 3 10/12/2024 Internet Access Answer Date Recorded Internet Access Q1 No 05/23/2024 Internet Access Q2 I do not want or need it 10/2023 Comments Unknown Sex and Gender Information Value Date Recorded Sex Assigned at Female 11/12/2023 10:08 AM EST Legal Sex Female 4:32 PM EDT Gender Identity Female 11/12/2023 10:08 AM EST Sexual Orientation Straight 11/12/2023 10 :08 AM EST Last Filed Vital Signs Vital Sign Reading Time Taken Comments Blood Pressure 104/78 09/27/2024 11:14 AM EST Pulse 82 09/22/2024 2:55 PM EST Temperature 36.3 ??C (97.3 ??F) 09/22/2024 2:55 PM ES T Respiratory Rate 20 09/22/2024 2:55 PM EST Oxygen Saturation 97% 09/22/2024 2:55 PM EST Inhaled Oxygen Concentration - - Weight 89.9 kg (198 lb 3.2 oz) 10/28/2024 1:23 P M EST Height 160 cm (5' 3 ) 10/28/2024 1:23 PM EST Body Mass Index 35.11 10/28/2024 1:23 PM EST Plan of Treatment Upcoming Encounters Date Type Department Care Team (Late st Contact Info) Description 01/03/2025 3:15 PM EDT Office Visit [facility] OPTOMETRY [address] [place] [address] Nancy Cardoza, OD [address] [place] [address] 01/16/2025 11:15 AM EDT Office Visit [facility] MED[facility]INE [address] [place] [address] Saima Villanueva MD [address] [place] [address] Health Maintenance Due Date Last Done Comments CT Colonography 1969 Colonoscopy 1969 Colorectal Cancer Screening 1969 Dental Oral Exam 1969 Dental Prophylaxis 1969 Dental X-Ray: Full Mouth 1969 FIT DNA/Cologuard 1969 FIT 1969 FOBT 1969 HIV Screening 1969 Sigmoidoscopy 1969 Diabetes: Foot Exam 1979 Eye Exam 1979 Hepatitis C Screening 1987 DTaP/Tdap/Td Vaccines (1 - Tdap) 1988 Diabetes: Urine Protein Screening 1988 Hepatitis B Vaccines (1 of 3 - 19+ 3-dose series) 1988 COVID-19 Vaccine (2023-2 5 season) 2024 Influenza Vaccine (#1) 2024 Diabetes: Hemoglobin A1C 12/21/2024 025, 04/28/2024 Depression Monitoring (PHQ-9) 04/11/2025, 10/12/2024 Lipid Panel 04/28/2025 04/28/2024 SDOH Screening 05/12/2025 05/12/2024 Mammogram 06/02/2025 06/02/2024 Alcohol/Substance Use Screening 09/22/2025 09/22/2024 Tobacco Screening 09/27/2025 09/27/2024 Dental X-Ray: Bitewings 09/28/2025 09/27/2024 Depression Screening 10/12/2025 10/12/2024, 10/12/2024 Cervical Cancer Screening 07/05/2029 HPV/Cotest 07/05/2029 Pap Smear 07/05/2029 07/05/2024 RSV Patients and Patients Aged 60 years or older (1 - 1-dose 75+ series) 2044 Pneumococcal Vaccine: 50+ Years Completed 05/12/2024 Zoster Vaccines Completed 09/30/2024, 05/30/2024 HIB Vaccines Aged Out No longer eligi ble based on patient's age to complete this topic HPV Vaccines Aged Out No longer eligi ble based on patient's age to complete this topic Hepatitis A Vaccines Aged Out No long er eligible based on patient's age to complete this topic IPV Vaccines Aged Out No longer eligi ble based on patient's age to complete this topic Meningococcal Vaccine Aged Out No evelyn janel eligible based on patient's age to complete this topic RSV under 20 months Aged Out No longe r eligible based on patient's age to complete this topic Rotavirus Vaccines Aged Out No longer eligible based on patient's age to complete this topic Procedures Procedure Name Priority Date/Time Associated Diagnosis Comments FL GUIDANCE IN TREATMENT ROOM Routine 10/06/2024 1:30 PM EST CASE PRESENTATION, DETAILED AND EXTENSIVE TREATMENT PLANNING Routine 09/27/2024 11:00 AM EST BITEWING - SINGLE RADIOGRAPHIC IMAGE Routine 09/27/2024 11:00 AM EST INTRAORAL - PERIAPICAL EACH ADDITIONAL RADIOGRAPHIC IMAGE Routine 09/27/2024 11:00 AM EST INTRAORAL - PERIAPICAL FIRST RADIOGRAPHIC IMAGE Routine 09/27/2024 11:00 AM EST PALLIATIVE (EMERGENCY) TREATMENT OF DENTAL PAIN - MINOR PROCEDURE Routine 09/27/2024 11:00 AM EST 14 O AMALGAM FILLING Routine 09/27/2024 12:00 AM EST 16 O AMALGAM FILLING Routine 09/27/2024 12:00 AM EST 15 ROOT CANAL Routine 09/27/2024 12:00 AM EST POCT GLUCOSE Routine 09/22/2024 2:58 PM EST Type 2 diabetes mellitus without complication, without long-term current use of insulin (CMS/HCC) POCT GLYCATED HEMOGLOBIN, TOTAL Routine 09/22/2024 2:58 PM EST Type 2 diabetes mellitus without complication, without long-term current use of insulin (CMS/HCC) HM PAP/HPV Routine 07/05/2024 1:19 PM EDT BI MAMMOGRAM SCREENING TOMOSYNTHESIS BILATERAL Routine 06/02/2024 3:15 PM EDT Encounter for screening mammogram for breast cancer LIPID PANEL, STANDARD Routine 04/28/2024 9:05 AM EDT Type 2 diabetes mellitus without complication, without long-term current use of insulin (CMS/HCC) from Last 3 Months or Most Recently Relevant to Health Maintenance Results * FL Guidance in Treatment Room (10/06/2024 1:30 PM EST) Anatomical Region Laterality Modality X-Ray Angiograph y 10/06/2024 1:30 PM EST Narrative 10/10/2024 3:11 PM EST ? [facility] ?[address] ?[place] [address] ? Fluoroscopy Report ? Signed ? Patient: [place] ?MR ?? #: [id number] ? : 1970 ?Acct:[id number] ? Age/Sex: 53 / F ?ADM Date: 01/16/25 ? Loc: CF ? Attending Dr: Benjamín King MD ? Ordering Physician: Dang Jiang APRN, DUAL RATE SUPERVISOR ?? Date of Service: 10/06/24 ?? Procedure(s): FL guidance in treatment room ?? Accession Number(s): [id number] ? cc: Saima Villanueva MD; Dang Jiang APRN, DUAL RATE SUPERVISOR ? EXAMINATION: ??FL GUIDANCE ONLY ? HISTORY: M54.16 - Radiculopathy, lumbar region ? COMPARISON: ?? None available. ? TECHNIQUE: ?? Fluoroscopy time: 0.2 minutes. ?? Cumulative Dose: 7.79 mGy. ?? DAP: 0.0669 uGy-m2 (microgray-meter squared). ?? Images: 4. ? FINDINGS: ?? Images demonstrate a probe directed toward a lower lumbar vertebral ?? body from a posterior approach. ? FL/FL guidance in treatment room ?? IMPRESSION: ?? Fluoroscopy during procedure. Please see procedure report for ?? additional information. ? Electronically signed by: ??Chirag Basurto MD ??10/10/2024 03:08 PM EST ?? RP ? Dictated By: ?Chirag Basurto MD ? Signed By: ?<Electronically signed by Chirag Basurto MD in OV> ?10/10/24 1508 ? DD/ 1330 ? TD/TT: 10/06/24 1340 ? Sql Analyst: ? Procedure Note Mario, Image - 10/10/[address] [address] Fluoroscopy Report Signed Patient: Caroline DunneR #: [id number] : 1970Acct:[id number] Age/Sex: 53 / FADM Date: 10/06/24 Loc: CF Attending Dr: Benjamín King MD Ordering Physician: Dang Jiang APRN, CRUZITO Date of Service: 10/06/24 Procedure(s): FL guidance in treatment room Accession Number(s): [id number] cc: Saima Villanueva MD; Dang Jiang APRN, CRUZITO EXAMINATION: FL GUIDANCE ONLY HISTORY: M54.16 - Radiculopathy, lumbar region COMPARISON: None available. TECHNIQUE: Fluoroscopy time: 0.2 minutes. Cumulative Dose: 7.79 mGy. DAP: 0.0669 uGy-m2 (microgray-meter squared). Images: 4. FINDINGS: Images demonstrate a probe directed toward a lower lumbar vertebral body from a posterior approach. FL/FL guidance in treatment room IMPRESSION: Fluoroscopy during procedure. Please see procedure report for additional information. Electronically signed by: Chirag Basurto MD 10/10/2024 03:08 PM EST RP Dictated By: Chirag Basurto MD Signed By: <Electronically signed by Chirag Basurto MD in OV> 10/10/24 1508 DD/ 1330 TD/TT: 10/06/24 1340 Sql Analyst: [facility] External Provider IMG IR PROCEDURES Final Result * (ABNORMAL) POCT HGB A1C (09/22/2024 2:58 PM EST) Hemoglobin A1C 7.6(A) 4.0 - 6.0 % Blood 09/22/2024 2:58 PM EST Saima Dubois MD POINT OF CARE TEST EN TER/EDIT ORDERABLES Final Result * POCT Glucose (09/22/2024 2:58 PM EST) Glucose Blood, POC 142 60 - 200 mg/dL Blood Capillary blood specimen / Unknown 09/22/2024 2:58 PM EST Saima Dubois MD POINT OF CARE TEST EN TER/EDIT ORDERABLES Final Result * HM PAP/HPV (07/05/2024 1:19 PM EDT) Historical Provider HEALTH MAINTENANCE Final Result [facility] [address] [place] [address] * BI Mammogram Screening Tomosynthesis Bilateral (06/02/2024 3:15 PM EDT) Anatomical Region Laterality Modality Breast Bilateral Mammography 06/02/2024 3:15 PM EDT Narrative 06/21/2024 6:02 PM EDT ? [facility] ? [address] ?[place] [address] ? Mammography Report ? Signed ? Patient: Huddleston Александр,[place] ?MR ?? #: [id number] ? : 1970 ?Acct:[id number] ? Age/Sex: 53 / F ?ADM Date: 06/02/24 ? Loc: HO.MAMMO ? Attending Dr: Saima Dubois MD ? Ordering Physician: Saima Villanueva MD ?Results: ?? 1Negative ? Date of Service: 06/02/24 ?Follow Up: 1 Year From Orig ?? inal Mammogram ? Procedure(s): MM tomosynthesis screening BI ?? Accession Number(s): [id number] ? cc: Saima Villanueva MD ? EXAMINATION: ?? MM SCREENING DIGITAL BREAST TOMOSYNTHESIS, BILATERAL ? CLINICAL INFORMATION: ? Screening. Asymptomatic. ? COMPARISON: ?? Mammography: Comparison is made with available priors ? TECHNIQUE: ?? Digital breast mammography with tomosynthesis is performed in both the ?? craniocaudal and mediolateral oblique views along with computer-aided ?? detection (CAD). ? FINDINGS: ?? There are scattered areas of fibroglandular density (ACR BI-RADS breast ?? composition Category b). ? There are no significant masses, abnormal calcifications, or other ?? abnormalities. ? MM/MM tomosynthesis screening BI ?? IMPRESSION: ?? No mammographic evidence of malignancy. ? ASSESSMENT: ? BI-RADS BI-RADS 1 - Negative ? RECOMMENDATION: ?? Routine annual mammography screening. ? 1 year F/U ? This examination should not preclude the clinical evaluation of a ?? suspicious palpable abnormality. ? This patient's information was entered into a reminder system with a ?? target due date for their next mammogram. ? Electronically signed by: ??Darlene Caballero DO ??06/21/2024 05:59 PM EDT ? Dictated By: ?Darlene Caballero DO ? Signed By: ?<Electronically signed by Darlene Caballero, DO in OV> ? 06/21/24 175 ? DD/ 1515 ? TD/TT: 06/02/24 1540 ? Sql Analyst: ? Procedure Note Mario, Image - [facility]20[facility] [address] [place] [address] Mammography Report Signed Patient: Caroline DunneR #: [id number] : 1970Acct:[id number] Age/Sex: 53 / FADM Date: 06/02/24 Loc: [facility] Attending Dr: Saima Dubois MD Ordering Physician: Saima Villanueva MDResults: 1Negative Date of Service: 06/02/24Follow Up: 1 Year From Orig inal Mammogram Procedure(s): MM tomosynthesis screening BI Accession Number(s): [id number] cc: Saima Villanueva MD EXAMINATION: MM SCREENING DIGITAL BREAST TOMOSYNTHESIS, BILATERAL CLINICAL INFORMATION: Screening. Asymptomatic. COMPARISON: Mammography: Comparison is made with available priors TECHNIQUE: Digital breast mammography with tomosynthesis is performed in both the craniocaudal and mediolateral oblique views along with computer-aided detection (CAD). FINDINGS: There are scattered areas of fibroglandular density (ACR BI-RADS breast composition Category b). There are no significant masses, abnormal calcifications, or other abnormalities. MM/MM tomosynthesis screening BI IMPRESSION: No mammographic evidence of malignancy. ASSESSMENT: BI-RADS BI-RADS 1 - Negative RECOMMENDATION: Routine annual mammography screening. 1 year F/U This examination should not preclude the clinical evaluation of a suspicious palpable abnormality. This patient's information was entered into a reminder system with a target due date for their next mammogram. Electronically signed by: Darlene Caballero DO 06/21/2024 05:59 PM EDT RP Dictated By: Darlene Caballero DO Signed By: <Electronically signed by Darlene Caballero DO in OV> 06/21/24 1759 DD/ 1515 TD/TT: 06/02/24 1540 Sql Analyst: us Saima Dubois MD IMG BI PROCEDURES Mirza heather Result - Final * (ABNORMAL) Lipid Panel, Standard (04/28/2024 9:05 AM EDT) Triglycerides 135 <150 mg/dL [facility] Comment:Desirable Triglyceri de: less than 150 mg/dLBorderline High Triglyceride 150-199 mg/dLHigh Triglyceride: 200-499 mg/dLVery High Triglyceride: greater than or equal to 5OO mg/dL Cholesterol 227(H) <200 mg/dL [facility] Comment:Desirable Cholestero l: less than 200 mg/dLBorderline High Cholesterol: 200-239 mg/dLHigh Cholesterol: greater than 239 mg/dL LDL Cholesterol Calculated 157(H) <100 mg/dL [facility] Comment:Desirable LDL: less than 100 mg/dLNear Optimal/Above Optimal LDL: 110- 129 mg/dLBorderline High LDL: 130-159 mg/dLHigh LDL: 160-189 mg/dLVery High LDL: greater than or equal to 190 mg/dL HDL Cholesterol 43 >40 mg/dL [facility] Comment:Desirable HDL: great er than 40 mg/dL Note: This HDL assay may give artificially low results in patients with liver disease. Blood Venous blood specimen / Unknown 04/28/2024 9:05 AM EDT 04/28/2024 11:02 AM EDT us Isai Fregoso MD LAB BLOOD ORDERABL ES Final Result [facility] [address] [place] [address] [phone] from Last 3 Months or Most Recently Relevant to Health Maintenance Insurance [place] [facility] STAND ADULT Care Teams Wildlife Manager Relationship Specialty Start Date End Date Saima Villanueva MD [address] [place] [id number] PCP - General Internal Medicine 05/12/24
--- OUTSIDE RECORDS SUMMARY | 2024-12-21 09:28 | XMS_ITS | Encounter Summary ---
Author Organization [employer] Address [address] [facility] [address] [place] [address] Care Team Providers Care Senior Strategy Analyst Name Role Phone Saima Villanueva MD Primary Care Provide r Encounter Details Date Type Department Care Team ([facility] st Contact Info) Description 10/17/2024 Orders Only [facility] [address] [place] [address] Provider, MD Marian Social History Tobacco Use Types Packs/Day Years Used Date Smoking Tobacco: Never Passive Smoke Exposure: Never Smokeless Tobacco: Never Alcohol Use Standard Drinks/Week Comments Never 0 [...] Orientation Straight 11/12/2023 10 :08 AM EST documented as of this encounter Plan of Treatment Upcoming Encounters Date Type Department Care Team (Late st Contact Info) Description 01/03/2025 3:15 PM EDT Office Visit [facility] [address] [place] [address] Nancy Cardoza, OD [address] [place] [address] 01/16/2025 11:15 AM EDT Office Visit [facility] [address] [place] [address] Saima Villanueva MD [address] [place] [address] documented as of this encounter Procedures Procedure Name Priority Date/Time Associated Diagnosis Comments HM PAP/HPV Routine 07/05/2024 1:19 PM EDT documented in this encounter Results * HM PAP/HPV (07/05/2024 1:19 PM EDT) us Historical Provider HEALTH MAINTENANCE Final Result [facility] [address] [place] [address] documented in this encounter Visit Diagnoses Not on filedocumented in this encounter Additional Health Concerns Assessment Noted Time PHQ-9 Depression Total Score: 10 025 10:50 AM EST documented as of this encounter Care Teams Senior Strategy Analyst Relationship Specialty Start Date End Date Saima Villanueva MD [address] [place] [address] PCP - General Internal Medicine 05/12/24 documented as of this encounter
== END 2024-12-21 10:01 | disposition home or self-care (01) ==
LOC: HO.HGI 08:50
PROVIDERS: PCP Internal Medicine; Visit Provider Nurse Practitioner
DX: E11.9 Type 2 diabetes mellitus without complications (principal); D12.6 Benign neoplasm of colon, unspecified; K21.9 Gastro-esophageal reflux disease without esophagitis; Z80.0 Family history of malignant neoplasm of digestive organs; R68.81 Early satiety; K22.10 Ulcer of esophagus without bleeding; R13.10 Dysphagia, unspecified
CPT/HCPCS: 99203

== ENCOUNTER → 2024-12-21 08:49 | Outpatient (BNVA) | payer MEDICAID, SELFPAY | PROVIDERS: PCP Internal Medicine; Visit Provider Nurse Practitioner | DX: K21.9 Gastro-esophageal reflux disease without esophagitis (principal); K22.10 Ulcer of esophagus without bleeding; R13.10 Dysphagia, unspecified; R68.81 Early satiety; E11.9 Type 2 diabetes mellitus without complications; D12.6 Benign neoplasm of colon, unspecified; Z80.0 Family history of malignant neoplasm of digestive organs | CPT/HCPCS: 99212 ==

== ENCOUNTER → 2025-01-18 07:42 | Outpatient (REF) | payer MEDICAID, SELFPAY ==
--- NOTE | ~2025-01-18 | NM_ITS ---
EXAMINATION: MI RADIONUCLIDE SOLID FOOD GASTRIC EMPTYING 4-HOUR STUDY CLINICAL INFORMATION: K21.9 - Gastro-esophageal reflux disease without esophagitis COMPARISON: None TECHNIQUE: A standard meal consisting of 4 oz of Egg Beaters brand tagged with 0.95 mCi Tc-99m Sulfur Colloid, 8 oz water and 1.5 slices of toast with jelly was administered orally to the patient. Images were obtained using a dual head gamma camera in the anterior and posterior projections over of the stomach immediately post ingestion and at hourly intervals up to 4 hours post ingestion. The anterior and posterior counts at each time interval were averaged using the geometric mean and expressed as percentage of the immediate post ingestion counts. FINDINGS: There is visualization of activity in the stomach immediately post ingestion. As the study progresses, there is clearance of activity from the stomach and visualization of progressively increasing small bowel activity. By the end of the study, there is almost no retention noted in the stomach. Retention in the stomach at each time interval was: 1 hour 73% (normal 37%-90%) 2 hours 38% (normal 30%-60%) 3 hours 19% 4 hours 2% (normal 0%-10%) NM/MI gastric emptying study IMPRESSION: Normal 4-hour solid food gastric emptying study. For solid meal, rapid gastric emptying is less than 30% at 60 minutes. Delayed gastric emptying criteria is more than 60% remaining at 120 minutes or more than 10% at 240 minutes. The 4-hour value is the best discriminator of a normal or abnormal result). Gastric emptying study grading per JNMT Consensus Recommendations in 2008 (https://tech.snmjournals.org/content/36//44) Grade 1 (mild retention): 11-20% at 4h Grade 2 (moderate retention): 21-35% at 4h Grade 3 (severe retention): 36-50% at 4h Grade 4 (very severe retention): >50% retention at 4h Electronically signed by: Chirag Basurto MD 01/18/2025 02:19 PM EDT
--- OUTSIDE RECORDS SUMMARY | 2025-01-18 07:44 | XMS_ITS | Encounter Summary ---
Author Organization [employer] [facility] Address [address] [place] [address] 7[address] [place] [address] Care Team Providers Care Blower Operator Name Role Phone Saima Villanueva MD Primary Care Provide r Reason for Referral * Consultation (Routine) - Authorized Specialty Diagnoses / Procedures [facility] Referred To Contact Nutrition Diagnoses Type 2 diabetes mellitus with hyperglycemia, without long-term current use of insulin (CMS/[facility]) Saima Villanueva MD [address] [place] [id number] Phone: tel: fax: Referral ID Status Reason Start Date Expiration Date Visits Requested Visits Authorized [id number] Authorized Specialty Services Required 01/16/2025 01/16/2026 1 1 * Consultation (Routine) - Authorized Specialty Diagnoses / Procedures [facility] Referred To Contact Podiatry Diagnoses Type 2 diabetes mellitus with hyperglycemia, without long-term current use of insulin ([facility]) Neuropathy Saima Villanueva MD [address] [place] [address] Phone: tel: fax: [facility] [address] [facility] [address] [place] [address] Phone: tel: fax: Referral ID Status Reason Start Date Expiration Date Visits Requested Visits Authorized [id number] Authorized Specialty Services Required 01/17/2025 01/17/2026 6 6 Encounter Details Date Type Department Care Team (Late st Contact Info) Description 01/16/2025 11:15 AM EDT Office Visit [facility] [address] [place] [address] Saima Villanueva MD [address] [place] [address] Type 2 diabetes mellitus with hyperglycemia, without long-term current use of insulin ([facility]) (Primary Dx); Neuropathy; Gastroesophageal reflux disease, unspecified whether esophagitis present; Primary hypertension Social History Tobacco Use Types Packs/Day Years [...] AM EST documented as of this encounter Last Filed Vital Signs Vital Sign Reading Time Taken Comments Blood Pressure 142/75 01/16/2025 10:59 AM EDT Pulse 80 01/16/2025 10:59 AM EDT Temperature 37 ??C (98.6 ??F) 01/16/2025 10:59 AM EDT Respiratory Rate 20 01/16/2025 10:59 AM EDT Oxygen Saturation - - Inhaled Oxygen Concentration - - Weight 89.2 kg (196 lb 9.6 oz) 01/16/2025 10:59 AM EDT Height 160 cm (5' 3 ) 01/16/2025 10:59 AM EDT Body Mass Index 34.83 01/16/2025 10:59 AM EDT documented in this encounter Progress Notes * Saima Dubois MD - 01/16/2025 11:15 AM EDT SUBJECTIVE: America Fountain is a 54 y.o. year old female who presents for Chronic Disease Management . Acute Concerns: Patient admits she has not been adherent to her medications and to her diet she reports polyarthralgia and also feet tingling and pain Patient today also complaining of GERD Social History Social History Narrative Not on file Patient Active Problem List Diagnosis Acute upper respiratory infection Hx of cervical cancer Adenomatous polyp of colon Health care maintenance Breast cancer screening by mammogram Encounter for screening mammogram for breast cancer Moderate persistent asthma Pulmonary nodules Chronic bilateral low back pain with bilateral sciatica Chronic pain of both knees Primary hypertension GERD (gastroesophageal reflux disease) Diminished vision Anxiety with depression Class 2 severe obesity due to excess calories with serious comorbidity in adult ([facility]) Type 2 diabetes mellitus with hyperglycemia, without long-term current use of insulin ([facility]) Neuropathy No family history on file. Review of Systems Constitutional: Negative. HENT: Negative. Respiratory: Negative. Cardiovascular: Negative. Musculoskeletal: Positive for arthralgias and myalgias. Neurological: Positive for numbness. OBJECTIVE: Vitals: 01/16/25 1059 BP: (!) 142/75 BP Location: Left arm Patient Position: Sitting BP Cuff Size: Large adult Pulse: 80 Resp: 20 Temp: 98.6 ??F (37 ??C) TempSrc: Oral Weight: 196 lb 9.6 oz (89.2 kg) Height: 5' 3 (1.6 m) Physical Exam Constitutional: Appearance: Normal appearance. Cardiovascular: Rate and Rhythm: Normal rate and regular rhythm. Pulmonary: Effort: Pulmonary effort is normal. Breath sounds: Normal breath sounds. Abdominal: General: Abdomen is flat. Palpations: Abdomen is soft. Musculoskeletal: Right lower leg: No edema. Left lower leg: No edema. Neurological: Mental Status: She is alert. Follow Up: Follow up in about 3 months (around 04/17/2025) for chronic conditions . Current Outpatient Medications on File Prior to Visit Medication Sig Dispense Refill Advair Diskus 250-50 MCG/ACT aerosol powder INHALE 1 INHALATION AT NOON AND 1 INHALATION IN THE EVENING. 60 each 2 albuterol (2.5 MG/3ML) 0.083% nebulizer solution Take 3 mL (2.5 mg) by nebulization every 6 (six) hours if needed for wheezing. 75 mL 1 albuterol 108 (90 Base) MCG/ACT inhaler Inhale 2 puffs every 6 (six) hours if needed for wheezing. 18 g 2 Alcohol Swabs 70 % pads Use to test blood sugar 1 times daily 100 each 0 atorvastatin (Lipitor) 40 MG tablet Take 1 tablet (40 mg) by mouth Once per day. 90 tablet 0 Blood Glucose Monitoring Suppl (FreeStyle Yutan Lite) w/Device kit Use to test blood sugar 1 times daily 1 kit 0 cyclobenzaprine (Flexeril) 10 MG tablet Take 1 tablet (10 mg) by mouth 3 times daily for 10 days. 30 tablet 0 empagliflozin (Jardiance) 10 MG Take 1 tablet (10 mg) by mouth Once per day. 30 tablet 11 FREESTYLE LITE test strip Use to test blood sugar 1 times daily 100 each 0 Lancets misc Use to test blood sugar 1 times daily 100 each 0 meloxicam (Mobic) 15 MG tablet Take 1 tablet (15 mg) by mouth Once per day. 30 tablet 11 metFORMIN (Glucophage) 850 MG tablet Take 1 tablet (850 mg) by mouth with breakfast and with evening meal. 180 tablet 0 pantoprazole (Protonix) 40 MG EC tablet Take 1 tablet (40 mg) by mouth before breakfast. Do not crush, chew, or split. 30 tablet 11 polyvinyl alcohol (Liquifilm Tears) 1.4 % ophthalmic solution Administer 1 drop into both eyes if needed for dry eyes. 15 mL 4 Shingrix 50 MCG/0.5ML vaccine INJECT 0.5 ML INTRAMUSCULARLY ONCE AND REPEAT 2 TO 6 MONTHS AFTER 0.5mL 0 [DISCONTINUED] lisinopril 10 MG tablet Take 1 tablet (10 mg) by mouth Once per day. 90 tablet 0 No current facility-administered medications on file prior to visit. Problem List Items Addressed This Visit Type 2 diabetes mellitus with hyperglycemia, without long-term current use of insulin ([facility]) - Primary Diabetes is: not controlled - Lab Results Component Value Date HGBA1C 8.9 (A) 01/16/2025 HGBA1C 7.6 (A) 09/22/2024 HGBA1C 7.3 (H) 04/28/2024 - Lab Results Component Value Date CREATININE 1.07 04/28/2024 -Changes: I added today Trulicity 0.75 - Diabetic eye exam: Up-to-date - Diabetic foot exam: Referral done - Continue lifestyle modifications - Continue current medications - Follow up: 3 months Relevant Medications Dulaglutide (Trulicity) 0.75 MG/0.5ML solution auto-injector Other Relevant Orders POCT Glucose (Completed) POCT HGB A1C (Completed) Referral to Podiatry Lipid Panel, Standard Albumin, Random Urine W/Creatinine Comprehensive Metabolic Panel Referral to Nutrition Services, Internal Neuropathy Relevant Orders Referral to Podiatry GERD (gastroesophageal reflux disease) I advise patient to avoid NSAIDs, spicy and acid food, I advise to eat at the same time every day, I advise to elevate the head of the bed and take medications as prescribe Relevant Medications sucralfate (Carafate) 1 g tablet Primary hypertension Patient did not took her blood pressure medication today advised to take it every day without missing any dose and low-sodium diet with weight reduction Relevant Medications lisinopril 10 MG tablet documented in this encounter Miscellaneous Notes * Assessment & Plan Note - Saima Dubois MD - 01/16/2025 12:42 PM EDT Associated Problem(s): Type 2 diabetes mellitus with hyperglycemia, without long-term current use of insulin ([facility]) Diabetes is: not controlled - Lab Results Component Value Date HGBA1C 8.9 (A) 01/16/2025 HGBA1C 7.6 (A) 09/22/2024 HGBA1C 7.3 (H) 04/28/2024 - Lab Results Component Value Date CREATININE 1.07 04/28/2024 -Changes: I added today Trulicity 0.75 - Diabetic eye exam: Up-to-date - Diabetic foot exam: Referral done - Continue lifestyle modifications - Continue current medications - Follow up: 3 months * Assessment & Plan Note - Saima Dubois MD - 01/16/2025 12:41 PM EDT Associated Problem(s): GERD (gastroesophageal reflux disease) I advise patient to avoid NSAIDs, spicy and acid food, I advise to eat at the same time every day, I advise to elevate the head of the bed and take medications as prescribe * Assessment & Plan Note - Saima Dubois MD - 01/16/2025 12:40 PM EDT Associated Problem(s): Primary hypertension Patient did not took her blood pressure medication today advised to take it every day without missing any dose and low-sodium diet with weight reduction documented in this encounter Plan of Treatment Upcoming Encounters Date Type Department Care Team (Late st Contact Info) Description 04/18/2025 10:45 AM EDT Office Visit [facility] [address] [place] [address] Saima Villanueva MD [address] [place] [address] Scheduled Orders Name Type Priority Associated Diagnoses Orde r Schedule Lipid Panel, Standard Lab Routine Type 2 diabetes mellitus with hyperglycemia, without long-term current use of insulin (CMS/HCC) Expected: 01/16/2025 (Approximate), Expires: 01/16/2026 Albumin, Random Urine W/Creatinine Lab Routine Type 2 diabetes mellitus with hyperglycemia, without long-term current use of insulin (CMS/HCC) Expected: 01/16/2025 (Approximate), Expires: 01/16/2026 Comprehensive Metabolic Panel Lab Routine Type 2 diabetes mellitus with hyperglycemia, without long-term current use of insulin (CMS/HCC) Expected: 01/16/2025 (Approximate), Expires: 01/16/2026 Scheduled Referrals Name Type Priority Associated Diagnoses Orde r Schedule Referral to Podiatry Outpatient Referral Routine Type 2 diabetes mellitus with hyperglycemia, without long-term current use of insulin (CMS/HCC) Neuropathy Expected: 01/16/2025 (Approximate), Expires: 01/16/2026 Referral to Nutrition Services, Internal Outpatient Referral Routine Type 2 diabetes mellitus with hyperglycemia, without long-term current use of insulin (CMS/HCC) Expected: 01/16/2025 (Approximate), Expires: 01/16/2026 documented as of this encounter Procedures Procedure Name Priority Date/Time Associated Diagnosis Comments POCT GLYCATED HEMOGLOBIN, TOTAL Routine 01/16/2025 11:00 AM EDT Type 2 diabetes mellitus with hyperglycemia, without long-term current use of insulin (CMS/HCC) POCT GLUCOSE Routine 01/16/2025 11:00 AM EDT Type 2 diabetes mellitus with hyperglycemia, without long-term current use of insulin (CMS/[facility]) documented in this encounter Results * (ABNORMAL) POCT HGB A1C (01/16/2025 11:00 AM EDT) Hemoglobin A1C 8.9(A) 4.0 - 6.0 % QC Media Lot # [id number] Lot# Expiration Date [id number] Blood 01/16/2025 11:0 0 AM EDT Saima Dubois MD POINT OF CARE TEST EN TER/EDIT ORDERABLES Final Result * (ABNORMAL) POCT Glucose (01/16/2025 11:00 AM EDT) Glucose Blood, POC 234(A) 60 - 200 mg/dL Comment:random QC Media Lot # [id number] Lot# Expiration Date ,423 Blood Capillary blood specimen / Unknown 01/16/2025 11:00 AM EDT Saima Dubois MD POINT OF CARE TEST EN TER/EDIT ORDERABLES Final Result documented in this encounter Visit Diagnoses Diagnosis Type 2 diabetes mellitus with hyperglycemia, without long-term current use of insulin ([facility])- Primary Neuropathy Mononeuritis of unspecified site Gastroesophageal reflux disease, unspecified whether esophagitis present Primary hypertension Unspecified essential hypertension documented in this encounter Additional Health Concerns Assessment Noted Time PHQ-9 Depression Total Score: 10 025 10:50 AM EST documented as of this encounter Care Teams Blower Operator Relationship Specialty Start Date End Date Saima Villanueva MD [address] [place] [address] PCP - General Internal Medicine 05/12/24 documented as of this encounter
--- OUTSIDE RECORDS SUMMARY | 2025-01-18 07:44 | XMS_ITS | Encounter Summary ---
Author Organization [facility] Address [address] [facility] [address] [place] [address] Care Team Providers Care Orthopedic Physician Name Role Phone Saima Villanueva MD Primary Care Provide r Encounter Details Date Type Department Care Team (Latest Contact Info) Description 01/16/2025 Travel Social History Tobacco Use Types Packs/Day Years [...] is your housing situation today? I have fayejuan wise 04/26/[address] you [...] Description 04/18/2025 10:45 AM EDT Office Visit [facility] MEDICINE [address] [place] [id number] Saima Villanueva MD [address] [place] [address] documented as of this encounter Visit Diagnoses Not on filedocumented in this encounter Additional Health Concerns Assessment Noted Time PHQ-9 Depression Total Score: 10 025 10:50 AM EST documented as of this encounter Care Teams Orthopedic Physician Relationship Specialty Start Date End Date Saima Villanueva MD [address] [place] [id number] PCP - General Internal Medicine 05/12/24 documented as of this encounter
--- OUTSIDE RECORDS SUMMARY | 2025-01-18 07:44 | XMS_ITS | Clinical Summary ---
Author Organization [employer] Address [address] [place] [address] [address] [place] [address] Care Team Providers Care Investor Relations Coordinator Name Role Phone Saima Villanueva MD Primary Care Provide r Allergies No known active allergies Medications * This document contains information received from the source organization and may not represent a complete record from that organization. albuterol (2.5 MG/3ML) 0.083% nebulizer solution Take 3 mL (2.5 mg) by nebulization every 6 (six) hours if needed for wheezing. 75 mL 1 Active Advair Diskus 250-50 MCG/ACT aerosol powder INHALE 1 INHALATION AT NOON AND 1 INHALATION IN THE EVENING. 60 each 2 Active meloxicam (Mobic) 15 MG tablet Take 1 tablet (15 mg) by mouth Once per day. 30 tablet 024 2024 Active cyclobenzaprine (Flexeril) 10 MG tabletIndicatio ns:Chronic bilateral low back pain with bilateral sciatica Take 1 tablet (10 mg) by mouth 3 times daily for 10 days. 30 tablet Active pantoprazole (Protonix) 40 MG EC tabletIndicatio ns:Gastroesopha geal reflux disease, unspecified whether esophagitis present Take 1 tablet (40 mg) by mouth before breakfast. Do not crush, chew, or split. 30 tablet 11 025 2025 Active empagliflozin (Jardiance) 10 MGIndications:T ype 2 diabetes mellitus without complication, without long-term current use of insulin ([facility]) Take 1 tablet (10 mg) by mouth Once per day. 30 tablet 11 025 2025 Active FREESTYLE LITE test stripIndication s:Type 2 diabetes mellitus without complication, without long-term current use of insulin ([facility]) Use to test blood sugar 1 times daily 100 each 025 2025 Active Lancets miscIndications :Type 2 diabetes mellitus without complication, without long-term current use of insulin ([facility]) Use to test blood sugar 1 times daily 100 each 025 Active Alcohol Swabs 70 % padsIndications :Type 2 diabetes mellitus without complication, without long-term current use of insulin ([facility]) Use to test blood sugar 1 times daily 100 each 025 Active Blood Glucose Monitoring Suppl (FreeStyle [place] Lite) w/Device kitIndications: Type 2 diabetes mellitus without complication, without long-term current use of insulin ([facility]) Use to test blood sugar 1 times daily 1 kit Active albuterol 108 (90 Base) MCG/ACT inhalerIndicati ons:Moderate persistent asthma, unspecified whether complicated Inhale 2 puffs every 6 (six) hours if needed for wheezing. 18 g 2 025 2025 Active atorvastatin (Lipitor) 40 MG tabletIndicatio ns:Primary hypertension Take 1 tablet (40 mg) by mouth Once per day. 90 tablet 025 2025 Active metFORMIN (Glucophage) 850 MG tabletIndicatio ns:Type 2 diabetes mellitus without complication, without long-term current use of insulin ([facility]) Take 1 tablet (850 mg) by mouth with breakfast and with evening meal. 180 tablet 025 2025 Active Shingrix 50 MCG/0.5ML vaccineIndicati ons:Health care maintenance INJECT 0.5 ML INTRAMUSCULARLY ONCE AND REPEAT 2 TO 6 MONTHS AFTER 0.5 mL Active polyvinyl alcohol (Liquifilm Tears) 1.4 % ophthalmic solutionIndicat ions:Dry eyes, bilateral Administer 1 drop into both eyes if needed for dry eyes. 15 mL 4 025 2025 Active Dulaglutide (Trulicity) 0.75 MG/0.5ML solution auto-injectorIn dications:Type 2 diabetes mellitus with hyperglycemia, without long-term current use of insulin ([facility]) Inject 0.75 mg under the skin 1 (one) time per week. 0.5 mL 3 Active sucralfate (Carafate) 1 g tabletIndicatio ns:Gastroesopha geal reflux disease, unspecified whether esophagitis present Take 1 tablet (1 g) by mouth before breakfast, before lunch, and before evening meal. 90 tablet 11 025 2025 Active lisinopril 10 MG tabletIndicatio ns:Primary hypertension Take 1 tablet (10 mg) by mouth Once per day. 90 tablet 025 2025 Active lisinopril 10 MG tabletIndicatio ns:Primary hypertension Take 1 tablet (10 mg) by mouth Once per day. 90 tablet 025 2024 Discontinued(R eorder (will not trigger notification to Pharmacy)) Active Problems Problem Noted Date Diagnosed Date Neuropathy 01/16/2025 Diminished vision 09/22/2024 Anxiety with depression 09/22/2024 Assessment & Plan (09/22/2024 4:39 PM EST): [facility] referral done today Class 2 severe obesity due t o excess calories with serious comorbidity in adult 09/22/2024 Assessment & Plan (09/22/2024 4:38 PM EST): Today extensive discussion was done about life style modifications I advise healthy diet (low calorie) and cardiovascular exercise [employer] referral today Type 2 diabetes mellitus wit h hyperglycemia, without long-term current use of insulin 09/22/2024 Assessment & Plan (01/16/2025 12:42 PM EDT): Diabetes is: not controlled - Lab Results Component Value Date HGBA1C 8.9 (A) 01/16/2025 HGBA1C 7.6 (A) 09/22/2024 HGBA1C 7.3 (H) 04/28/2024 - Lab Results Component Value Date CREATININE 1.07 04/28/2024 -Changes: I added today Trulicity 0.75 - Diabetic eye exam: Up-to-date - Diabetic foot exam: Referral done - Continue lifestyle modifications - Continue current medications - Follow up: 3 months Assessment & Plan (09/22/2024 4:41 PM EST): [...] 05/12/2024 Primary hypertension 05/12/2024 Assessment & Plan (01/16/2025 12:40 PM EDT): Patient did not took her blood pressure medication today advised to take it every day without missing any dose and low-sodium diet with weight reduction Assessment & Plan (09/22/2024 4:37 PM EST): [...] GERD (gastroesophageal reflux disease) Assessment & Plan (01/16/2025 12:41 PM EDT): I advise patient to avoid NSAIDs, spicy and acid food, I advise to eat at the same time every day, I advise to elevate the head of the bed and take medications as prescribe Assessment & Plan (09/22/2024 4:37 PM EST): [...] organization. Date Type Department Care Team Description 01/16/2025 11:15 AM EDT Office Visit [facility] MEDICINE [address] [place] [address] Saima Villanueva MD Type 2 diabetes mellitus with hyperglycemia, without long-term current use of insulin ([facility]) (Primary Dx); Neuropathy; Gastroesophageal reflux disease, unspecified whether esophagitis present; Primary hypertension 01/16/2025 Travel 01/12/2025 Telephone [facility] MEDICINE [address] [place] [address] Saima Villanueva MD Chart prep 01/09/2025 Travel 01/03/2025 3:15 PM EDT Office Visit [facility] OPTOMETRY [address] [place] [address] Tarka, Nancy, OD Type 2 diabetes mellitus without ophthalmic manifestations ([facility]/H[facility]) (Primary Dx); Dry eyes, bilateral; Regular astigmatism, bilateral 01/03/2025 Travel 12/27/2024 Travel 12/02/2024 Population Health Risk Score [facility] () [address] [phone] Provider, Population Health Generic 11/22/2024 Telephone [facility] MEDICINE [address] [place] [address] Saima Villanueva MD nutrition aoppt request 10/31/2024 1:00 PM EST Clinical Support [facility] DIABETES/NUTRITION [address] [place] [address] Type 2 diabetes mellitus without complication, without long-term current use of insulin ([facility]/H[facility]) (Primary Dx); Class 2 severe obesity due to excess calories with serious comorbidity and body mass index (BMI) of 35.0 to 35.9 in adult ([facility]) 10/31/2024 Travel 10/28/2024 11:00 AM EST Nutrition [facility] DIABETES/NUTRITION [address] [place] [address] Type 2 diabetes mellitus without complication, without long-term current use of insulin ([facility]); Class 2 severe obesity due to excess calories with serious comorbidity and body mass index (BMI) of 35.0 to 35.9 in adult ([facility]) 10/28/2024 Travel 10/27/2024 Travel from Last 3 Months Immunizations Name Administration Dates Next Due Pneumococcal Conjugate PCV 20 05/12/2024 Zoster, Recombinant 09/30/2024,05/30/2024 Social History Tobacco Use Types Packs/Day Years [...] 20 01/16/2025 10:59 AM EDT Oxygen Saturation 97% 09/22/2024 2:55 PM EST Inhaled Oxygen Concentration - - Weight 89.2 kg (196 lb 9.6 oz) 01/16/2025 10:59 AM EDT Height 160 cm (5' 3 ) 01/16/2025 10:59 AM EDT Body Mass Index 34.83 01/16/2025 10:59 AM EDT Plan of Treatment Upcoming Encounters Date Type Department Care Team (Late st Contact Info) Description 04/18/2025 10:45 AM EDT Office Visit [facility] MEDICINE [address] [place] [address] Saima Villanueva MD [address] [place] [address] Health Maintenance Due Date Last Done Comments CT Colonography 1969 Colonoscopy 1969 Colorectal Cancer Screening 1969 Dental Oral Exam 1969 Dental Prophylaxis 1969 Dental X-Ray: Full Mouth 1969 FIT DNA/Cologuard 1969 FIT 1969 FOBT 1969 HIV Screening 1969 Sigmoidoscopy 1969 Diabetes: Foot Exam 1979 Hepatitis C Screening 1987 DTaP/Tdap/Td Vaccines (1 - Tdap) 1988 Diabetes: Urine Protein Screening 1988 Hepatitis B Vaccines (1 of 3 - 19+ 3-dose series) 1988 COVID-19 Vaccine ( - 2023- season) 2024 Influenza Vaccine (#1) 2024 Diabetes: Hemoglobin A1C 04/17/2025 025, 09/22/2024, 04/28/2024 Lipid Panel 04/28/2025 04/28/2024 SDOH Screening 05/12/2025 05/12/2024 Mammogram 06/02/2025 06/02/2024 Alcohol/Substance Use Screening 09/22/2025 09/22/2024 Dental X-Ray: Bitewings 09/28/2025 09/27/2024 Depression Screening 10/12/2025 10/12/2024, 10/12/19 Tobacco Screening 01/16/2026 01/16/2025 Eye Exam 01/03/2027 01/03/2025, 12/20, 01/03/2025, Additional history exists Cervical Cancer Screening 07/05/2029 HPV/Cotest 07/05/2029 Pap [...] hyperglycemia, without long-term current use of insulin ([facility]) POCT GLUCOSE Routine 01/16/2025 11:00 AM EDT Type 2 diabetes mellitus with hyperglycemia, without long-term current use of insulin ([facility]) BITEWING - SINGLE RADIOGRAPHIC IMAGE Routine 09/27/2024 11:00 AM EST HM PAP/HPV Routine 07/05/2024 1:19 PM EDT BI MAMMOGRAM SCREENING TOMOSYNTHESIS BILATERAL Routine 06/02/2024 3:15 PM EDT Encounter for screening mammogram for breast cancer LIPID PANEL, STANDARD Routine 04/28/2024 9:05 AM EDT Type 2 diabetes mellitus without complication, without long-term current use of insulin (CMS/HCC) from Last 3 Months or Most Recently Relevant to Health Maintenance Results * (ABNORMAL) POCT HGB A1C (01/16/2025 11:00 AM EDT) Hemoglobin A1C 8.9(A) 4.0 - 6.0 % QC Media Lot # [id number] Lot# Expiration Date 295, Blood 01/16/2025 11:0 0 AM EDT us Saima Dubois MD POINT OF CARE TEST EN TER/EDIT ORDERABLES Final Result * (ABNORMAL) POCT Glucose (01/16/2025 11:00 AM EDT) [facility] Glucose Blood, POC 234(A) 60 - 200 mg/dL Comment:random QC Media Lot # [id number] Lot# Expiration Date Blood Capillary blood specimen / Unknown 01/16/2025 11:00 AM EDT us Saima Dubois MD POINT OF CARE TEST EN TER/EDIT ORDERABLES Final Result * HM PAP/HPV (07/05/2024 1:19 PM EDT) Historical Provider HEALTH MAINTENANCE Final Result [facility] [address] [place] [address] * BI Mammogram Screening Tomosynthesis Bilateral (06/02/2024 3:15 PM EDT) Anatomical Region Laterality Modality Breast Bilateral Mammography 06/02/2024 3:15 PM EDT Narrative 06/21/2024 6:02 PM EDT ? [facility] ? [address] ?[place] [address] ? Mammography Report ? Signed ? Patient: Karo [place] ?MR ?? #: [id number] ? : 1970 ?Acct:[id number] ? Age/Sex: 53 / F ?ADM Date: 09/12/24 ? Loc: HO.MAMMO ? Attending Dr: Saima Dubois MD ? Ordering Physician: Saima Villanueva MD ?Results: ?? 1Negative ? Date of Service: 06/02/24 ?Follow Up: 1 Year From Orig ?? inal Mammogram ? Procedure(s): MM tomosynthesis screening BI ?? Accession Number(s): [id number] ? cc: Saima Villanueva MD ? EXAMINATION: [...] ??Darlene Caballero DO ??06/21/2024 05:59 PM EDT ?? RP ? Dictated By: ?Darlene Caballero DO ? Signed By: ?<Electronically signed by Darlene Caballero, DO in OV> ? 06/21/24 1759 ? DD/ 1515 ? TD/TT: 06/02/24 1540 ? Gameplay Programmer: ? Procedure Note Donotuseinterpreter, Image - 06/21/2024 [facility] [address] [place], [place] [address] Mammography Report Signed Patient: Caroline DunneR #: [id number] : 1970Acct:[id number] Age/Sex: 53 / FADM Date: 06/02/24 Loc: HO.MAMMO Attending Dr: Saima Dubois MD Ordering Physician: Saima Villanueva [facility] miguelults: 1Negative Date of Service: 06/02/24Follow Up: 1 Year From Orig inal Mammogram Procedure(s): MM tomosynthesis screening BI Accession Number(s): [id number] cc: Saima Villanueva MD EXAMINATION: MM SCREENING [...] Darlene Caballero DO 06/21/2024 05:59 PM EDT Dictated By: Darlene Caballero DO Signed By: <Electronically signed by Darlene Caballero DO in OV> 06/21/24 1329 DD/ 1515 TD/TT: 06/02/24 1540 Gameplay Programmer: us Saima Dubois MD IMG BI PROCEDURES Mirza heather Result - Final * (ABNORMAL) Lipid Panel, Standard (04/28/2024 9:05 AM EDT) Triglycerides 135 <150 mg/dL [facility] Comment:Desirable Triglyceri de: less than 150 mg/dLBorderline High Triglyceride 150-199 mg/dLHigh Triglyceride: 200-499 mg/dLVery High Triglyceride: greater than or equal to 5OO mg/dL Cholesterol 227(H) <200 mg/dL [facility] Comment:Desirable Cholestero l: less than 200 mg/dLBorderline High Cholesterol: 200-239 mg/dLHigh Cholesterol: greater than 239 mg/dL LDL Cholesterol Calculated 157(H) <100 mg/dL [facility] Comment:Desirable LDL: less than 100 mg/dLNear Optimal/Above Optimal LDL: 110- 129 mg/dLBorderline High LDL: 130-159 mg/dLHigh LDL: 160-189 mg/dLVery High LDL: greater than or equal to 190 mg/dL HDL Cholesterol 43 >40 mg/dL [facility] Comment:Desirable HDL: great er than 40 mg/dL Note: This HDL assay may give artificially low results in patients with liver disease. Blood Venous blood specimen / Unknown 04/28/2024 9:05 AM EDT 04/28/2024 11:02 AM EDT us Isai Fregoso MD LAB BLOOD ORDERABL ES Final Result [facility] [address] [place] [address] [phone] from Last 3 Months or Most Recently Relevant to Health Maintenance Insurance [facility] ST[facility] ADULT Care Teams Investor Relations Coordinator Relationship Specialty Start Date End Date Saima Villanueva MD [address] [place] [id number] PCP - General Internal Medicine 05/12/24
== END ==
LOC: HO.NUCMED 07:42
PROVIDERS: PCP Internal Medicine; Visit Provider Nurse Practitioner
DX: R68.81 Early satiety (principal); D12.6 Benign neoplasm of colon, unspecified; K21.9 Gastro-esophageal reflux disease without esophagitis; E11.9 Type 2 diabetes mellitus without complications; Z80.0 Family history of malignant neoplasm of digestive organs
CPT/HCPCS: 78264; A9541

== ENCOUNTER → 2025-01-18 07:44 | Outpatient (BNV) | payer MEDICAID, SELFPAY | PROVIDERS: PCP Internal Medicine; Visit Provider Radiology Diagnostic Radiology | DX: K21.9 Gastro-esophageal reflux disease without esophagitis (principal) | CPT/HCPCS: 78264 ==

== ENCOUNTER 2025-02-07 09:46 | Outpatient (REF) | payer MEDICAID, SELFPAY ==
--- OUTSIDE RECORDS SUMMARY | 2025-02-07 10:46 | XMS_ITS | Encounter Summary ---
Author Organization [employer] Address [address] [place] [address] Care Team Providers Care Refractory Tile Helper Name Role Phone Saima Villanueva MD Primary Care Provide r Encounter Details Date Type Department Care Team ([facility] st Contact Info) Description 10/17/2024 Orders Only [facility] MED[facility] [address] [place] [address] Provider, Marian, Social History Tobacco Use Types Packs/Day Years [...] Description 04/18/2025 10:45 AM EDT Office Visit [facility] MED[facility] [address] [place] [phone] Saima Villanueva MD [address] [place] [address] documented as of this encounter Procedures Procedure Name Priority Date/Time Associated Diagnosis Comments HM PAP/HPV Routine 07/05/2024 1:19 PM EDT documented in this encounter Results * HM PAP/HPV (07/05/2024 1:19 PM EDT) us Historical Provider HEALTH MAINTENANCE Final Result Performing Organization Address City/State/[facility] [[email or web address]] Co de Phone Number [facility] [address] [place] [address] documented in this encounter Visit Diagnoses Not on filedocumented in this encounter Additional Health Concerns Assessment Noted Time PHQ-9 Depression Total Score: 10 025 10:50 AM EST documented as of this encounter Care Teams Refractory Tile Helper Relationship Specialty Start Date End Date Saima Villanueva MD [address] [place] [id number] PCP - General Internal Medicine 05/12/24 documented as of this encounter
--- OUTSIDE RECORDS SUMMARY | 2025-02-07 10:46 | XMS_ITS | Clinical Summary ---
Author Organization [employer] Address [address] [facility] [address] [place] [address] Care Team Providers Care Copper Plate Lithographer Name Role Phone Saima Villanueva MD Primary [...] complication, without long-term current use of insulin ([facility]) Take 1 tablet (10 mg) by mouth Once per day. 30 tablet 11 025 2025 Active FREESTYLE LITE test stripIndication s:Type 2 diabetes mellitus without complication, without long-term current use of insulin ([facility]) Use to test blood sugar 1 times daily 100 each 025 2025 Active Lancets miscIndications :Type 2 diabetes mellitus without complication, without long-term current use of insulin ([facility]) Use to test blood sugar 1 times daily 100 each 025 Active Alcohol Swabs 70 % padsIndications :Type 2 diabetes mellitus without complication, without long-term current use of insulin ([facility]) Use to test blood sugar 1 times daily 100 each 025 Active Blood Glucose Monitoring Suppl (FreeStyle Alfred Lite) w/Device kitIndications: Type 2 diabetes mellitus without complication, without long-term current use of insulin ([facility]) Use to test blood sugar 1 times [...] complication, without long-term current use of insulin ([facility]) Take 1 tablet (850 mg) by mouth [...] hyperglycemia, without long-term current use of insulin ([facility]) Inject 0.75 mg under the skin 1 [...] healthy diet (low calorie) and cardiovascular exercise Water Purifier referral today Type 2 diabetes mellitus wit [...] organization. Date Type Department Care Team Description 01/18/2025 Orders Only [facility] External Provider, [facility] 01/16/2025 11:15 AM EDT Office Visit [facility] MEDICINE [address] [place] [address] Saima Villanueva MD Type 2 diabetes mellitus with hyperglycemia, without long-term current use of insulin ([facility]) (Primary Dx); Neuropathy; Gastroesophageal reflux disease, unspecified whether esophagitis present; Primary hypertension 01/16/2025 Travel 01/12/2025 Telephone [facility] MEDICINE [address] [place] [address] Saima Villanueva MD Chart prep 01/09/2025 Travel 01/03/2025 3:15 PM EDT Office Visit [facility] OPTOMETRY [address] [place] [address] Nancy Cardoza, OD Type 2 diabetes mellitus without ophthalmic manifestations (CMS/HCC) (Primary Dx); Dry eyes, bilateral; Regular astigmatism, bilateral 01/03/2025 Travel 12/27/2024 Travel 12/02/2024 Population Health Risk Score [facility] (C3) Department [address] [place] [phone] Provider, Population Health Generic 11/22/2024 Telephone [facility] MEDICINE [address] [place] [address] Saima Villanueva MD nutrition aoppt request from Last 3 Months Immunizations Immunization Administration Dates Next Due Pneumococcal Conjugate PCV [...] Description 04/18/2025 10:45 AM EDT Office Visit [facility] MEDICINE [address] [place] [phone] Saima Villanueva MD [address] [place] [address] Health Maintenance Due Date Last Done Comments CT Colonography 1969 Colonoscopy 1969 Colorectal Cancer Screening 1969 Dental Oral Exam 1969 Dental Prophylaxis 1969 Dental X-Ray: Full Mouth 1969 FIT DNA/Cologuard 1969 FIT 1969 FOBT 1969 HIV Screening 1969 Sigmoidoscopy 1969 Disability Screening 1969 Diabetes: Foot Exam 1979 Hepatitis C [...] patient's age to complete this topic Meningococcal B Vaccine Aged Out No l onger eligible based on patient's age to complete [...] Procedure Name Priority Date/Time Associated Diagnosis Comments NM GASTRIC EMPTYING SOLID Routine 01/18/2025 7:44 AM EDT POCT GLYCATED HEMOGLOBIN, TOTAL Routine 01/16/2025 11:00 AM EDT Type 2 diabetes mellitus with hyperglycemia, without long-term current use of insulin (CMS/HCC) POCT GLUCOSE Routine 01/16/2025 11:00 AM EDT Type 2 diabetes mellitus with hyperglycemia, without long-term current use of insulin (CMS/HCC) BITEWING - SINGLE RADIOGRAPHIC IMAGE Routine 09/27/2024 11:00 AM EST HM PAP/HPV Routine 07/05/2024 1:19 PM EDT BI MAMMOGRAM SCREENING TOMOSYNTHESIS BILATERAL Routine 06/02/2024 3:15 PM EDT Encounter for screening mammogram for breast cancer LIPID PANEL, STANDARD Routine 04/28/2024 9:05 AM EDT Type 2 diabetes mellitus without complication, without long-term current use of insulin ([facility]) from Last 3 Months or Most Recently Relevant to Health Maintenance Results * NM Gastric Emptying Solid (01/18/2025 7:44 AM EDT) Anatomical Region Laterality Modality Body Nuclear Medicine 01/18/2025 7:44 AM EDT Narrative 01/18/2025 2:22 PM EDT ? [facility] ?[address] ?[place] [address] ?Nuclear Medicine Report ? Signed ? Patient: Karo Fountain,[place] ?MR ?? #: [id number] ? : 1970 ?Acct:[id number] ? Age/Sex: 54 / F ?ADM Date: 04/30/25 ? Loc: HO.NUCMED ? Attending : Gila HAWLEY ? Ordering Physician: Gila Mackenzie ?? Date of Service: 01/18/25 ?? Procedure(s): NM gastric emptying study ?? Accession Number(s): [id number] ? cc: Saima Villanueva MD; Gila Mackenzie ? EXAMINATION: ??NM RADIONUCLIDE SOLID FOOD GASTRIC EMPTYING 4-HOUR STUDY ? CLINICAL INFORMATION: ??K21.9 - Gastro-esophageal reflux disease without ?? esophagitis ? COMPARISON: ?? None ? TECHNIQUE: ?? A standard meal consisting of 4 oz of Egg Beaters brand tagged with ?? 0.95 mCi Tc-99m Sulfur Colloid, 8 oz water and 1.5 slices of toast with ?? jelly was administered orally to the patient. Images were obtained ?? using a dual head gamma camera in the anterior and posterior ?? projections over of the stomach immediately post ingestion and at ?? hourly intervals up to 4 hours post ingestion. The anterior and ?? posterior counts at each time interval were averaged using the ?? geometric mean and expressed as percentage of the immediate post ?? ingestion counts. ? FINDINGS: ?? There is visualization of activity in the stomach immediately post ?? ingestion. As the study progresses, there is clearance of activity from ?? the stomach and visualization of progressively increasing small bowel ?? activity. By the end of the study, there is almost no retention noted ?? in the stomach. Retention in the stomach at each time interval was: ? 1 hour 73% (normal 37%-90%) ?? 2 hours 38% (normal 30%-60%) ?? 3 hours 19% ?? 4 hours 2% (normal 0%-10%) ? NM/NM gastric emptying study ?? IMPRESSION: ?? Normal 4-hour solid food gastric emptying study. ? For solid meal, rapid gastric emptying is less than 30% at 60 minutes. ?? Delayed gastric emptying criteria is more than 60% remaining at 120 ?? minutes or more than 10% at 240 minutes. The 4-hour value is the best ?? discriminator of a normal or abnormal result). ? Gastric emptying study grading per JNMT Consensus Recommendations in ?? 2007 (https://tech.snmjournals.org/content/36/1/44) ? Grade 1 (mild retention): 11-20% at 4h ?? Grade 2 (moderate retention): 21-35% at 4h ?? Grade 3 (severe retention): 36-50% at 4h ?? Grade 4 (very severe retention): >50% retention at 4h ? Electronically signed by: ??Chirag Basurto MD ??01/18/2025 02:19 PM EDT ?? RP ? Dictated By: ?Cihrag Basurto MD ? Signed By: ?<Electronically signed by Chirag Basurto MD in OV> ?01/18/25 1419 ? DD/ 0744 ? TD/TT: 01/18/25 1225 ? Car Painter: ? Procedure Note Donotuseinterpreter, Image - 01/18/[address] [address] Nuclear Medicine Report Signed Patient: Mirta Dunne #: [id number] : 1970Acct:[id number] Age/Sex: 54 / FADM Date: 01/18/25 Loc: [facility] Attending Dr: Gila HAWLEY Ordering Physician: Gila Mackenzie Date of Service: 01/18/25 Procedure(s): NM gastric emptying study Accession Number(s): [id number] cc: Saima Villanueva MD; Gila Mackenzie EXAMINATION: NM RADIONUCLIDE SOLID FOOD GASTRIC EMPTYING 4-HOUR STUDY CLINICAL INFORMATION: K21.9 - Gastro-esophageal reflux disease without esophagitis COMPARISON: None TECHNIQUE: A standard meal consisting of 4 oz of Egg Beaters brand tagged with 0.95 mCi Tc-99m Sulfur Colloid, 8 oz water and 1.5 slices of toast with jelly was administered orally to the patient. Images were obtained using a dual head gamma camera in the anterior and posterior projections over of the stomach immediately post ingestion and at hourly intervals up to 4 hours post ingestion. The anterior and posterior counts at each time interval were averaged using the geometric mean and expressed as percentage of the immediate post ingestion counts. FINDINGS: There is visualization of activity in the stomach immediately post ingestion. As the study progresses, there is clearance of activity from the stomach and visualization of progressively increasing small bowel activity. By the end of the study, there is almost no retention noted in the stomach. Retention in the stomach at each time interval was: 1 hour 73% (normal 37%-90%) 2 hours 38% (normal 30%-60%) 3 hours 19% 4 hours 2% (normal 0%-10%) NM/NM gastric emptying study IMPRESSION: Normal 4-hour solid food gastric emptying study. For solid meal, rapid gastric emptying is less than 30% at 60 minutes. Delayed gastric emptying criteria is more than 60% remaining at 120 minutes or more than 10% at 240 minutes. The 4-hour value is the best discriminator of a normal or abnormal result). Gastric emptying study grading per JNMT Consensus Recommendations in 2008 (https://tech.snmjournals.org/content/36/44) Grade 1 (mild retention): 11-20% at 4h Grade 2 (moderate retention): 21-35% at 4h Grade 3 (severe retention): 36-50% at 4h Grade 4 (very severe retention): >50% retention at 4h Electronically signed by: Chirag Basurto MD 01/18/2025 02:19 PM EDT Dictated By: Chirag Basurto MD Signed By: <Electronically signed by Chirag Basurto MD in OV> 01/18/25 1419 DD/ 0744 TD/TT: 01/18/25 1225 Car Painter: [facility] External Provider IMG NM PROCEDURES Edited Result - Final * (ABNORMAL) POCT HGB A1C (01/16/2025 11:00 AM EDT) Hemoglobin A1C 8.9(A) 4.0 - 6.0 % QC Media Lot # [id number] Lot# Expiration Date ,027 Blood 01/16/2025 11:0 0 AM EDT Saima Dubois MD POINT OF CARE TEST EN TER/EDIT ORDERABLES Final Result * (ABNORMAL) POCT Glucose (01/16/2025 11:00 AM EDT) Glucose Blood, POC 234(A) 60 - 200 mg/dL Comment:random QC Media Lot # [id number] Lot# Expiration Date 025 Blood Capillary blood specimen / Unknown 01/16/2025 11:00 AM EDT us Saima Dubois MD POINT OF CARE TEST EN TER/EDIT ORDERABLES Final Result * HM PAP/HPV (07/05/2024 1:19 PM EDT) us Historical Provider HEALTH MAINTENANCE Final Result [facility] [address] [place] [address] * BI Mammogram Screening Tomosynthesis Bilateral (06/02/2024 3:15 PM EDT) Anatomical Region Laterality Modality Breast Bilateral Mammography 06/02/2024 3:15 PM EDT Narrative 06/21/2024 6:02 PM EDT ? [facility] ? [address] ?[place] [address] ? Mammography Report ? Signed ? Patient: America Dunne ?MR ?? #: [id number] ? : 1970 ?Acct:[id number] ? Age/Sex: 53 / F ?ADM Date: 06/02/24 ? Loc: HO.MAMMO ? Attending Dr: Saima Dubois MD ? Ordering Physician: Saima Villanueva MD ?Results: ?? 1Negative ? Date of Service: 06/02/24 ?Follow Up: 1 Year From Orig ?? inal Mammogram ? Procedure(s): MM tomosynthesis screening BI ?? Accession Number(s): [id number] ? cc: Saima Villanueva MD ? EXAMINATION: [...] ? Signed By: ?<Electronically signed by Darlene Caballero DO in OV> ? 06/21/24 1759 ? DD/ 1515 ? TD/TT: 06/02/24 1540 ? Car Painter: ? Procedure Note Mario, Image - 06/21/2024 [facility] [address] [place] [address] Dr. [place], [place] [address] Mammography Report Signed Patient: Mirta Dunne #: [id number] : 1970Acct:[id number] Age/Sex: 53 / FADM Date: 06/02/24 Loc: HO.MAMMO Attending Dr: Saima Dubois MD Ordering Physician: Saima Villanueva MDResults: 1Negative Date of Service: 06/02/24Follow Up: 1 Year From Orig inal Mammogram Procedure(s): MM tomosynthesis screening BI Accession Number(s): [id number] cc: Saima Villanueva MD EXAMINATION: MM SCREENING [...] 06/21/24 1759 DD/ 1515 TD/TT: 06/02/24 1540 Car Painter: us Saima Dubois MD IMG BI PROCEDURES Mirza heather Result - Final * (ABNORMAL) Lipid Panel, Standard (04/28/2024 9:05 AM EDT) Triglycerides 135 <150 mg/dL [facility] Comment:Desirable Triglyceri de: less than 150 mg/dLBorderline High Triglyceride 150-199 mg/dLHigh Triglyceride: 200-499 mg/dLVery High Triglyceride: greater than or equal to 5OO mg/dL Cholesterol 227(H) <200 mg/dL [facility] Comment:Desirable Cholestero l: less than 200 mg/dLBorderline High Cholesterol: 200-239 mg/dLHigh Cholesterol: greater than 239 mg/dL LDL Cholesterol Calculated 157(H) <100 mg/dL [facility] Comment:Desirable LDL: less than 100 mg/dLNear Optimal/Above Optimal LDL: 110- 129 mg/dLBorderline High LDL: 130-159 mg/dLHigh LDL: 160-189 mg/dLVery High LDL: greater than or equal to 190 mg/dL HDL Cholesterol 43 >40 mg/dL [facility] Comment:Desirable HDL: great er than 40 mg/dL Note: This HDL assay may give artificially low results in patients with liver disease. Blood Venous blood specimen / Unknown 04/28/2024 9:05 AM EDT 04/28/2024 11:02 AM EDT Isai Fregoso MD LAB BLOOD ORDERABL ES Final Result [facility] [address] [place] [address] [phone] from Last 3 Months or Most Recently Relevant to Health Maintenance Insurance [facility] [place] AD[place] Care Teams Copper Plate Lithographer Relationship Specialty Start Date End Date Saima Villanueva MD [address] [place] [address] PCP - General Internal Medicine 05/12/24
[2025-02-07 11:42] LABS: MANUAL DIFF FLAG NO
[2025-02-07 12:04] LABS: Basophils Percent Auto 0.8 % (0-2); Eosinophils Absolute Auto 0.2 X10*3/uL (0.0-0.4); Eosinophils Percent Auto 3.8 % (0-4); Hematocrit 38.5 % (37.0-47.0); Imm Gran Abs Auto 0.01 X10*3/uL (0.00-0.03); Imm Gran Pct Auto 0.2 % (0.0-0.4); Lymphocytes Absolute Auto 2.7 X10*3/uL (1.2-4.9); Lymphocytes Percent Auto 52.4 % (20-40); Mean Corpuscular HGB Conc 33.8 g/dl (31.0-35.0); Mean Platelet Volume 11.6 fL (9.4-12.3); Monocytes Absolute Auto 0.4 X10*3/uL (0.1-1.2); Monocytes Percent Auto 6.9 % (2-11); Neutrophils Absolute Auto 1.9 x10*3/uL (2.0-8.3); Neutrophils Percent Auto 35.9 % (45-73); Platelet Count 245 X10*3/uL (160-400); Red Blood Count 4.64 X10*6/uL (4.20-5.50); White Blood Count 5.2 X10*3/uL (4.8-10.8)
[2025-02-07 12:29] LABS: Alanine Aminotransferase 74 U/L (0-31); Albumin Level 4.5 g/dL (3.5-5.0); Alkaline Phosphatase 88 U/L (39-117); Anion Gap 11 (12-20); Aspartate Amino Transferase 56 U/L (5-31); Bilirubin Total 0.3 mg/dL (0.0-1.0); Blood Urea Nitrogen 12 mg/dL (9-16); Calcium 9.8 mg/dL (8.4-10.2); Carbon Dioxide 29 mmol/L (22-29); Chloride 106 mmol/L (96-108); Cholesterol 291 mg/dL (<200); Estimated Glomerular Filt Rate > 60; Glucose Random 129 mg/dL (60-115); HDL Cholesterol 42 mg/dL (>40); LDL Cholesterol Calculated 218 mg/dL (<100); Potassium 4.6 mmol/L (3.3-5.1); Sodium 141 mmol/L (135-145); Total Protein 7.8 g/dL (6.5-8.0); Triglycerides 156 mg/dL (<150)
[2025-02-07 12:33] LABS: Creatinine Urine 77.66 mg/dL; Microalbum/Creatinine Ratio Ur 203.4 ug/mg cr (<30)
== END 2025-02-07 09:47 | disposition home or self-care (01) ==
LOC: HO.HHCL 09:46
PROVIDERS: Nurse Practitioner; Visit Provider Internal Medicine
DX: E11.65 Type 2 diabetes mellitus with hyperglycemia (principal); K21.9 Gastro-esophageal reflux disease without esophagitis; D12.6 Benign neoplasm of colon, unspecified; R68.81 Early satiety; Z80.0 Family history of malignant neoplasm of digestive organs
CPT/HCPCS: 36415; 80053; 80061; 82043; 82570; 85025

== ENCOUNTER 2025-02-07 10:25 | Outpatient (REF) | payer MEDICAID, SELFPAY ==
--- NOTE | ~2025-02-07 | CT_ITS ---
CLINICAL HISTORY: R91.8 - Other nonspecific abnormal finding of lung field CT chest without contrast Comparison: CT/RI/SR - CT CHEST WO IV CON - 08/05/24 15:19 EST Findings: The heart size is normal. The visualized thyroid and mediastinum are unremarkable. The lungs are clear. Stable in size of the 5.1 mm nodule of the right lower lobe series 4, image 63. Hepatic steatosis. No acute fractures. IMPRESSION: Stable pulmonary nodule of the right lower lobe. CT chest follow-up in 1 year is recommended as indicated. Fleischner Society 2017 Guidelines for incidentally detected indeterminate nodules in persons 35 years of age or older. Single Solid Nodules: 5 mm or smaller nodules need no follow-up in low risk, and [address] follow-up is optional in high risk patients. 6-8 mm nodules have optional [address] follow-up in low risk, and 6-[address] follow-up followed by 18-[address] follow-up if no change in high risk patients. 9 mm or larger nodules should consider CT, PET/CT, or biopsy at 3 months regardless of patient risk. Multiple Solid Nodules: 5 mm or smaller nodules need no follow-up in low risk, and [address] follow-up is optional in high risk patients. 6-8 mm nodules need 3-[address] follow-up followed by an optional 18-[address] follow-up regardless of patient risk. 9 mm or larger nodules should consider 3-[address] follow-up. For low risk 18-24 month follow-up is optional, whereas for high risk it is needed. Single Ground Glass Nodules: 5 mm or smaller nodules need no followup 6 mm and larger nodules need CT at 6-12 months to confirm persistence, then CT every 2 years until 5 years Single Subsolid Nodules: 5 mm or smaller nodules need no followup 6 mm and larger nodules need CT at 3-6 months to confirm persistence. If no change and solid component /T/lt;6 mm, then CT every year until 5 years Multiple Ground Glass or Subsolid Nodules: 5 mm or smaller nodules need CT at 3-6 months. If stable, optional CT at 2 and 4 years. 6 mm or larger nodules need CT at 3-6 months. Subsequent management based on most suspicious nodule This document has been electronically signed by: Gal Johnson MD on 02/07/2025 13:05:34
[2025-02-07 11:14] LABS: Alanine Aminotransferase 72 U/L (0-31); Albumin Level 4.5 g/dL (3.5-5.0); Alkaline Phosphatase 85 U/L (39-117); Anion Gap 11 (12-20); Aspartate Amino Transferase 56 U/L (5-31); Bilirubin Total 0.3 mg/dL (0.0-1.0); Blood Urea Nitrogen 12 mg/dL (9-16); Calcium 9.9 mg/dL (8.4-10.2); Carbon Dioxide 29 mmol/L (22-29); Chloride 107 mmol/L (96-108); Estimated Glomerular Filt Rate > 60; Glucose Random 120 mg/dL (60-115); Potassium 4.8 mmol/L (3.3-5.1); Sodium 142 mmol/L (135-145); Total Protein 7.6 g/dL (6.5-8.0)
--- OUTSIDE RECORDS SUMMARY | 2025-02-07 11:36 | XMS_ITS | Encounter Summary ---
Author Organization [employer] Address [address] [place] [address] Care Team Providers Care Tv Host Name Role Phone Saima Villanueva MD Primary Care Provide r Encounter Details Date Type Department Care Team ([facility] st Contact Info) Description 10/17/2024 Orders Only [facility] MEDICINE [address] [place] [address] Provider, Marian, Social History Tobacco Use Types [...] Description 04/18/2025 10:45 AM EDT Office Visit [facility] MEDICINE [address] [place] [phone] Saima Villanueva MD [address] [place] [address] documented as of this encounter Procedures Procedure Name Priority Date/Time Associated Diagnosis Comments HM PAP/HPV Routine 07/05/2024 1:19 PM EDT documented in this encounter Results * HM PAP/HPV (07/05/2024 1:19 PM EDT) us Historical Provider HEALTH MAINTENANCE Final Result Performing Organization Address City/State/[facility] Co de Phone Number [facility] [address] [place] [address] documented in this encounter Visit Diagnoses Not on filedocumented in this encounter Additional Health Concerns Assessment Noted Time PHQ-9 Depression Total Score: 10 025 10:50 AM EST documented as of this encounter Care Teams Tv Host Relationship Specialty Start Date End Date Saima Villanueva MD [address] [place] [phone] PCP - General Internal Medicine 05/12/24 documented as of this encounter
--- OUTSIDE RECORDS SUMMARY | 2025-02-07 11:36 | XMS_ITS | Encounter Summary ---
Author Organization [employer] Address [address] [facility] [address] [place] [address] Care Team Providers Care Toe Sewer Name Role Phone Saima Villanueva MD Primary Care Provide r Encounter Details Date Type Department Care Team (Late st Contact Info) Description 02/07/2025 Orders Only GENERIC EXTERNAL DATA DEPARTMENT Provider, Generic External Data Social History Tobacco Use Types Packs/Day Years [...] Description 04/18/2025 10:45 AM EDT Office Visit [facility] MEDICINE [address] [place] [address] Saima Villanueva MD [address] [place] [address] documented as of this encounter Procedures Procedure Name Priority Date/Time Associated Diagnosis Comments COMPREHENSIVE METABOLIC PANEL Routine 02/07/2025 10:31 AM EDT documented in this encounter Results * (ABNORMAL) Comprehensive Metabolic Panel (02/07/2025 10:31 AM EDT) Sodium 142 135 - 145 mmol/L [facility] Potassium 4.8 3.3 - 5.1 mmol/L [facility] Chloride 107 96 - 108 mmol/L [facility] Carbon Dioxide 29 22 - 29 mmol/L [facility] Anion Gap 11(L) 12 - 20 [facility] Urea Nitrogen (BUN) 12 9 - 16 mg/dL [facility] Creatinine, Serum 0.82 0.5 - 1.4 mg/dL [facility] Estimated Glomerular Filt Rate >60 [facility] Comment:Chronic Kidney Disea se: Estimated GFR < 60 mL/min/1.02n0Ilnnom Kidney Disease: Estimated GFR < 15 mL/min/1.73m2 Glucose 120(H) 60 - 115 mg/dL [facility] Calcium 9.9 8.4 - 10.2 mg/dL [facility] Bilirubin, Total 0.3 0.0 - 1.0 mg/dL [facility] Aspartate Amino Transferase 56(H) 5 - 31 U/L [facility] Alanine Aminotransferase 72(H) 0 - 31 U/L [facility] Total Protein 7.6 6.5 - 8.0 g/dL [facility] Albumin Level 4.5 3.5 - 5.0 g/dL [facility] Alkaline Phosphatase 85 39 - 117 U/L [facility] 02/07/2025 10:3 1 AM EDT 02/07/2025 10:31 AM EDT us Generic External Data Provider LAB BLOOD ORDERAB LES Final Result Performing Organization Address City/State/[facility] Co de Phone Number [facility] [address] [place] [phone] documented in this encounter Visit Diagnoses Not on filedocumented in this encounter Additional Health Concerns Assessment Noted Time PHQ-9 Depression Total Score: 10 025 10:50 AM EST documented as of this encounter Care Teams Toe Sewer Relationship Specialty Start Date End Date Saima Villanueva MD [address] [place] [address] PCP - General Internal Medicine 05/12/24 documented as of this encounter
--- OUTSIDE RECORDS SUMMARY | 2025-02-07 11:36 | XMS_ITS | Clinical Summary ---
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 30 tablet 11 025 2025 Active FREESTYLE LITE test stripIndication s:Type 2 diabetes mellitus without complication, without long-term current use of insulin ([facility]) Use to test blood sugar 1 times daily 100 each 025 2025 Active Lancets miscIndications :Type 2 diabetes mellitus without complication, without long-term current use of insulin ([facility]) Use to test blood sugar 1 times daily 100 each 025 Active Alcohol Swabs 70 % padsIndications :Type 2 diabetes mellitus without complication, without long-term current use of insulin ([facility]) Use to test blood sugar 1 times daily 100 each 025 Active Blood Glucose Monitoring Suppl (FreeStyle [place] Lite) w/Device kitIndications: Type 2 diabetes mellitus without complication, without long-term current use of insulin ([facility]) Use to test blood sugar [...] complication, without long-term current use of insulin ([facility]) Take 1 tablet (850 mg) [...] hyperglycemia, without long-term current use of insulin ([facility]) Inject 0.75 mg under the [...] healthy diet (low calorie) and cardiovascular exercise Aircraft Communicator referral today Type 2 diabetes mellitus wit [...] organization. Date Type Department Care Team Description 02/07/2025 Orders Only GENERIC EXTERNAL DATA DEPARTMENT Provider, Generic External Data 01/18/2025 Orders Only [facility] External Provider, [facility] 01/16/2025 11:15 AM EDT Office Visit [facility] [address] [place] [address] Saima Villanueva MD Type 2 diabetes mellitus with hyperglycemia, without long-term current use of insulin ([facility]) (Primary Dx); Neuropathy; Gastroesophageal reflux disease, unspecified whether esophagitis present; Primary hypertension 01/16/2025 Travel 01/12/2025 Telephone [facility] [address] [place] [address] Saima Villanueva MD Chart prep 01/09/2025 Travel 01/03/2025 3:15 PM EDT Office Visit [facility] [address] [place] [address] Sofifernando Nancy, OD Type 2 diabetes mellitus without ophthalmic manifestations (CMS/HCC) (Primary Dx); Dry eyes, bilateral; Regular astigmatism, bilateral 01/03/2025 Travel 12/27/2024 Travel 12/02/2024 Population Health Risk Score [facility] () Department [address] [place] [id number] Provider, Population Health Generic 11/22/2024 Telephone [facility] [address] [place] [address] Saima Villanueva MD nutrition aoppt request from [...] Description 04/18/2025 10:45 AM EDT Office Visit [facility] [address] [place] [address] Saima Villanueva MD [address] [place] [address] Health Maintenance Due Date Last Done Comments [...] - 19+ 3-dose series) 1988 COVID-19 Vaccine (1 - 2023-25 season) 2024 Influenza Vaccine (#1) 2024 Diabetes: [...] METABOLIC PANEL Routine 02/07/2025 10:31 AM EDT NM GASTRIC EMPTYING SOLID Routine 01/18/2025 7:44 AM EDT POCT GLYCATED HEMOGLOBIN, TOTAL Routine 01/16/2025 11:00 AM EDT Type 2 diabetes mellitus with hyperglycemia, without long-term current use of insulin ([facility]) POCT GLUCOSE Routine 01/16/2025 11:00 AM EDT Type 2 diabetes mellitus with hyperglycemia, without long-term current use of insulin ([facility]) BITEWING - SINGLE RADIOGRAPHIC IMAGE Routine 09/27/2024 11:00 AM EST HM PAP/HPV Routine 07/05/2024 1:19 PM EDT BI MAMMOGRAM SCREENING TOMOSYNTHESIS BILATERAL Routine 06/02/2024 3:15 PM EDT Encounter for screening mammogram for breast cancer LIPID PANEL, STANDARD Routine 04/28/2024 9:05 AM EDT Type 2 diabetes mellitus without complication, without long-term current use of insulin ([facility]) from Last 3 Months or Most Recently Relevant to Health Maintenance Results * (ABNORMAL) Comprehensive Metabolic Panel (02/07/2025 10:31 AM EDT) Sodium 142 135 - 145 mmol/L [facility] Potassium 4.8 3.3 - 5.1 mmol/L [facility] Chloride 107 96 - 108 mmol/L [facility] Carbon Dioxide 29 22 - 29 mmol/L [facility] Anion Gap 11(L) 12 - 20 [facility] Urea Nitrogen (BUN) 12 9 - 16 mg/dL [facility] Creatinine, Serum 0.82 0.5 - 1.4 mg/dL [facility] Estimated Glomerular Filt Rate >60 [facility] Comment:Chronic Kidney Disea se: Estimated GFR < 60 mL/min/1.14b4Ghawfi Kidney Disease: Estimated GFR < 15 mL/min/1.73m2 Glucose 120(H) 60 - 115 mg/dL [facility] Calcium 9.9 8.4 - 10.2 mg/dL [facility] Bilirubin, Total 0.3 0.0 - 1.0 mg/dL [facility] Aspartate Amino Transferase 56(H) 5 - 31 U/L [facility] Alanine Aminotransferase 72(H) 0 - 31 U/L [facility] Total Protein 7.6 6.5 - 8.0 g/dL [facility] Albumin Level 4.5 3.5 - 5.0 g/dL [facility] Alkaline Phosphatase 85 39 - 117 U/L [facility] 02/07/2025 10:3 1 AM EDT 02/07/2025 10:31 AM EDT us Generic External Data Provider LAB BLOOD ORDERAB LES Final Result [facility] [address] [place] [address] [phone] * NM Gastric Emptying Solid (01/18/2025 7:44 AM EDT) Anatomical Region Laterality Modality Body Nuclear Medicine 01/18/2025 7:44 AM EDT Narrative 01/18/2025 2:22 PM EDT ? [facility] ?[address] ?[place] [address] ?Nuclear Medicine Report ? Signed ? Patient: Karo Fountain,[place] ?MR ?? #: [id number] ? : 1970 ?Acct:[id number] ? Age/Sex: 54 / F ?ADM Date: 04/30/25 ? Loc: HO.NUCMED ? Attending : Gila HAWLEY ? Ordering Physician: Gila Mackenzie ?? Date of Service: 01/18/25 ?? Procedure(s): NM gastric emptying study ?? Accession Number(s): [id number] ? cc: Saima Villanueva MD; Gila Mackenzie [...] PM EDT ?? RP ? Dictated By: ?Chirag Basurto MD ? Signed By: ?<Electronically signed by Chirag Basurto MD in OV> ?01/18/25 1419 ? DD/ 0744 ? TD/TT: 01/18/25 1225 ? Cadd Manager: ? Procedure Note Donotuseinterpreter, Image - 01/18/[address] [address] Nuclear Medicine Report Signed Patient: Mirta Dunne #: [id number] : 1970Acct:[id number] Age/Sex: 54 / FADM Date: 01/18/25 Loc: [facility] Attending Dr: Gila HAWLEY Ordering Physician: Gila Mackenzie Date of Service: 01/18/25 Procedure(s): NM gastric emptying study Accession Number(s): [id number] cc: Saima Villanueva MD; Gila Mackenzie EXAMINATION: [...] 01/18/25 1419 DD/ 0744 TD/TT: 01/18/25 1225 Cadd Manager: [facility] External Provider IMG NM PROCEDURES Edited Result - Final * (ABNORMAL) POCT HGB A1C (01/16/2025 11:00 AM EDT) Hemoglobin A1C 8.9(A) 4.0 - 6.0 % QC Media Lot # [id number] Lot# Expiration Date , Blood 01/16/2025 11:0 0 AM EDT Saima [...] us Historical Provider HEALTH MAINTENANCE Final Result [facility] [address] [place] [address] * BI Mammogram Screening Tomosynthesis Bilateral (06/02/2024 3:15 PM EDT) Anatomical Region Laterality Modality Breast Bilateral Mammography 06/02/2024 3:15 PM EDT Narrative 06/21/2024 6:02 PM EDT ? [facility] ? [address] ?[place] [address] ? Mammography Report ? Signed ? Patient: Karo Fountain,[place] ?MR ?? #: [id number] ? : 1970 ?Acct:[id number] ? Age/Sex: 53 / F ?ADM Date: 06/02/24 ? Loc: HO.MAMMO ? Attending Dr: Saima Dubois MD ? Ordering Physician: Saima Villanueva MD ?Results: ?? 1Negative ? Date of Service: 06/02/24 ?Follow Up: 1 Year From Orig ?? inal Mammogram ? Procedure(s): MM tomosynthesis screening BI ?? Accession Number(s): [id number] ? cc: Saima Villanueva MD ? EXAMINATION: [...] DD/ 1515 ? TD/TT: 06/02/24 1540 ? Cadd Manager: ? Procedure Note Mario, Image - 06/21/2024 [facility] [address] [place] [address] Dr. [place], [place] [address] Mammography Report Signed Patient: Mirta Dunne #: [id number] : 1970Acct:[id number] Age/Sex: 53 / FADM Date: 06/02/24 Loc: HO.MAMMO Attending Dr: Saima Dubois MD Ordering Physician: Saima Villanueva MDResults: 1Negative Date of Service: 06/02/24Follow Up: 1 Year From Orig inal Mammogram Procedure(s): MM tomosynthesis screening BI Accession Number(s): [id number] cc: Saima Villanueva MD EXAMINATION: MM SCREENING [...] 06/21/24 1759 DD/ 1515 TD/TT: 06/02/24 1540 Cadd Manager: us Saima Dubois MD IMG BI PROCEDURES Mirza heather Result - Final * (ABNORMAL) Lipid Panel, Standard (04/28/2024 9:05 AM EDT) Triglycerides 135 <150 mg/dL [facility] Comment:Desirable Triglyceri de: less than 150 mg/dLBorderline High Triglyceride 150-199 mg/dLHigh Triglyceride: 200-499 mg/dLVery High Triglyceride: greater than or equal to 5OO mg/dL Cholesterol 227(H) <200 mg/dL [facility] Comment:Desirable Cholestero l: less than 200 mg/dLBorderline High Cholesterol: 200-239 mg/dLHigh Cholesterol: greater than 239 mg/dL LDL Cholesterol Calculated 157(H) <100 mg/dL [facility] Comment:Desirable LDL: less than 100 mg/dLNear Optimal/Above Optimal LDL: 110- 129 mg/dLBorderline High LDL: 130-159 mg/dLHigh LDL: 160-189 mg/dLVery High LDL: greater than or equal to 190 mg/dL HDL Cholesterol 43 >40 mg/dL [facility] Comment:Desirable HDL: great er than 40 mg/dL Note: This HDL assay may give artificially low results in patients with liver disease. Blood Venous blood specimen / Unknown 04/28/2024 9:05 AM EDT 04/28/2024 11:02 AM EDT Isai Fregoso MD LAB BLOOD ORDERABL ES Final Result [facility] [address] [place] [phone] from Last 3 Months or Most Recently Relevant to Health Maintenance Insurance [facility] [place] AD[place] Care Teams Dry Heat Cabinet Attendant Relationship Specialty Start Date End Date Saima Villanueva MD [address] [place] [phone] PCP - General Internal Medicine 05/12/24
== END 2025-02-07 10:26 | disposition home or self-care (01) ==
LOC: HO.CT 10:25
PROVIDERS: Absent Provider Nurse Practitioner; PCP Internal Medicine; Visit Provider Internal Medicine Pulmonary Disease
DX: R91.8 Other nonspecific abnormal finding of lung field (principal); R68.81 Early satiety; K21.9 Gastro-esophageal reflux disease without esophagitis; D12.6 Benign neoplasm of colon, unspecified; E11.9 Type 2 diabetes mellitus without complications; Z80.0 Family history of malignant neoplasm of digestive organs
CPT/HCPCS: 36415; 71250; 80053

== ENCOUNTER → 2025-02-07 11:37 | Outpatient (BNV) | payer MEDICAID, SELFPAY | PROVIDERS: Absent Provider Nurse Practitioner; PCP Internal Medicine; Visit Provider Nuclear Medicine | DX: R91.1 Solitary pulmonary nodule (principal) | CPT/HCPCS: 71250 ==

== ENCOUNTER 2025-06-29 09:08 | Outpatient (REF) | payer MEDICAID, SELFPAY ==
--- NOTE | ~2025-06-29 | FL_ITS ---
EXAMINATION: XR BARIUM SWALLOW CLINICAL INFORMATION: Gastro-esophageal reflux disease without esophagitis COMPARISON: None available. TECHNIQUE: Patient was administered thin and thick barium and effervescent granules. Barium tablet was also administered. FINDINGS: Swallowing mechanism is normal. No aspiration or penetration. Esophageal motility is normal. There is gastroesophageal reflux. No hernia, mass or stricture. Barium tablet passed freely into the stomach. FLUOROSCOPY TIME: 1 minute 25 seconds DOSE AREA PRODUCT: 890 uGy-m2 (microgray-meter squared) FL/FL barium swallow IMPRESSION: Gastroesophageal reflux. Otherwise unremarkable exam. Electronically signed by: Val Dos Santos MD 06/29/2025 11:23 AM EDT
== END 2025-06-29 09:09 | disposition home or self-care (01) ==
LOC: HO.XRAY 09:08
PROVIDERS: PCP Internal Medicine; Visit Provider Nurse Practitioner
DX: K21.9 Gastro-esophageal reflux disease without esophagitis (principal); D12.6 Benign neoplasm of colon, unspecified; R68.81 Early satiety; E11.9 Type 2 diabetes mellitus without complications; Z80.0 Family history of malignant neoplasm of digestive organs
CPT/HCPCS: 74220

== ENCOUNTER → 2025-06-29 09:10 | Outpatient (BNV) | payer MEDICAID, SELFPAY | PROVIDERS: PCP Internal Medicine; Visit Provider Radiology Diagnostic Radiology | DX: K21.9 Gastro-esophageal reflux disease without esophagitis (principal) | CPT/HCPCS: 74221 ==

== ENCOUNTER 2025-08-24 12:10 | Outpatient (AMB) | payer MEDICAID, SELFPAY ==
[2025-08-24 12:17] VITALS: BP 129/75; PULSE 75; BMI 32.8
--- NOTE | 2025-08-24 12:17 | MHC.OFFVIS ---
Vital Signs 08/24/25 12:17 Height 5 ft 3 in Weight 185 lb BMI 32.8 BP 129/75 Blood Pressure Location Lt brachial Position Sitting Pulse 75 Intake Visit Reasons: f/u Gastric emptying and barium swallow Intake Note: Patient in follow up for gastric emptying and barium swallow results. CC Patient states that she always feels full and is not eating much. She states that she is able to have BMs with medication prescribed by December. She reports a lot of nausea too. Tooth Cutter Clutch Required: No Accompanied by: Self / Same As Patient Allergies No Known Allergies Allergy (Verified 08/24/25 12:41) HPI HPI f/u Gastric emptying and barium swallow: Details: Assessment & Plan (1) Diabetes mellitus: Code(s): E11.9 - Type 2 diabetes mellitus without complications Category: Medical (2) Tubular adenoma of colon: Code(s): D12.6 - Benign neoplasm of colon, unspecified Category: Medical (3) GERD (gastroesophageal reflux disease): Code(s): K21.9 - Gastro-esophageal reflux disease without esophagitis Category: Medical (4) Family history of colon cancer in mother: Comment: mother age 87 Code(s): Z80.0 - Family history of malignant neoplasm of digestive organs Category: Medical (5) Early satiety: Code(s): R68.81 - Early satiety Category: Medical (6) Erosive esophagitis: Code(s): K22.10 - Ulcer of esophagus without bleeding Category: Medical (7) Dysphagia: Code(s): R13.10 - Dysphagia, unspecified Category: Medical Plan [place] #[facility] She is here for both colonoscopy screening and for evaluation of GERD. She says that everything gives he stomach aches and HB. It will come all the way up to her mouth with burning. She has to sleep sitting up and on the left side. This has been a problem for 3 years. SHe is on both pantoprazole qam and famotidine qhs and an OTC digestive enzyme. There is no particular time of day that she has breakthrough. She has constant bloating and early satiety. She can not ID any preceeding event to the onset of sx. She does not know her FHX. She also suffers CIC with very hard stools and straining. She is taking Miralax now w/o good effect. She has also failed senna, fiber, colace and has at times had to take up to 5 bisacodyl a day to get a BM. This has been a lifelong challenge. She has had a prior EGD/colonoscopy 3 years ago and she was told that she had reflux, gastritis and ulcers. She says she had polyps and she was told she needed a 1 year repeat but she does not know for sure why. She has the report at home. Her mother of CRC at age 86. she also has associated dysphagia in the area of the voicebox of both solids and liquids but nore often with solids and a globus sensation. She has never had a barium swallow. Start Linzess 145mcg, change to lansoprazole 30mg bid if insurance, EGD/colonoscopy, barium swallow, GES. Her asthma is well controlled. No ID problems. NO anes or sed problems. ROV next available Orders: Orders Comprehensive Met. Panel Today D12.6 - Benign neoplasm of colon, unspecified, E11.9 - Type 2 diabetes mellitus without complications, K21.9 - Gastro-esophageal reflux disease without esophagitis, R68.81 - Early satiety, Z80.0 - Family history of malignant neoplasm of digestive organs Complete Blood Count Auto Diff Today D12.6 - Benign neoplasm of colon, unspecified, E11.9 - Type 2 diabetes mellitus without complications, K21.9 - Gastro-esophageal reflux disease without esophagitis, R68.81 - Early satiety, Z80.0 - Family history of malignant neoplasm of digestive organs EGD/[place] Combo - GI Use Only Today D12.6 - Benign neoplasm of colon, unspecified, E11.9 - Type 2 diabetes mellitus without complications, K21.9 - Gastro-esophageal reflux disease without esophagitis, R68.81 - Early satiety, Z80.0 - Family history of malignant neoplasm of digestive organs NM gastric emptying study Today D12.6 - Benign neoplasm of colon, unspecified, E11.9 - Type 2 diabetes mellitus without complications, K21.9 - Gastro-esophageal reflux disease without esophagitis, R68.81 - Early satiety, Z80.0 - Family history of malignant neoplasm of digestive organs FL barium swallow Today D12.6 - Benign neoplasm of colon, unspecified, E11.9 - Type 2 diabetes mellitus without complications, K21.9 - Gastro-esophageal reflux disease without esophagitis, R68.81 - Early satiety, Z80.0 - Family history of malignant neoplasm of digestive organs Medications: New lansoprazole 30 mg PO BID 60 caps 6RF K22.10 - Ulcer of esophagus without bleeding, R13.10 - Dysphagia, unspecified peg 3350-electrolytes 236-22.74-6.74 -5.86 gram (Golytely) until fecal effluent is clear; do not exceed a total volume of 2,000 mL 240 mL PO Q10M 1 day 4,000 mL 0RF Z12.11 - Encounter for screening for malignant neoplasm of colon bisacodyl (Dulcolax (bisacodyl)) 10 mg (2 x 5 mg) PO BEDTIME 2 days 4 tabs 0RF linaclotide (Linzess) Take first thing in the morning with a full glass of water. 145 mcg PO QAM 30 caps 3RF K58.1 - Irritable bowel syndrome with constipation Laboratory Tests 02/07/25 02/07/25 09:38 10:31 WBC 5.2 Hgb 13.0 Hct 38.5 Plt Count 245 Estimated GFR > 60 Total Bilirubin 0.3 AST 56 H ALT 72 H Alkaline Phosphatase 85 Barium swallow 07/2025 FINDINGS: Swallowing mechanism is normal. No aspiration or penetration. Esophageal motility is normal. There is gastroesophageal reflux. No hernia, mass or stricture. Barium tablet passed freely into the stomach. FLUOROSCOPY TIME: 1 minute 25 seconds DOSE AREA PRODUCT: 890 uGy-m2 (microgray-meter squared) FL/FL barium swallow IMPRESSION: Gastroesophageal reflux. Otherwise unremarkable exam. Gastric emptying study in 12/2024 IMPRESSION: Normal 4-hour solid food gastric emptying study. EGD/COLONOSCOPY BIOPSY todays visit [place] # Ignacio Elkin [facility] Medical History Low back pain Muscle spasm of back Bilateral knee pain Diabetes mellitus Cervical cancer Moderate persistent asthma Pulmonary nodules Surgical History History of esophagogastroduodenoscopy (EGD) H/O colonoscopy History of hysterectomy (~2018) Family History Brother Colon polyp Maternal Grandmother Colon cancer Mother Ovarian cancer Social History Household Members: Spouse and Children Household Members Other:: grand-daughters Alcohol intake: never Patient Tobacco Use Status: Never used Tobacco Current occupational status: unemployed Review of Systems Eyes Details: glasses Physical Exam Vital Signs: Last Vital Signs Pulse 75 08/24/25 12:17 BP 129/75 08/24/25 12:17 BMI result Body Mass Index 32.8 Results Reviewed Results Reviewed: Laboratory Tests 02/07/25 02/07/25 09:38 10:31 WBC 5.2 Hgb 13.0 Hct 38.5 Plt Count 245 Estimated GFR > 60 Total Bilirubin 0.3 AST 56 H ALT 72 H Alkaline Phosphatase 85 Barium swallow 07/2025 FINDINGS: Swallowing mechanism is normal. No aspiration or penetration. Esophageal motility is normal. There is gastroesophageal reflux. No hernia, mass or stricture. Barium tablet passed freely into the stomach. FLUOROSCOPY TIME: 1 minute 25 seconds DOSE AREA PRODUCT: 890 uGy-m2 (microgray-meter squared) FL/FL barium swallow IMPRESSION: Gastroesophageal reflux. Otherwise unremarkable exam. Gastric emptying study in 12/2024 IMPRESSION: Normal 4-hour solid food gastric emptying study. Assessment & Plan Assessment & Plan (1) Delayed gastric emptying: Code(s): K30 - Functional dyspepsia Category: Medical (2) Nausea: Code(s): R11.0 - Nausea Category: Medical (3) Diabetes mellitus: Code(s): E11.9 - Type 2 diabetes mellitus without complications Category: Medical (4) GERD (gastroesophageal reflux disease): Code(s): K21.9 - Gastro-esophageal reflux disease without esophagitis Category: Medical (5) Erosive esophagitis: Code(s): K22.10 - Ulcer of esophagus without bleeding Category: Medical (6) Dysphagia: Code(s): R13.10 - Dysphagia, unspecified Category: Medical Plan [place] # Ignacio Granger Subjective Follow-up for heartburn and constipation. Constipation has improved significantly with Linzess, which the patient takes twice weekly timed around work days and prefers to continue at that frequency. Heartburn persists without improvement on lansoprazole. Reports a persistent sensation of food ?stuck? after eating (postprandial fullness) with poor digestion, early satiety after a few bites, and nausea without reported vomiting. Symptoms occur regardless of food type. Prior barium swallow was normal. Endoscopy and colonoscopy are planned; colonoscopy was postponed due to a diabetes injection and has not yet been rescheduled. Relevant Past Medical, Social, and Family History Diabetes mellitus noted in discussion as context for suspected gastric emptying delay. Objective - Barium swallow: normal; no large hiatal hernia or other major abnormalities reported. Assessment & Plan Suspected delayed gastric emptying (gastroparesis): Persistent heartburn with postprandial fullness, early satiety, and nausea; normal barium swallow. Clinical picture suggests delayed gastric emptying, which is common in diabetes. - Start Reglan 5 mg 4 times a day medication 20 mg total daily, taken at breakfast, lunch, supper, and bedtime, whether eating or not. - Do not take the Reglan 5 mg on the day of the gastric emptying study. - Continue current lansoprazole as previously prescribed; the medications are intended to work together. - Order gastric emptying study to objectively assess gastric emptying. - Counseling provided on potential side effects; serious effects are rare and typically associated with doses >80 mg/day over long periods. Instructed to stop and contact me if adverse effects occur. - Follow up after the holidays in September to reassess symptoms and review results as available. Chronic constipation: Improved on current regimen. - Continue Linzess; patient prefers twice-weekly dosing timed around work and is doing well. GERD/heartburn, persistent: Ongoing symptoms despite therapy; addressed in context of suspected delayed gastric emptying. - Continue lansoprazole as previously prescribed. - Proceed with planned endoscopy when scheduled. Medication reconciliation - Reinforced medication list with written ?take? and ?stop? instructions for clarity. - Do not take sucralfate; confirmed patient stopped and will avoid going forward. Procedures/referrals - Encourage rescheduling of colonoscopy; endoscopy pending scheduling. EGD/COLONOSCOPY BIOPSY Medications: New metoclopramide HCl (Reglan) 5 mg PO QIDACHS 120 tabs 6RF K30 - Functional dyspepsia, R11.0 - Nausea Refilled peg 3350-electrolytes 236-22.74-6.74 -5.86 gram (Golytely) until fecal effluent is clear; do not exceed a total volume of 2,000 mL 240 mL PO Q10M 4,000 mL 0RF 1 day Z12.11 - Encounter for screening for malignant neoplasm of colon bisacodyl (Dulcolax (bisacodyl)) 10 mg (2 x 5 mg) PO BEDTIME 4 tabs 0RF 2 days Coding Level of Care Code Est Pt Level 4 (62233) Diagnoses Delayed gastric emptying K30 Nausea R11.0 Diabetes mellitus E11.9 GERD (gastroesophageal reflux disease) K21.9 Erosive esophagitis K22.10 Dysphagia R13.10 Time Spent (min) 33
== END 2025-08-24 13:29 | disposition home or self-care (01) ==
LOC: HO.HGI 12:11
PROVIDERS: PCP Internal Medicine; Visit Provider Nurse Practitioner
DX: K30 Functional dyspepsia (principal); R11.0 Nausea; E11.9 Type 2 diabetes mellitus without complications; K21.9 Gastro-esophageal reflux disease without esophagitis; K22.10 Ulcer of esophagus without bleeding; R13.10 Dysphagia, unspecified
CPT/HCPCS: 99214

== ENCOUNTER → 2025-08-24 12:10 | Outpatient (BNVA) | payer MEDICAID, SELFPAY | PROVIDERS: PCP Internal Medicine; Visit Provider Nurse Practitioner | DX: K21.9 Gastro-esophageal reflux disease without esophagitis (principal); K30 Functional dyspepsia; R11.0 Nausea; K59.09 Other constipation; K22.10 Ulcer of esophagus without bleeding; R13.10 Dysphagia, unspecified; E11.9 Type 2 diabetes mellitus without complications; Z79.84 Long term (current) use of oral hypoglycemic drugs | CPT/HCPCS: 99212 ==